=== PATIENT | male | born 1950 | race Caucasian/White ===

== ENCOUNTER 2016-11-09 14:34 | Inpatient (IN) ==
--- NOTE | 2016-11-09 18:25 | Emergency Department Note ---
START Narrative - START START: 66-year-old gentleman who comes in complaining of difficulty breathing. States that he had 5 stents placed several months ago and has had problems with fluid in his lung and fluid around his gallbladder. States he does have a history of gallbladder problems and is trying to get that removed. The patient comes in today with increasing shortness of breath. Physical examination his lungs are diminished in the bases. We will obtain lab work and the patient will be turned over to the structural test engineer Dr. Drummond for further evaluation.
--- NOTE | 2016-11-09 19:45 | Emergency Department Note ---
Disposition Clinical Impression: Pulmonary embolism Qualifiers: Pulmonary embolism type: other Chronicity: acute Acute cor pulmonale presence: with acute cor pulmonale Qualified Code(s): I26.09 - Other pulmonary embolism with acute cor pulmonale Disposition: Admitted As Inpatient Condition: Fair SOB HPI - General Chief Complaint: ED Shortness of Breath/Dyspnea Stated Complaint: ASUNCION/Edema sent per Dr. Phelan Time Seen by Provider: 11/09/16 19:11 Source: patient Limitations: no limitations Nursing Notes Reviewed: Yes Vital Signs Reviewed: Yes - History of Present Illness Patient here for evaluation of difficulty breathing. Past medical history of CHF diabetes, CAD, hypertension, reported PE and medical record however patient states this was a blood clot in his heart and he was placed on Coumadin for this. Medical records will be investigated. Patient states that he has had increasing symptoms over the last 2 months associated with 20 pound weight gain. Patient was seen by Dr. Phelan and was taken off Coumadin as well as Lasix. Patient had an NE requiring 5 stents approximately 3 years ago with resulting EF 10-15%. Concurrently patient has been having gallbladder symptoms and is seen Dr. Hewitt. Dr. Hewitt is requiring clearance before he will take the patient to surgery. Patient presents today due to increasing dyspnea is keeping him from lying down is becoming more constant limiting his activities of daily living. Patient sent here by Dr. Phelan. - Related Data Home Medications Medication Instructions Recorded Confirmed Ascorbic Acid [Vitamin C with Pat 1,000 mg PO DAILY 11/03/16 11/03/16 Hips] Aspirin 81 mg PO DAILY 11/03/16 11/03/16 Furosemide [Lasix] 40 mg PO DAILY 11/03/16 11/03/16 Glimepiride [Amaryl] 2 mg PO BID 11/03/16 11/03/16 [place]-3/Dha/Epa/Fish Oil [Fish Oil 1,000 mg PO DAILY 11/03/16 11/03/16 1,000 mg Softgel] Vitamin B Complex 1 each PO DAILY 11/03/16 11/03/16 Allergies Allergy/AdvReac Type Severity Reaction Status Date / Time No Known Allergies Allergy Verified 11/09/16 14:38 Constitutional: Reports: weakness, weight change. Denies: fever, chills Eyes: Denies: eye pain ENT ED: Denies: ear pain Cardiovascular: Reports: dyspnea on exertion, orthopnea Respiratory: Reports: cough, dyspnea. Denies: wheezes, sputum production Gastrointestinal: Reports: abdominal pain, nausea Genitourinary: Denies: urgency, dysuria Musculoskeletal: Denies: back pain Integumentary: Denies: rash, abrasion Neurological: Denies: headache, weakness Endocrine: Reports: fatigue Past Medical History - Past Medical History Medical history: Reports: CHF, coronary artery disease, diabetes, hyperlipidemia , hypertension, pulmonary embolus Psychiatric history: Reports: no psych history - Social History Smoking Status: Never smoker Alcohol use: Reports: none Drug use: Reports: none Physical Exam - General Limitations: no limitations General appearance: alert, in no apparent distress - ENT ENT exam: normal exam - Neck Neck exam: Present: normal inspection - Chest Chest inspection: Present: normal inspection - Respiratory Respiratory exam: Present: normal lung sounds bilaterally. Absent: respiratory distress - Cardiovascular Cardiovascular exam: Present: regular rate, normal rhythm - Abdominal Exam Abdominal exam: Present: soft, tenderness Abdominal tenderness: Present: RUQ, mild - Extremities Exam Extremities exam: Present: other (+2 pitting edema to the mid thigh.) - Neurological Exam Neurological exam: Present: alert, oriented X3 - Psychiatric Psychiatric exam: Present: normal affect, normal mood - Skin Skin exam: Present: warm, dry Course - Reevaluation(s) Reevaluation #1: Patient has elevated BNP as well as troponin and d-dimer. Patient's shortness of breath and elevated d-dimer will be evaluated with CTA. CTA was positive for bilateral pulmonary emboli. In light of recent discontinuation of Coumadin patient will be started on anticoagulation and admitted to the hospital service for further evaluation and management. - Consultations Consultation #1: Discussed with hospitalist. Hospitalist requests stopping heparin and starting Lovenox. Patient accepted for admission. Vital Signs Temperature 98.9 F 11/09/16 14:38 Pulse Rate 105 11/09/16 14:38 Respiratory Rate 18 11/09/16 14:38 Blood Pressure 113/83 11/09/16 14:38 O2 Sat by Pulse Oximetry 97 11/09/16 14:38 Temperature 98.9 F 11/09/16 14:38 Pulse Rate 94 11/09/16 21:41 Respiratory Rate 16 11/09/16 21:41 Blood Pressure 105/87 11/09/16 21:41 O2 Sat by Pulse Oximetry 98 11/09/16 21:41 Oxygen Delivery Oxygen Delivery Room Air Shortness of Breath/Dyspnea - Medical Records Medical records reviewed: Yes I reviewed the patient's medical records. - Lab Data Lab results reviewed: Yes I reviewed the patient's lab results. Result diagrams: 11/09/16 20:07 11/09/16 20:07 Lab Results 11/09/16 11/09/16 11/09/16 Range/Units 20:07 20:07 20:07 WBC 9.4 (4.3-11.1) K/mcL RBC 4.84 (4.19-5.50) M/mcL Hgb 12.5 L (12.9-16.9) g/dL Hct 39.5 (37.5-50.1) % MCV 81.6 L (83.0-100.0) fL MCH 25.8 L (28.0-33.3) pg MCHC 31.6 (31.6-35.5) g/dL RDW 16.8 H (11.5-14.5) % Plt Count 209 (140-400) K/mcL MPV 10.5 (9.4-12.4) fL Immature Gran % 0.4 (0-4) % Seg Neutrophils % 61.7 % Lymphocytes % 21.2 % Monocytes % 14.8 % Eosinophils % 1.6 % Basophils % 0.3 % Neutrophils # 5.8 (1.6-8.9) K/mcL Lymphocytes # 2.0 (0.6-4.6) K/mcL Monocytes # 1.4 H (0.0-1.3) K/mcL Eosinophils # 0.2 (0.0-0.6) K/mcL Basophils # 0.0 (0.0-0.2) K/mcL PT 16.4 H (9.4-12.1) Seconds INR 1.5 APTT 32.0 (26.0-36.0) Seconds D-Dimer (0-500) ng/mLFEU Sodium 136 (136-145) mEq/L Potassium 3.9 (3.5-4.5) mEq/L Chloride 98 (98-109) mEq/L Carbon Dioxide 26 (19-29) mEq/L BUN 28 H (8-26) mg/dL Creatinine 1.31 H (0.72-1.25) mg/dL Est GFR ( Amer) > 60 (> 60) Est GFR (Non-Af Amer) 55 L (> 60) BUN/Creatinine Ratio 21 (6-26) Glucose 138 H (70-99) mg/dL Calculated Osmolality 290 (280-300) Calcium 8.8 (8.6-10.8) mg/dL Total Bilirubin 2.1 H (0.2-1.2) mg/dL Direct Bilirubin 1.1 H (0.0-0.5) mg/dL Indirect Bilirubin 1.0 (0.0-1.2) mg/dL AST 46 H (5-34) Units/L ALT 52 (0-55) Units/L Alkaline Phosphatase 94 (38-126) Units/L Troponin I (0-0.03) ng/mL B-Natriuretic Peptide (0-100) pg/mL Serum Total Protein 6.6 (6.0-8.3) g/dL Albumin 3.2 L (3.5-5.0) g/dL Globulin 3.4 (2.4-3.5) g/dL Albumin/Globulin Ratio 0.9 L (1.1-2.2) 11/09/16 11/09/16 11/09/16 Range/Units 20:07 20:07 20:07 WBC (4.3-11.1) K/mcL RBC (4.19-5.50) M/mcL Hgb (12.9-16.9) g/dL Hct (37.5-50.1) % MCV (83.0-100.0) fL MCH (28.0-33.3) pg MCHC (31.6-35.5) g/dL RDW (11.5-14.5) % Plt Count (140-400) K/mcL MPV (9.4-12.4) fL Immature Gran % (0-4) % Seg Neutrophils % % Lymphocytes % % Monocytes % % Eosinophils % % Basophils % % Neutrophils # (1.6-8.9) K/mcL Lymphocytes # (0.6-4.6) K/mcL Monocytes # (0.0-1.3) K/mcL Eosinophils # (0.0-0.6) K/mcL Basophils # (0.0-0.2) K/mcL PT (9.4-12.1) Seconds INR APTT (26.0-36.0) Seconds D-Dimer 1895 H (0-500) ng/mLFEU Sodium (136-145) mEq/L Potassium (3.5-4.5) mEq/L Chloride (98-109) mEq/L Carbon Dioxide (19-29) mEq/L BUN (8-26) mg/dL Creatinine (0.72-1.25) mg/dL Est GFR ( Amer) (> 60) Est GFR (Non-Af Amer) (> 60) BUN/Creatinine Ratio (6-26) Glucose (70-99) mg/dL Calculated Osmolality (280-300) Calcium (8.6-10.8) mg/dL Total Bilirubin (0.2-1.2) mg/dL Direct Bilirubin (0.0-0.5) mg/dL Indirect Bilirubin (0.0-1.2) mg/dL AST (5-34) Units/L ALT (0-55) Units/L Alkaline Phosphatase (38-126) Units/L Troponin I 0.04 H* (0-0.03) ng/mL B-Natriuretic Peptide 4451 H (0-100) pg/mL Serum Total Protein (6.0-8.3) g/dL Albumin (3.5-5.0) g/dL Globulin (2.4-3.5) g/dL Albumin/Globulin Ratio (1.1-2.2) - Radiology Data Radiology results reviewed: Yes I reviewed the patient's radiology results. - EKG Data EKG attestation: Yes I reviewed and interpreted this EKG. EKG results narrative: pwitn with SR with occasional supraventricular premature complexes. Patient has ventricular rate of 98. MO 147. QRS 107. QTC 437. Patient has no ST elevations or depressions. Patient has significant Q waves in 23 and aVF which are similar to previous EKG of 11/03/16. Patient has nonspecific T-wave changes consistent with previous EKG. Poor R-wave progression consistent with previous EKG.
--- NOTE | 2016-11-09 19:56 | Emergency Department Note ---
START Narrative - START START: I examined this patient and my medical decision-making was reviewed with the CONFERENCE ORGANIZER/PA/Advanced Practice Nurse/Resident Physician. I agree with the documented findings, disposition and treatment plan as described except to the extent set forth below. ED attending note: Patient seen with emergency medicine resident Dr. Ramos. Please see a copy of her note for details of the H&P, evaluation, management and disposition of this patient. We independently had [id number] contact with the patient Briefly: A 66-year-old patient history of coronary artery disease stents CHF comes in with increasing difficulty in breathing and edema. Some mild chest discomfort. EKG shows no acute ischemic changes. Patient will be worked up. Disposition pending. Patient stable.
[2016-11-09 20:42] LABS: Basophils % 0.3 %; Eosinophils # 0.2 K/mcL (0.0-0.6); Eosinophils % 1.6 %; Hematocrit 39.5 % (37.5-50.1); Hemoglobin 12.5 g/dL (12.9-16.9); Immature Granulocytes % 0.4 % (0-4); Lymphocytes % 21.2 %; Mean Corpuscular HGB Conc 31.6 g/dL (31.6-35.5); Mean Corpuscular Hemoglobin 25.8 pg (28.0-33.3); Mean Corpuscular Volume 81.6 fL (83.0-100.0); Mean Platelet Volume 10.5 fL (9.4-12.4); Monocytes # 1.4 K/mcL (0.0-1.3); Monocytes % 14.8 %; Neutrophils # 5.8 K/mcL (1.6-8.9); Platelet Count 209 K/mcL (140-400); Red Blood Count 4.84 M/mcL (4.19-5.50); Red Cell Distribution Width 16.8 % (11.5-14.5); Segmented Neutrophils % 61.7 %
[2016-11-09 20:48] LABS: INR 1.5; Prothrombin Time 16.4 Seconds (9.4-12.1)
[2016-11-09 20:59] LABS: Alanine Aminotransferase 52 Units/L (0-55); Albumin 3.2 g/dL (3.5-5.0); Albumin/Globulin Ratio 0.9 (1.1-2.2); Alkaline Phosphatase 94 Units/L (38-126); Aspartate Amino Transferase 46 Units/L (5-34); BUN/Creatinine Ratio 21 (6-26); Bilirubin,Direct 1.1 mg/dL (0.0-0.5); Bilirubin,Total 2.1 mg/dL (0.2-1.2); Blood Urea Nitrogen 28 mg/dL (8-26); Calcium 8.8 mg/dL (8.6-10.8); Carbon Dioxide 26 mEq/L (19-29); Chloride 98 mEq/L (98-109); Globulin 3.4 g/dL (2.4-3.5); Glucose 138 mg/dL (70-99); Osmolality,Calculated 290 (280-300); Potassium 3.9 mEq/L (3.5-4.5); Sodium 136 mEq/L (136-145); Total Protein 6.6 g/dL (6.0-8.3); eGFR For African Americans > 60 (> 60); eGFR For Non-African Americans 55 (> 60)
[2016-11-09] MEDS ORDERED: *HR* Heparin 5,000 UNIT/ML VIAL IVP ONE (22:29)
[2016-11-09] MEDS ORDERED: *HR* Heparin 5,000 UNIT/ML VIAL IVP PRN ×2 (22:29)
[2016-11-09] MEDS ORDERED: Heparin 25,000 UNIT/500 ML D5W 25,000 UNIT/500 ML MLS IVC SCH (22:30)
[2016-11-09] MEDS ORDERED: *HR* Enoxaparin 80 MG/0.8 ML SYRINGE SQ STA (23:42)
--- NOTE | 2016-11-10 00:52 | Internal Med History&Physical ---
Date of Encounter: 11/10/16 Time of Encounter: 01:15 Assessment and Plan (1) Pulmonary embolism Current visit: Yes Status: Acute CT showed b/l PE Patient's coumadin was stopped when echo on february 2016 was completed showing resolution of LV thrombus. Patient started on lovenox, will continue BID. Patient is adamant on not restarting coumadin. Will leave decision to day team, consider Xarelto or other agents that patient may be compliant with. Will check echo with concern of right heart strain. [facility] for hypercoagulopathy workup. Qualifiers: Pulmonary embolism type: other Chronicity: acute Acute cor pulmonale presence: with acute cor pulmonale Qualified Code(s): I26.09 - Other pulmonary embolism with acute cor pulmonale (2) CAD S/P percutaneous coronary angioplasty Current visit: Yes Status: Chronic Continue home medications. Pending echo. Consider cardiology consult. (3) CHF (congestive heart failure) Current visit: Yes Status: Chronic Patient does have pitting edema. Consider increasing lasix. Qualifiers: Congestive heart failure type: unspecified congestive heart failure type Congestive heart failure chronicity: chronic Qualified Code(s): I50.9 - Heart failure, unspecified (4) Diabetes mellitus Current visit: Yes Status: Chronic Blood glucose 138 Continue patient's glimepiride. Qualifiers: Diabetes mellitus type: type 2 Diabetes mellitus complication status: without complication Qualified Code(s): E11.9 - Type 2 diabetes mellitus without complications (5) HTN (hypertension) Current visit: Yes Status: Chronic Current BP 105/87. Continue to medically manage. Qualifiers: Hypertension type: essential hypertension Qualified Code(s): I10 - Essential (primary) hypertension (6) Cholelithiasis Current visit: No Status: Acute Patient seen by Dr. Hawthorne, awaiting medical release from cardiology before proceeding with cholecystectomy. Qualifiers: Cholelithiasis location: gallbladder Cholecystitis acuity: unspecified acuity Biliary obstruction: without biliary obstruction Qualified Code(s): K80.00 - Calculus of gallbladder with acute cholecystitis without obstruction Internal Medicine - H&P: HPI Chief complaint: shortness of breath Admitted From: Emergency Dept Plans for Post Hospital Care: Home History of present illness: Mr. Saeed is a 66 year old male presented to the ED for dyspnea since end of Nov. Patient states it had been acutely worsen for the past week; on 11/03/16 patient was seen in the ED and discharged with biliary colic/cholecystitis. Patient returned to the ED tonight, states he still can not tolerate to lay flat and is still having shortness of breath. D dimer was 1895. CTA showed b/l PE with reflux of contrast in the vena cava to the hepatic veins , suggestive of right heart dysfunction. CT also suggestive of bronchitis. PMHx includes DM, HTN, CAD s/p PCI to LAD & RCA, stent x 5. CHF with EF at time of prior CT at 10%, that improved to 35%. Patient sees Dr. Phelan with Cardiology. Patient is adamant that he does not want to restart Coumadin. Patient had a repeat echo in February 2016 that noted previous LV thrombus had resolved. Patient states it was a few months after that when he actually stopped the coumadin. Past Med Surg Social Fam HX - Past Medical History Medical history: CHF, coronary artery disease, diabetes, hyperlipidemia, hypertension, pulmonary embolus Psychiatric history: no psych history - Past Surgical History Surgical History: angioplasty/stent, orthopedic, other - Social History Smoking Status: Never smoker Alcohol use: none Drug use: none - Family History Mother Living Status: Age at : 84 Cause of : CHF Hx Family Cardiac Disorders: Yes Hx Family Respiratory Disorders: Yes (COPD) Internal Medicine - H&P: Meds Ascorbic Acid [Vitamin C with Pat Hips] 1,000 mg PO DAILY 11/03/16 [History] Aspirin 81 mg PO DAILY 11/03/16 [History] Furosemide [Lasix] 40 mg PO DAILY 11/03/16 [History] Glimepiride [Amaryl] 2 mg PO BID 11/03/16 [History] [place]-3/Dha/Epa/Fish Oil [Fish Oil 1,000 mg Softgel] 1,000 mg PO DAILY 11/03/16 [History] Vitamin B Complex 1 each PO DAILY 11/03/16 [History] Allergies No Known Allergies Allergy (Verified 11/09/16 14:38) All Systems PM: A 10-system review of systems was performed and is negative for pertinent findings except as documented above in the HPI. - Constitutional Constitutional: no chills, no fatigue - EENT Nose, mouth and throat: no dysphagia - Cardiovascular Cardiovascular ROS IM: dyspnea, lightheadedness, no chest pain, no syncope - Respiratory Respiratory: cough, dyspnea - Gastrointestinal Gastrointestinal: constipation, nausea, no diarrhea, no hematemesis, no melena, no vomiting - Genitourinary Genitourinary ROS male: no dysuria, no hematuria - Musculoskeletal Musculoskeletal ROS IM: numbness, tingling - Integumentary Integumentary IM: no new lesions, no rash - Neurological Neurological ROS: dizziness, numbness, no focal weakness, no headache(s) - Constitutional Vitals: Temp Pulse Resp BP Pulse Ox 98.9 F 94 16 101/81 98 11/09/16 14:38 11/09/16 21:41 11/10/16 00:06 11/10/16 00:06 11/09/16 21:41 General appearance: Present: cooperative, A&O X 3, no acute distress, answers questions appropriately - Head Head exam: Present: atraumatic, normocephalic - Eye Eye exam: Present: EOMI, PERRL, conjuntiva pink, sclera anicteric Pupils: Present: PERRL - Neck Neck exam general surgery: Present: full ROM, supple, trachea midline - Respiratory Respiratory exam: Present: CTAB. Absent: accessory muscle use, rales, rhonchi, wheezes - Cardiovascular Cardiovascular exam: Present: RRR, +S1, +S2, systolic murmur (3+ holosystolic). Absent: diastolic murmur, gallop, rubs - GI/Abdominal GI/Abdominal exam: Present: normal bowel sounds, soft, no peritoneal signs. Absent: distended, tenderness - Extremities Exam Extremities exam: Present: pedal edema (1+ pitting edema b/l with chronic pigment changes), warm, radial pulses palpable and symetrical. Absent: calf tenderness, cyanotic - Neurological Exam Neurological exam: Present: alert, oriented X3, no focal deficits. Absent: facial droop, speech deficit - Skin Skin exam: Present: dry, intact. Absent: diaphoretic Internal Med - H&P Results - Labs CBC & Chem 7: 11/09/16 20:07 11/09/16 20:07
[2016-11-10] MEDS ORDERED: Albuterol 2.5 MG/3 ML NEBULIZER IH PRN (01:58)
[2016-11-10] MEDS ORDERED: Levofloxacin 500 MG/100 ML 500 MG/100 ML BAG IVPB SCH (02:00)
[2016-11-10] MEDS ORDERED: Ondansetron ODT 4 MG TAB.RAPDIS SL PRN (02:58)
[2016-11-10 06:07] LABS: Hematocrit 40.1 % (37.5-50.1); Hemoglobin 12.6 g/dL (12.9-16.9); Mean Corpuscular HGB Conc 31.4 g/dL (31.6-35.5); Mean Corpuscular Hemoglobin 25.6 pg (28.0-33.3); Mean Corpuscular Volume 81.3 fL (83.0-100.0); Mean Platelet Volume 9.9 fL (9.4-12.4); Platelet Count 192 K/mcL (140-400); Red Blood Count 4.93 M/mcL (4.19-5.50); Red Cell Distribution Width 16.9 % (11.5-14.5)
[2016-11-10 06:16] LABS: INR 1.6; Prothrombin Time 17.2 Seconds (9.4-12.1)
[2016-11-10 06:19] LABS: Activated Partial Thrombo Time 41.1 Seconds (26.0-36.0)
[2016-11-10 06:22] LABS: BUN/Creatinine Ratio 23 (6-26); Blood Urea Nitrogen 28 mg/dL (8-26); Calcium 8.5 mg/dL (8.6-10.8); Carbon Dioxide 26 mEq/L (19-29); Chloride 99 mEq/L (98-109); Glucose 108 mg/dL (70-99); Osmolality,Calculated 284 (280-300); Potassium 3.7 mEq/L (3.5-4.5); Sodium 134 mEq/L (136-145); eGFR For African Americans > 60 (> 60); eGFR For Non-African Americans > 60 (> 60)
[2016-11-10 07:03] LABS: Eosinophils # 0.7 K/mcL (0.0-0.6); Lymphocytes # 2.9 K/mcL (0.6-4.6); Monocytes # 0.9 K/mcL (0.0-1.3); Neutrophils # 4.6 K/mcL (1.6-8.9); Platelet Estimate Normal (Normal)
[2016-11-10 07:04] LABS: Hypochromasia Present (Not Present); Macrocytosis Present (Not Present); Ovalocytes 1+ (Not Present); Polychromasia 1+ (Not Present)
--- NOTE | 2016-11-10 10:21 | Electrocardiograph Report ---
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
[2016-11-10] MEDS: *HR* Enoxaparin 80 MG/0.8 ML SYRINGE SQ SCH ×2 (10:24→23:06)
--- NOTE | 2016-11-10 10:29 | Electrocardiograph Report ---
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
[2016-11-10] MEDS ORDERED: D5% in Water 1,000 ML IV PRN (10:46)
[2016-11-10] MEDS ORDERED: *HR* Dextrose 50 % in Water (Syg) 50 ML SYRINGE IVP PRN (10:46)
[2016-11-10] MEDS ORDERED: Dextrose Gel 15 GM PO PRN ×2 (10:46)
[2016-11-10] MEDS: Furosemide 40 MG/4 ML VIAL IVP SCH (11:26)
[2016-11-10] MEDS: Insulin LISPRO 300 UNITS/3 ML VIAL SQ SCH ×3 (11:36→21:17)
[2016-11-10] MEDS ORDERED: Perflutren Lipid Microsphere 1.3 ML in 0.9 % Sodium Chloride 8.7 ML IVP ONE (14:16)
--- NOTE | 2016-11-10 15:24 | Cardiology Consult Note ---
Date of Encounter: 11/10/16 Time of Encounter: 15:48 Assessment and Plan (1) Pulmonary embolism Current Visit: Yes Status: Acute History of left ventricular thrombus in the past. Coumadin recently discontinued. Echo: 03/05/16 LVEF 35%. Moderate global segmental wall motion abnormality. There is no evidence of left ventricular thrombus. Definity was given. Elevated d-dimer today with CTA report of bilateral acute pulmonary emboli. Also concern for right heart dysfunction due to reflux of contrast into the vena cava and hepatic veins. Troponin 0.04, 0.03, 0.02. Echo today with LV thrombus and decreased EF Recommend coumadin for anticoagulation for LV thrombus. Candidate for ICD placement in the future. Qualifiers: Pulmonary embolism type: other Chronicity: acute Acute cor pulmonale presence: with acute cor pulmonale Qualified Code(s): I26.09 - Other pulmonary embolism with acute cor pulmonale (2) LV (left ventricular) mural thrombus Current Visit: Yes Status: Acute Echo with recurrence of his left ventricular thrombus. Patient has been on Coumadin in the past but is adamant that he does not want to restart this. Patient is currently on Lovenox BID. Recommend anticoagulation with coumadin d/t LV thrombus. (3) CAD S/P percutaneous coronary angioplasty Current Visit: Yes Status: Chronic [facility]: 03/28/14 impressions: There is severe three-vessel coronary artery disease with a mid LAD chronic total occlusion. Patient had successful complex PTCA/ drug-eluting stents placement of the mid LAD chronic total occlusion. Patient had a successful PTCA/drug-eluting stents placement in the mid RCA. LMCA has mild luminal irregularities with mild to moderate calcification. There is a 75 mm long, 100% stenosis in the mid LAD. There is a 50% stenosis in the mid circumflex as well as an 80% stenosis in the first marginal. The right PDA has 40% diffuse disease. There is an 80% stenosis in the proximal RCA, 40 mm long 90% stenosis in the mid RCA Discussion w patient/family: The assessment and plan as outlined above was discussed with the patient and/or family members who expressed understanding and agreement. All questions were answered. Thank you for involving us in the care of your patient. Please call with any questions. History of Present Illness Consult date: 11/10/16 Requesting physician: Prativa Rajbhandari Consult reason: PE, LV thrombus Chief complaint: Dyspnea History of present illness: Mr. Saeed is a 66 year old male hx of CAD s/p PCI LAD and RCA, LV thrombus, DM , HTN who presented to the hospital due to shortness of breath. Patient reports that in early September his Coumadin was stopped. He reports a history of left ventricle thrombus. He states that he felt well at that time. He was also reduced from his Lasix 3 times a day to 1 time a day. He reports a few weeks after stopping the medications that he started developing shortness of breath again. He reports shortness of breath at rest and worse with exertion. His chest pain during the events. He denies fevers, dizziness, lightheadedness or syncopal episodes. Patient was evaluated in the emergency department where an elevated d-dimer prompted a CTA which showed acute pulmonary emboli. Cardiology consulted due to recurrence of left ventricular thrombus. Echo: 03/05/16 LVEF 35%. Moderate global segmental wall motion abnormality. There is no evidence of left ventricular thrombus. Definity was given. [facility]: 03/28/14 impressions: There is severe three-vessel coronary artery disease with a mid LAD chronic total occlusion. Patient had successful complex PTCA/ drug-eluting stents placement of the mid LAD chronic total occlusion. Patient had a successful PTCA/drug-eluting stents placement in the mid RCA. LMCA has mild luminal irregularities with mild to moderate calcification. There is a 75 mm long, 100% stenosis in the mid LAD. There is a 50% stenosis in the mid circumflex as well as an 80% stenosis in the first marginal. The right PDA has 40% diffuse disease. There is an 80% stenosis in the proximal RCA, 40 mm long 90% stenosis in the mid RCA Past Med Surg Social Fam HX - Past Medical History Attestation: Yes The following information was validated with the patient. Source: patient Medical history: CHF, coronary artery disease, diabetes, hyperlipidemia, hypertension, pulmonary embolus Psychiatric history: no psych history - Past Surgical History Surgical History: angioplasty/stent, orthopedic, other - Social History Smoking Status: Never smoker Alcohol use: none Drug use: none - Family History Mother Living Status: Age at : 84 Cause of : CHF Hx Family Cardiac Disorders: Yes Hx Family Respiratory Disorders: Yes (COPD) Medications and Allergies Ascorbic Acid [Vitamin C with Pat Hips] 1,000 mg PO DAILY 11/03/16 [History] Aspirin 81 mg PO DAILY 11/03/16 [History] Furosemide [Lasix] 40 mg PO DAILY 11/03/16 [History] Glimepiride [Amaryl] 2 mg PO BID 11/03/16 [History] [place]-3/Dha/Epa/Fish Oil [Fish Oil 1,000 mg Softgel] 1,000 mg PO DAILY 11/03/16 [History] Vitamin B Complex 1 tab PO DAILY 11/03/16 [History] Allergies No Known Allergies Allergy (Verified 11/09/16 14:38) All Systems Review: A 10-system review of systems was performed and is negative for pertinent findings except as documented above in the HPI. - Constitutional Constitutional: no fever(s), no weakness - Cardiovascular Cardiovascular: dyspnea at rest, dyspnea on exertion, no chest pain at rest, no chest pain with exertion, no palpitations, no syncope - Respiratory Respiratory: cough, dyspnea - Gastrointestinal Gastrointestinal: no abdominal pain Physical Examination General: Conversant, No Apparent Distress HEENT: Atraumatic, Normocephaly, Mucus Membranes Moist Neck: No JVD, Normal carotid pulses Cardiac: Reg Rate and Rhythm, Normal S1 and S2, No Murmur Lungs: Other (Diminished breath sounds bilaterally) Neuro: Alert and responsive, No focal deficits noted Abdomen: Soft, Non-Tender Skin: No rashes noted on visualized skin Musculoskeletal: No Chest Wall Tenderness Extremities: No Clubbing, No Cyanosis, Other (1+ BLE pitting edema) Results 11/10/16 05:56 11/10/16 05:56 Lab Results 11/10/16 11/10/16 11/10/16 05:56 05:56 05:56 WBC 9.2 Hgb 12.6 L Hct 40.1 Plt Count 192 INR 1.6 APTT 41.1 H Sodium Potassium Chloride Carbon Dioxide BUN Creatinine Glucose Calcium Troponin I 0.03 11/10/16 11/10/16 05:56 12:48 WBC Hgb Hct Plt Count INR APTT Sodium 134 L Potassium 3.7 Chloride 99 Carbon Dioxide 26 BUN 28 H Creatinine 1.20 Glucose 108 H Calcium 8.5 L Troponin I 0.02 - Imaging and Cardiology Chest Xray: report reviewed, image reviewed Echo: report reviewed Cardiac cath: report reviewed - EKG Interpretation EKG results cardiology: personally reviewed (EKG: Sinus rhythm with occasional PAC with a rate of [address]-T wave changes in Leads I, II, V4-V6. No ST elevations or depressions.) Consult Discharge Plan - Plan Referrals: Osiris Rome MD [Primary Care Provider] -
--- NOTE | 2016-11-10 16:10 | Event Note ---
Date of Encounter: 11/10/16 Time of Encounter: 16:06 Patient admitted for bilateral PE.Patient's coumadin was stopped when echo on february 2016 was completed showing resolution of LV thrombus. He was started on Lovenox twice a day. Patient was seen at the bedside this morning, denies any chest pain or shortness of breath. Complains of mild cough, vitals have been stable. Patient had an echo done, which shows LV thrombus and reduced EF. 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 he does not want to take coumadin for the need of frequent blood testing. will await cardio recommendations, continue lovenox at this time.
--- NOTE | 2016-11-10 19:38 | Oncology Inp Consult Note ---
Date of Encounter: 11/10/16 Time of Encounter: 19:36 - Data of Consult Patient: new to practice Consult date: 11/10/16 Requesting Physician: Otoniel Connell Primary Care Provider: Osiris Rome MD - Consult Narrative Reason for consult: Suspected hypercoagulable state History of present illness: Mr. Saeed is a 66 year old gentleman seen in consultation regarding suspected hypercoagulable state. He presented for eval of unexplained dyspnea with D dimer 1895. CTA showed b/l PE with reflux of contrast in the vena cava to the hepatic veins , suggestive of right heart dysfunction. He has been started on therapeutic Lovenox for anticoagulation with plan to transition to long-term oral anticoagulant. He has an underlying diagnosis of systolic CHF was managed by Dr. Phelan cardiology. LVEF was as low as 10% and subsequently improved to 35% with medical management. He was on anticoagulation for previously noted LV thrombus and anticoagulation was discontinued in September 2006 and following resolution of his LV thrombus. Due to the logistics of Coumadin management, he is less inclined to a resuming Coumadin for long-term anticoagulation although he is also concerned about the cost of NOACs.Hospital team is currently working with the patient regarding coverage for NOACs. Patient seen and examined at bedside. Chart review for details of ongoing care by hospital team. Cardiology is following due to history of LV thrombus. Input appreciated. Patient reports feeling considerably better. Dyspnea symptoms at initial presentation of improved significantly. No anticoagulation. No new physical complaints. He does not have any other personal history of clotting problems ascites of the thrombus. No family history of clotting disorder. He has 2 children and understands that they may need testing in the event that he is diagnosed with a thrombophilic disorder. Rest of past medical, surgical, family, social history detailed below and verified with patient today. Review of systems: 12 point review of systems performed with patient and positive findings noted in history of present illness. All other systems are negative: Physical exam: Vital Signs Temp 97.9 F 11/10/16 15:44 Pulse 82 11/10/16 15:44 Resp 16 11/10/16 15:44 BP 111/80 11/10/16 15:44 Pulse Ox 97 11/10/16 15:44 GENERAL: * Alert and oriented, comfortable appearing. * Mental Status: Affect appropriate for circumstances HEENT: * Sclerae anicteric. No mucositis or thrush. * No other oral or pharyngeal lesions or erythema. Skin: * No rashes or petechiae. * No evidence of skin malignancy Lymph nodes: * No cervical, supraclavicular, axillary, or inguinal adenopathy. Lungs: * Clear to auscultation bilaterally. * Clear to percussion bilaterally. Cardiovascular: * Regular rate and rhythm. * No gallops, murmurs, or rubs. Abdomen: * Soft, nontender; * No organomegaly or masses palpable. Extremities: * No edema. No calf swelling or tenderness. * No joint deformity. Neurologic: * Alert, * normal gait; * no focal weakness or sensory abnormalities. Results: Laboratory Last Values WBC 9.2 K/mcL (4.3-11.1) 11/10/16 05:56 RBC 4.93 M/mcL (4.19-5.50) 11/10/16 05:56 Hgb 12.6 g/dL (12.9-16.9) L 11/10/16 05:56 Hct 40.1 % (37.5-50.1) 11/10/16 05:56 MCV 81.3 fL (83.0-100.0) L 11/10/16 05:56 MCH 25.6 pg (28.0-33.3) L 11/10/16 05:56 MCHC 31.4 g/dL (31.6-35.5) L 11/10/16 05:56 RDW 16.9 % (11.5-14.5) H 11/10/16 05:56 Plt Count 192 K/mcL (140-400) 11/10/16 05:56 MPV 9.9 fL (9.4-12.4) 11/10/16 05:56 Immature Gran % 0.4 % (0-4) 11/09/16 20:07 Seg Neutrophils % 48.0 % 11/10/16 05:56 Band Neutrophils % 2.0 % (0-4) 11/10/16 05:56 Lymphocytes % 32.0 % 11/10/16 05:56 Monocytes % 10.0 % 11/10/16 05:56 Eosinophils % 8.0 % 11/10/16 05:56 Basophils % 0.3 % 11/09/16 20:07 Neutrophils # 4.6 K/mcL (1.6-8.9) 11/10/16 05:56 Lymphocytes # 2.9 K/mcL (0.6-4.6) 11/10/16 05:56 Monocytes # 0.9 K/mcL (0.0-1.3) 11/10/16 05:56 Eosinophils # 0.7 K/mcL (0.0-0.6) H 11/10/16 05:56 Basophils # 0.0 K/mcL (0.0-0.2) 11/09/16 20:07 Platelet Estimate Normal (Normal) 11/10/16 05:56 Polychromasia 1+ (Not Present) A 11/10/16 05:56 Hypochromasia Present (Not Present) A 11/10/16 05:56 Macrocytosis Present (Not Present) A 11/10/16 05:56 Ovalocytes 1+ (Not Present) A 11/10/16 05:56 PT 17.2 Seconds (9.4-12.1) H 11/10/16 05:56 INR 1.6 11/10/16 05:56 APTT 41.1 Seconds (26.0-36.0) H 11/10/16 05:56 D-Dimer 1895 ng/mLFEU (0-500) H 11/09/16 20:07 Sodium 134 mEq/L (136-145) L 11/10/16 05:56 Potassium 3.7 mEq/L (3.5-4.5) 11/10/16 05:56 Chloride 99 mEq/L (98-109) 11/10/16 05:56 Carbon Dioxide 26 mEq/L (19-29) 11/10/16 05:56 BUN 28 mg/dL (8-26) H 11/10/16 05:56 Creatinine 1.20 mg/dL (0.72-1.25) 11/10/16 05:56 Est GFR ( Amer) > 60 (> 60) 11/10/16 05:56 Est GFR (Non-Af Amer) > 60 (> 60) 11/10/16 05:56 BUN/Creatinine Ratio 23 (6-26) 11/10/16 05:56 Glucose 108 mg/dL (70-99) H 11/10/16 05:56 POC Glucose 88 (58-89) 11/10/16 15:49 Calculated Osmolality 284 (280-300) 11/10/16 05:56 Calcium 8.5 mg/dL (8.6-10.8) L 11/10/16 05:56 Total Bilirubin 2.1 mg/dL (0.2-1.2) H 11/09/16 20:07 Direct Bilirubin 1.1 mg/dL (0.0-0.5) H 11/09/16 20:07 Indirect Bilirubin 1.0 mg/dL (0.0-1.2) 11/09/16 20:07 AST 46 Units/L (5-34) H 11/09/16 20:07 ALT 52 Units/L (0-55) 11/09/16 20:07 Alkaline Phosphatase 94 Units/L (38-126) 11/09/16 20:07 Troponin I 0.02 ng/mL (0-0.03) 11/10/16 12:48 B-Natriuretic Peptide 4451 pg/mL (0-100) H 11/09/16 20:07 Serum Total Protein 6.6 g/dL (6.0-8.3) 11/09/16 20:07 Albumin 3.2 g/dL (3.5-5.0) L 11/09/16 20:07 Globulin 3.4 g/dL (2.4-3.5) 11/09/16 20:07 Albumin/Globulin Ratio 0.9 (1.1-2.2) L 11/09/16 20:07 Radiographic studies: I personally reviewed and interpreted patient's most recent imaging studies dated 11/09/16. I discussed the findings with the patient today. Chest X-Ray 11/09/16 18:23 IMPRESSION: Mild left basilar opacities, most likely atelectasis. D/ / Chalino Trejo MD / Chalino Trejo MD Interpreting Provider: Chalino Trejo MD Chest CTA 11/09/16 21:09 IMPRESSION: Acute pulmonary embolus identified bilaterally which is more pronounced on the right at the level of the right lower lobe pulmonary artery extending into the right lower lobe segmental branches. Cardiomegaly and severe coronary artery atherosclerosis similar to previous exam. Reflux of contrast down the vena cava and into the hepatic veins which can be associated with right heart dysfunction. Bibasilar bronchial wall thickening and scattered tree-in-bud nodular densities. Findings compatible with bronchitis and infectious/inflammatory changes of the lung bases bilaterally. Partially visualized ascites. Critical results were called by Dr. David Overton MD to Dr. Drummond on 11/09/2016 at 22:25. D/ / David Overton MD / David Overton MD Interpreting Provider: David Overton MD Impression/recommendations: Suspected hypercoagulable state: He is currently as well as what appears to be an unprovoked, acute bilateral pulmonary embolism. He also has a history of LV thrombus occurring in the setting of severe LV diastolic dysfunction d/t MD. I had a detailed discussion with the patient regarding his diagnostic considerations were's presentation and we reviewed the basis for consideration of hypercoagulable state as the basis for his current clotting behavior. And will recommend testing for hereditary hypercoagulable states including factor V Leiden and prothrombin gene mutation analysis. Will hold off on rest of thrombophilia workup at this time due to active clot, ongoing anticoagulation which can direct interfere with results of testing. If there is a consideration for discontinuing anticoagulation in the future, it will be reasonable to complete his thrombophilia evaluation after interrupting anticoagulation for 6-8 weeks. D-dimer is elevated and as we will set as a useful to further evaluating clotting recurrence risk in the future. We also discussed anticoagulation options including the superiority of NOACs over Coumadin. Lovenox is an option although he is less inclined to us twice to the injection for several months understandably. [facility] is currently working on comfort for Xarelto or similar agent for patient. I think this is reasonable. Ultimately, he is willing to return to Coumadin for long-term anticoagulation if he runs into coverage/financial issues with NOACs. For his unprovoked pulmonary embolism, he will need anticoagulation for 6 months at a minimum. Depending on the results of breast thrombophilia evaluation and residual clot burden, we may be able to discontinue anticoagulation after initial course. He informs that he had a lower extremity Doppler today which was reportedly negative. I do not have the results. He is a patient of Dr. Rome and will need to catch up on age-appropriate health maintenance including cancer screening upon discharge since occult malignancy can manifest with unusual clotting behavior. We'll follow the patient along side you during this hospitalization but please do not hesitate to call regarding interval hematologic questions as they arise. Thank you for your excellent ongoing care for allowing us to see him while in- house. This report was created using voice recognition software and may contain errors. It was signed but not edited to expedite communication. Past Med Surg Social Fam HX - Past Medical History Medical history: CHF, coronary artery disease, diabetes, hyperlipidemia, hypertension, pulmonary embolus Psychiatric history: no psych history - Past Surgical History Surgical History: angioplasty/stent, orthopedic, other - Social History Smoking Status: Never smoker Alcohol use: none Drug use: none - Family History Mother Living Status: Age at : 84 Cause of : CHF Hx Family Cardiac Disorders: Yes Hx Family Respiratory Disorders: Yes (COPD) Medications and Allergies Ascorbic Acid [Vitamin C with Pat Hips] 1,000 mg PO DAILY 11/03/16 [History] Aspirin 81 mg PO DAILY 11/03/16 [History] Furosemide [Lasix] 40 mg PO DAILY 11/03/16 [History] Glimepiride [Amaryl] 2 mg PO BID 11/03/16 [History] [place]-3/Dha/Epa/Fish Oil [Fish Oil 1,000 mg Softgel] 1,000 mg PO DAILY 11/03/16 [History] Vitamin B Complex 1 tab PO DAILY 11/03/16 [History] Allergies No Known Allergies Allergy (Verified 11/09/16 14:38) Oncology - Exam - Constitutional Vitals: Temp Pulse Resp BP Pulse Ox 97.9 F 82 16 111/80 97 11/10/16 15:44 11/10/16 15:44 11/10/16 15:44 11/10/16 15:44 11/10/16 15:44 Oncology - Results - Labs Labs: Short CBC 11/10/16 Range/Units 05:56 WBC 9.2 (4.3-11.1) K/mcL Hgb 12.6 L (12.9-16.9) g/dL Hct 40.1 (37.5-50.1) % Plt Count 192 (140-400) K/mcL Neutrophils # 4.6 (1.6-8.9) K/mcL BMP 11/10/16 05:56 Sodium 134 L Potassium 3.7 Chloride 99 Carbon Dioxide 26 BUN 28 H Creatinine 1.20 Glucose 108 H Calcium 8.5 L Cardiac Enzymes 11/10/16 11/10/16 Range/Units 05:56 12:48 Troponin I 0.03 0.02 (0-0.03) ng/mL Consult Discharge Plan - Plan Referrals: Osiris Rome MD [Primary Care Provider] -
--- NOTE | 2016-11-11 06:45 | Venous Imaging Report ---
LE Venous Duplex Patient Name:Barber Saeed Order Number:[id number] Procedure Date:11/10/2016 Date:1950Age:66 yrs Gender:Male Location:[facility] Room #: 2A38 Board Operator:Josefina Mcgrath Referring MD:Tia Connell MD auto brake technician:None Reading MD:Chris Perkins MD Primary Indications:Check for DVT Secondary Indications: Impressions: Normal bilateral lower extremity deep and superficial venous exam. Recommendations: After imaging the patient returned to their room. Preliminary noted in [employer]. Test completed on 11/10/2016 at 3:30:00 pm. Findings Venous Duplex Results: Right: Venous imaging of the lower extremity reveals full patency and normal vessel compressibility of the right distal iliac, right common femoral, right superficial femoral, right popliteal, right posterior tibial, right peroneal, right great saphenous and right lesser saphenous. Doppler signals in the evaluated veins were normal. Left: Venous imaging of the lower extremity reveals full patency and normal vessel compressibility of the left distal iliac, left common femoral, left superficial femoral, left popliteal, left posterior tibial, left peroneal, left great saphenous and left lesser saphenous. Doppler signals in the evaluated veins were normal. Prior Study: No prior study available for comparison. Lower Extremity Venous Duplex Side Vein Compress Spontaneous Flow Augment Diameter (cm) Depth (cm) Right Distal Iliac Normal Yes Phasic Yes Right Common Femoral Normal Yes Phasic Yes Right Superficial Femoral Normal Yes Phasic Yes Right Popliteal Normal Yes Phasic Yes Right Posterior Tibial Normal Yes Phasic Yes Right Peroneal Normal Yes Phasic Yes Right Great Saphenous Normal Yes Phasic Yes Right Lesser Saphenous Normal Yes Phasic Yes Left Distal Iliac Normal Yes Phasic Yes Left Common Femoral Normal Yes Phasic Yes Left Superficial Femoral Normal Yes Phasic Yes Left Popliteal Normal Yes Phasic Yes Left Posterior Tibial Normal Yes Phasic Yes Left Peroneal Normal Yes Phasic Yes Left Great Saphenous Normal Yes Phasic Yes Left Lesser Saphenous Normal Yes Phasic Yes Updated by Chris Perkins MD on 11/11/2016 6:41:17 AM electronically signed on 11/11/2016 6:41:30 AM with status of Final
--- NOTE | 2016-11-11 08:01 | Cardiology Progress Note ---
Date of Encounter: 11/11/16 Time of Encounter: 10:25 Assessment and Plan (1) Pulmonary embolism Current Visit: Yes Status: Acute Elevated d dimer with CTA -> Acute b/l PE Echo: LV thrombus with EF 10-15% (Preliminary Report) Patient will require coumadin for LV thrombus -> agreeable to restarting coumadin. Qualifiers: Pulmonary embolism type: other Chronicity: acute Acute cor pulmonale presence: with acute cor pulmonale Qualified Code(s): I26.09 - Other pulmonary embolism with acute cor pulmonale (2) LV (left ventricular) mural thrombus Current Visit: Yes Status: Acute Echo with recurrence of his left ventricular thrombus. Previously on coumadin, which he is agreeable to restarting. (3) CAD S/P percutaneous coronary angioplasty Current Visit: Yes Status: Chronic [facility]: 03/28/14 impressions: There is severe three-vessel coronary artery disease with a mid LAD chronic total occlusion. Patient had successful complex PTCA/ drug-eluting stents placement of the mid LAD chronic total occlusion. Patient had a successful PTCA/drug-eluting stents placement in the mid RCA. LMCA has mild luminal irregularities with mild to moderate calcification. There is a 75 mm long, 100% stenosis in the mid LAD. There is a 50% stenosis in the mid circumflex as well as an 80% stenosis in the first marginal. The right PDA has 40% diffuse disease. There is an 80% stenosis in the proximal RCA, 40 mm long 90% stenosis in the mid RCA Echo with reduced EF from previous. Recommend LHC on an outpatient basis. Discussion w patient/family: The assessment and plan as outlined above was discussed with the patient and/or family members who expressed understanding and agreement. All questions were answered. Thank you for involving us in the care of your patient. Please call with any questions. Subjective Principal diagnosis: LV thrombus, b/l PE Interval history: Patient reports no complaints overnight. States that he is agreeable to being back on coumadin. He denies chest pain. Does report a cough. No other complaints. Objective Vital Signs, Last 4 Hours Temp Pulse Resp BP Pulse Ox 11/11/16 05:00 97.9 F 82 18 107/86 99 General: Conversant, No Apparent Distress HEENT: Atraumatic, Normocephaly, Mucus Membranes Moist Neck: No JVD Cardiac: Reg Rate and Rhythm, Normal S1 and S2, Other (2/6 sys murmur) Lungs: Normal Breath Sounds Neuro: Alert and responsive, No focal deficits noted Abdomen: Soft, Non-Tender Skin: No rashes noted on visualized skin Musculoskeletal: No Chest Wall Tenderness Extremities: No Clubbing, No Cyanosis, Other (1+ BLE edema) Results 11/10/16 05:56 11/10/16 05:56 Lab Results 11/10/16 12:48 Troponin I 0.02 - Imaging and Cardiology Echo: pending Consult Discharge Plan - Plan Referrals: Osiris Rome MD [Primary Care Provider] - 11/19/16 10:30 am (please follow up as schedule...)
[2016-11-11] MEDS: Insulin LISPRO 300 UNITS/3 ML VIAL SQ SCH ×4 (08:24→20:49)
[2016-11-11] MEDS: Ascorbic Acid 500 MG TABLET PO SCH (08:39)
[2016-11-11] MEDS: Aspirin 81 MG TAB.CHEW PO SCH (08:39)
[2016-11-11] MEDS: Vitamin B Complex/Vit C/Vit E 1 EACH TABLET PO SCH (08:39)
[2016-11-11] MEDS: Furosemide 40 MG/4 ML VIAL IVP SCH (08:39)
[2016-11-11] MEDS: levoFLOXacin 500 MG TABLET PO SCH (08:39)
[2016-11-11] MEDS ORDERED: *HR* Warfarin 5 MG TABLET PO ONE (08:52)
[2016-11-11] MEDS ORDERED: MOM Conc 10 ML UD.LIQ PO ONE (11:04)
[2016-11-11] MEDS: *HR* Enoxaparin 80 MG/0.8 ML SYRINGE SQ SCH ×2 (11:55→22:49)
--- NOTE | 2016-11-11 16:29 | Internal Med Progress Note ---
Date of Encounter: 11/11/16 Time of Encounter: 16:26 - Assessment and plan (1) LV (left ventricular) mural thrombus Current Visit: Yes Status: Acute Assessment and plan: Echo with recurrence of his left ventricular thrombus. Previously on coumadin, which he is agreeable to restarting. (2) Pulmonary embolism Current Visit: Yes Status: Acute Assessment and plan: Elevated d dimer with CTA -> Acute b/l PE Echo: LV thrombus with EF 10-15% (Preliminary Report) Patient will require coumadin for LV thrombus -> agreeable to restarting coumadin. will bridge with lovenox. Pt/INR tomm, dc after the level is therapeutic. Qualifiers: Pulmonary embolism type: other Chronicity: acute Acute cor pulmonale presence: with acute cor pulmonale Qualified Code(s): I26.09 - Other pulmonary embolism with acute cor pulmonale (3) Diabetes mellitus Current Visit: Yes Status: Chronic Qualifiers: Diabetes mellitus type: type 2 Diabetes mellitus complication status: without complication Qualified Code(s): E11.9 - Type 2 diabetes mellitus without complications (4) HTN (hypertension) Current Visit: Yes Status: Chronic Qualifiers: Hypertension type: essential hypertension Qualified Code(s): I10 - Essential (primary) hypertension (5) CAD S/P percutaneous coronary angioplasty Current Visit: Yes Status: Chronic Assessment and plan: [facility]: 03/28/14 impressions: There is severe three-vessel coronary artery disease with a mid LAD chronic total occlusion. Patient had successful complex PTCA/ drug-eluting stents placement of the mid LAD chronic total occlusion. Patient had a successful PTCA/drug-eluting stents placement in the mid RCA. LMCA has mild luminal irregularities with mild to moderate calcification. There is a 75 mm long, 100% stenosis in the mid LAD. There is a 50% stenosis in the mid circumflex as well as an 80% stenosis in the first marginal. The right PDA has 40% diffuse disease. There is an 80% stenosis in the proximal RCA, 40 mm long 90% stenosis in the mid RCA Echo with reduced EF from previous. Recommend [facility] on an outpatient basis as per cardiology. - Subjective Interval history: seen at the bedside, denies any complains except some mild cough. he agreed on being restarted on coumadin, was noted to have LV thrombus with B/ L PE. - Constitutional Vitals: Temp Pulse Resp BP Pulse Ox 97.7 F 82 18 103/77 98 11/11/16 15:33 11/11/16 15:33 11/11/16 15:33 11/11/16 15:33 11/11/16 15:33 General appearance: Present: cooperative, A&O X 3, no acute distress, answers questions appropriately Exam: neck- supple chest- b/l clear, no added sounds CVS-s1 and s2, no m/r/g abd-soft, non tender, bs are present ext- no edema Internal Medicine: Result - Labs CBC & Chem 7: 11/10/16 05:56 11/10/16 05:56 - ABG Interpretation ABG results: PT/INR, D-dimer PT 17.2 Seconds (9.4-12.1) H 11/10/16 05:56 D-Dimer 1895 ng/mLFEU (0-500) H 11/09/16 20:07 Consult Discharge Plan - Plan Referrals: Osiris Rome MD [Primary Care Provider] - 11/19/16 10:30 am (please follow up as schedule...)
[2016-11-12 03:50] LABS: Basophils % 0.2 %; Eosinophils # 0.2 K/mcL (0.0-0.6); Hematocrit 38.7 % (37.5-50.1); Hemoglobin 12.1 g/dL (12.9-16.9); Immature Granulocytes % 0.5 % (0-4); Lymphocytes # 1.3 K/mcL (0.6-4.6); Lymphocytes % 21.4 %; Mean Corpuscular HGB Conc 31.3 g/dL (31.6-35.5); Mean Corpuscular Hemoglobin 25.6 pg (28.0-33.3); Monocytes # 0.5 K/mcL (0.0-1.3); Monocytes % 8.5 %; Platelet Count 197 K/mcL (140-400); Red Blood Count 4.72 M/mcL (4.19-5.50); Red Cell Distribution Width 16.5 % (11.5-14.5); Segmented Neutrophils % 66.4 %
[2016-11-12 03:55] LABS: INR 1.3; Prothrombin Time 14.6 Seconds (9.4-12.1)
[2016-11-12 07:53] LABS: Factor V Leiden Normal (Normal); Prothrombin G20210A Mutation Normal (Normal)
[2016-11-12] MEDS: Insulin LISPRO 300 UNITS/3 ML VIAL SQ SCH ×4 (07:53→22:53)
[2016-11-12] MEDS: Aspirin 81 MG TAB.CHEW PO SCH (09:08)
[2016-11-12] MEDS: Furosemide 40 MG/4 ML VIAL IVP SCH (09:08)
[2016-11-12] MEDS: Vitamin B Complex/Vit C/Vit E 1 EACH TABLET PO SCH (09:08)
[2016-11-12] MEDS: Ascorbic Acid 500 MG TABLET PO SCH (09:08)
[2016-11-12] MEDS: levoFLOXacin 500 MG TABLET PO SCH (09:09)
[2016-11-12] MEDS: *HR* Enoxaparin 80 MG/0.8 ML SYRINGE SQ SCH ×2 (11:21→22:53)
--- NOTE | 2016-11-12 17:36 | Internal Med Progress Note ---
Date of Encounter: 11/12/16 Time of Encounter: 17:34 - Assessment and plan (1) LV (left ventricular) mural thrombus Current Visit: Yes Status: Acute Assessment and plan: Echo with recurrence of his left ventricular thrombus. Previously on coumadin, which he is agreeable to restarting. started on coumadin yesterday, INR of 1.3, will consult pharmacy to dose coumadin for therapeutic INR. bridging with lovenox. (2) Pulmonary embolism Current Visit: Yes Status: Acute Assessment and plan: Elevated d dimer with CTA -> Acute b/l PE Echo: LV thrombus with EF 10-15% (Preliminary Report) Patient will require coumadin for LV thrombus -> agreeable to restarting coumadin. will bridge with lovenox. Pt/INR tomm, dc after the level is therapeutic. Qualifiers: Pulmonary embolism type: other Chronicity: acute Acute cor pulmonale presence: with acute cor pulmonale Qualified Code(s): I26.09 - Other pulmonary embolism with acute cor pulmonale (3) Diabetes mellitus Current Visit: Yes Status: Chronic Qualifiers: Diabetes mellitus type: type 2 Diabetes mellitus complication status: without complication Qualified Code(s): E11.9 - Type 2 diabetes mellitus without complications (4) HTN (hypertension) Current Visit: Yes Status: Chronic Qualifiers: Hypertension type: essential hypertension Qualified Code(s): I10 - Essential (primary) hypertension (5) CAD S/P percutaneous coronary angioplasty Current Visit: Yes Status: Chronic Assessment and plan: [facility]: 03/28/14 impressions: There is severe three-vessel coronary artery disease with a mid LAD chronic total occlusion. Patient had successful complex PTCA/ drug-eluting stents placement of the mid LAD chronic total occlusion. Patient had a successful PTCA/drug-eluting stents placement in the mid RCA. LMCA has mild luminal irregularities with mild to moderate calcification. There is a 75 mm long, 100% stenosis in the mid LAD. There is a 50% stenosis in the mid circumflex as well as an 80% stenosis in the first marginal. The right PDA has 40% diffuse disease. There is an 80% stenosis in the proximal RCA, 40 mm long 90% stenosis in the mid RCA Echo with reduced EF from previous. Recommend [facility] on an outpatient basis as per cardiology. - Subjective Interval history: seen at the bedside, denies any complains except some mild cough. he agreed on being restarted on coumadin, was noted to have LV thrombus with B/ L PE. - Constitutional Vitals: Temp Pulse Resp BP Pulse Ox 98.0 F 93 18 110/83 97 11/12/16 16:50 11/12/16 16:50 11/12/16 16:50 11/12/16 16:50 11/12/16 16:50 General appearance: Present: cooperative, A&O X 3, no acute distress, answers questions appropriately Exam: neck- supple chest- b/l clear, no added sounds CVS-s1 and s2, no m/r/g abd-soft, non tender, bs are present ext- no edema Internal Medicine: Result - Labs CBC & Chem 7: 11/12/16 03:40 11/10/16 05:56 Labs: Short CBC 11/12/16 Range/Units 03:40 WBC 6.0 (4.3-11.1) K/mcL Hgb 12.1 L (12.9-16.9) g/dL Hct 38.7 (37.5-50.1) % Plt Count 197 (140-400) K/mcL Neutrophils # 4.0 (1.6-8.9) K/mcL - ABG Interpretation ABG results: PT/INR, D-dimer PT 14.6 Seconds (9.4-12.1) H 11/12/16 03:40 D-Dimer 1895 ng/mLFEU (0-500) H 11/09/16 20:07 Consult Discharge Plan - Plan Referrals: Osiris Rome MD [Primary Care Provider] - 11/19/16 10:30 am (please follow up as schedule...) Masoud Ragland MD [Partnered Physician] - 12/07/16 10:10 am ([facility])
[2016-11-12] MEDS ORDERED: *HR* Warfarin 5 MG TABLET PO SCH (18:00)
[2016-11-12] MEDS ORDERED: Warfarin perPT PO PRN (18:00)
[2016-11-13] MEDS: Insulin LISPRO 300 UNITS/3 ML VIAL SQ SCH ×4 (08:10→22:58)
[2016-11-13] MEDS: Aspirin 81 MG TAB.CHEW PO SCH (08:13)
[2016-11-13] MEDS: Vitamin B Complex/Vit C/Vit E 1 EACH TABLET PO SCH (08:13)
[2016-11-13] MEDS: levoFLOXacin 500 MG TABLET PO SCH (08:13)
[2016-11-13] MEDS: Ascorbic Acid 500 MG TABLET PO SCH (08:13)
[2016-11-13] MEDS: Furosemide 40 MG TABLET PO SCH (08:14)
[2016-11-13 09:37] LABS: INR 1.2; Prothrombin Time 13.5 Seconds (9.4-12.1)
[2016-11-13] MEDS: *HR* Enoxaparin 80 MG/0.8 ML SYRINGE SQ SCH ×2 (12:11→23:01)
--- NOTE | 2016-11-13 15:38 | Internal Med Progress Note ---
Date of Encounter: 11/13/16 Time of Encounter: 15:36 - Assessment and plan (1) LV (left ventricular) mural thrombus Current Visit: Yes Status: Acute Assessment and plan: Echo with recurrence of his left ventricular thrombus. Previously on coumadin, which he is agreeable to restarting. started on coumadin INR today 1.2, pharmacy dosing Coumadin., We will discharge once therapeutic on Coumadin. bridging with lovenox. (2) Pulmonary embolism Current Visit: Yes Status: Acute Assessment and plan: Elevated d dimer with CTA -> Acute b/l PE Echo: LV thrombus with EF 10-15% (Preliminary Report) Patient will require coumadin for LV thrombus -> agreeable to restarting coumadin. will bridge with lovenox. Pt/INR daily, dc after the level is therapeutic. Qualifiers: Pulmonary embolism type: other Chronicity: acute Acute cor pulmonale presence: with acute cor pulmonale Qualified Code(s): I26.09 - Other pulmonary embolism with acute cor pulmonale (3) Diabetes mellitus Current Visit: Yes Status: Chronic Qualifiers: Diabetes mellitus type: type 2 Diabetes mellitus complication status: without complication Qualified Code(s): E11.9 - Type 2 diabetes mellitus without complications (4) HTN (hypertension) Current Visit: Yes Status: Chronic Qualifiers: Hypertension type: essential hypertension Qualified Code(s): I10 - Essential (primary) hypertension (5) CAD S/P percutaneous coronary angioplasty Current Visit: Yes Status: Chronic Assessment and plan: [facility]: 03/28/14 impressions: There is severe three-vessel coronary artery disease with a mid LAD chronic total occlusion. Patient had successful complex PTCA/ drug-eluting stents placement of the mid LAD chronic total occlusion. Patient had a successful PTCA/drug-eluting stents placement in the mid RCA. LMCA has mild luminal irregularities with mild to moderate calcification. There is a 75 mm long, 100% stenosis in the mid LAD. There is a 50% stenosis in the mid circumflex as well as an 80% stenosis in the first marginal. The right PDA has 40% diffuse disease. There is an 80% stenosis in the proximal RCA, 40 mm long 90% stenosis in the mid RCA Echo with reduced EF from previous. Recommend [facility] on an outpatient basis as per cardiology. - Time Spent With Patient 25 - 35 minutes - Subjective Interval history: seen at the bedside, denies any complains except some mild cough. he has been started on coumadin, bridged with heparin for LV thrombus with B/ L PE. - Constitutional Vitals: Temp Pulse Resp BP Pulse Ox 97.6 F 93 16 107/76 95 11/13/16 11:41 11/13/16 11:41 11/13/16 11:41 11/13/16 11:41 11/13/16 11:41 General appearance: Present: cooperative, A&O X 3, no acute distress, answers questions appropriately Exam: neck- supple chest - b/l clear, no added sounds CVS-s1 and s2, no mr'r'g abd-soft, non tender , bs are present ext- ariane lynnette Internal Medicine: Result - Labs CBC & Chem 7: 11/12/16 03:40 11/10/16 05:56 - ABG Interpretation ABG results: PT/INR, D-dimer PT 13.5 Seconds (9.4-12.1) H 11/13/16 08:58 D-Dimer 1895 ng/mLFEU (0-500) H 11/09/16 20:07 Consult Discharge Plan - Plan Referrals: Osiris Rome MD [Primary Care Provider] - 11/19/16 10:30 am (please follow up as schedule...) Masoud Ragland MD [Partnered Physician] - 12/07/16 10:10 am ([facility])
[2016-11-13] MEDS ORDERED: *HR* Warfarin 7.5 MG TABLET PO ONE (18:00)
[2016-11-14 05:33] LABS: INR 1.3; Prothrombin Time 13.9 Seconds (9.4-12.1)
[2016-11-14] MEDS: Aspirin 81 MG TAB.CHEW PO SCH (08:14)
[2016-11-14] MEDS: Vitamin B Complex/Vit C/Vit E 1 EACH TABLET PO SCH (08:14)
[2016-11-14] MEDS: levoFLOXacin 500 MG TABLET PO SCH (08:14)
[2016-11-14] MEDS: Ascorbic Acid 500 MG TABLET PO SCH (08:15)
[2016-11-14] MEDS: Furosemide 40 MG TABLET PO SCH (08:15)
[2016-11-14] MEDS: Insulin LISPRO 300 UNITS/3 ML VIAL SQ SCH ×4 (11:56→21:11)
[2016-11-14] MEDS: *HR* Enoxaparin 80 MG/0.8 ML SYRINGE SQ SCH ×2 (11:57→21:14)
[2016-11-14] MEDS ORDERED: *HR* Warfarin 7.5 MG TABLET PO ONE (18:00)
[2016-11-14] MEDS ORDERED: GuaiFENesin/Codeine Oral Soln 5 ML UDC PO ONE (20:43)
[2016-11-15 04:34] LABS: INR 1.4; Prothrombin Time 15.3 Seconds (9.4-12.1)
[2016-11-15] MEDS: Insulin LISPRO 300 UNITS/3 ML VIAL SQ SCH ×4 (07:43→22:01)
[2016-11-15] MEDS: Furosemide 40 MG TABLET PO SCH (09:24)
[2016-11-15] MEDS: Vitamin B Complex/Vit C/Vit E 1 EACH TABLET PO SCH (09:24)
[2016-11-15] MEDS: Ascorbic Acid 500 MG TABLET PO SCH (09:24)
[2016-11-15] MEDS: levoFLOXacin 500 MG TABLET PO SCH (09:24)
[2016-11-15] MEDS: Aspirin 81 MG TAB.CHEW PO SCH (09:24)
[2016-11-15] MEDS: *HR* Enoxaparin 80 MG/0.8 ML SYRINGE SQ SCH ×2 (12:36→22:01)
--- NOTE | 2016-11-15 17:19 | Internal Med Progress Note ---
Date of Encounter: 11/15/16 Time of Encounter: 17:13 - Assessment and plan (1) LV (left ventricular) mural thrombus Current Visit: Yes Status: Acute Assessment and plan: Echo with recurrence of his left ventricular thrombus. started on coumadin INR today 1.2, pharmacy dosing Coumadin. We will discharge once therapeutic on Coumadin. bridging with lovenox. if he is comfortable to give lovenox to himself, we can arrange him to be dc with lovenox ands follow up on on the [facility] clinic. (2) Pulmonary embolism Current Visit: Yes Status: Acute Assessment and plan: Elevated d dimer with CTA -> Acute b/l PE Echo: LV thrombus with EF 10-15% (Preliminary Report) Patient will require coumadin for LV thrombus -> agreeable to restarting coumadin. will bridge with lovenox. Pt/INR daily, today still subtherapeutic at 1.4. Qualifiers: Pulmonary embolism type: other Chronicity: acute Acute cor pulmonale presence: with acute cor pulmonale Qualified Code(s): I26.09 - Other pulmonary embolism with acute cor pulmonale (3) Diabetes mellitus Current Visit: Yes Status: Chronic Qualifiers: Diabetes mellitus type: type 2 Diabetes mellitus complication status: without complication Qualified Code(s): E11.9 - Type 2 diabetes mellitus without complications (4) HTN (hypertension) Current Visit: Yes Status: Chronic Qualifiers: Hypertension type: essential hypertension Qualified Code(s): I10 - Essential (primary) hypertension (5) CAD S/P percutaneous coronary angioplasty Current Visit: Yes Status: Chronic Assessment and plan: [facility]: 03/28/14 impressions: There is severe three-vessel coronary artery disease with a mid LAD chronic total occlusion. Patient had successful complex PTCA/ drug-eluting stents placement of the mid LAD chronic total occlusion. Patient had a successful PTCA/drug-eluting stents placement in the mid RCA. LMCA has mild luminal irregularities with mild to moderate calcification. There is a 75 mm long, 100% stenosis in the mid LAD. There is a 50% stenosis in the mid circumflex as well as an 80% stenosis in the first marginal. The right PDA has 40% diffuse disease. There is an 80% stenosis in the proximal RCA, 40 mm long 90% stenosis in the mid RCA Echo with reduced EF from previous. Recommend [facility] on an outpatient basis as per cardiology. - Time Spent With Patient 25 - 35 minutes - Subjective Interval history: seen at the bedside, denies any complains he has been started on coumadin, bridged with heparin for LV thrombus with B/ L PE. INR still subtherapeutic, pharmacy to dose coumadin - Constitutional Vitals: Temp Pulse Resp BP Pulse Ox 98.2 F 93 16 102/76 93 L 11/15/16 16:16 11/15/16 16:16 11/15/16 16:16 11/15/16 16:16 11/15/16 16:16 General appearance: Present: cooperative, A&O X 3, no acute distress, answers questions appropriately Exam: neck-supple chest- b/l clear, no added sounds CVs-s1 and s2, no mr/g/ abd-soft, non tender, bs are present. ext- no edema Internal Medicine: Result - Labs CBC & Chem 7: 11/12/16 03:40 11/10/16 05:56 - ABG Interpretation ABG results: PT/INR, D-dimer PT 15.3 Seconds (9.4-12.1) H 11/15/16 03:43 D-Dimer 1895 ng/mLFEU (0-500) H 11/09/16 20:07 Consult Discharge Plan - Plan Referrals: Osiris Rome MD [Primary Care Provider] - 11/19/16 10:30 am (please follow up as schedule...) Masoud Ragland MD [Partnered Physician] - 12/07/16 10:10 am ([facility])
[2016-11-15] MEDS ORDERED: *HR* Warfarin 7.5 MG TABLET PO SCH (18:00)
--- NOTE | 2016-11-15 18:28 | ECHO - Doppler Report ---
Echo with Imaging Enhancement Agent Name: Barber Saeed Date of Study: 11/10/2016 Date: 1950 Ht: 69.0 in Medical Record#: [id number] Age: 66 Wt: 156.0 lb Gender: Male BSA: 1.86 Order #: [id number] Location: [facility] Room #: [id number] Reading Physician: Anali Capone DO Product Merchandiser: Vandana Horton Ordering Physician: Aristides Clements DO Primary Physician: Osiris Rome MD Indications: R/O RIGHT HEART STRAIN W/ PE Impressions: LVEF 15-20%. Severely global LV diastolic dysfunction. There is an immobile layered thrombus occupying the apex which is seen with and without Definity. RV is normal in size with mild reduction in function. Mild mitral regurgitation. Mild tricuspid regurgitation. Mild pulmonic regurgitation. Estimated RVSP was 44 mmHg. Mild pulmonary hypertension. The IVC is dilated. Findings verbally communicated to Dr. Connell. Left Ventricular Wall Motion: Rest Echo Findings The apical inferior, mid inferior, basal inferior, mid anterior, basal anterior, mid inferior septal, basal inferior septal, apical lateral, mid anterior lateral, basal anterior lateral, mid anterior septal, mid inferior lateral, basal anterior septal and basal inferior lateral longo were hypokinetic. The apex, apical anterior and apical septal longo were not visualized. Findings: Study Quality * Technically adequate exam. ECG Findings * Normal sinus rhythm. Left Ventricle * Moderate left ventricular diastolic dysfunction. * There is a left ventricular thrombus. * Definity echo contrast was used. * LVEF 15-20%. * Normal LV size. Aortic Valve * No aortic regurgitation. * Aortic valve not well visualized. * No aortic stenosis. Mitral Valve * No mitral stenosis. * Mild mitral regurgitation. * Mildly calcified mitral valve leaflets. * Mildly thickened mitral valve leaflets. Tricuspid Valve * Normal tricuspid valve structure. * Mild-moderate tricuspid regurgitation. * Estimated RA pressure is 15 mmHg. * Estimated RVSP is 44 mmHg. * Mild pulmonary hypertension. Pulmonic Valve * Pulmonic valve is not well visualized. * No pulmonic stenosis. * Mild pulmonic regurgitation. Pulmonary Artery * Pulmonary artery not well visualized. Right Ventricle * Normal RV size with mild reduction in function. Interatrial Septum * No evidence of PFO by color Doppler. IVC * The IVC is dilated. * < 50% respiratory change. Right Atrium * Normal right atrial size. Left Atrium * Mildly dilated left atrium. Aorta * Not well visualized. Pericardium * There is no pericardial effusion present. History Hypertension Hypercholesteremia History of CAD/PTCA 03/05/16 a Previous Echo was performed. Contrast: Definity 1.3 ml in 8.7 ml of saline 3 ml. Measurements: BP: 108/ 77 2D Normal Values IVSd: 1.30 cm 0.6 - 1.0 cm LVIDd: 4.90 cm 3.7 - 5.6 cm LVPWd: 1.20 cm 0.6 - 1.1 cm LVIDs: 4.20 cm 1.5 - 3.6 cm AO: 3.60 cm < 4.0 cm LA: 3.50 cm 2.0 - 4.0cm %FS: 14.30 cm >25 % LVOT Diam: 2.00 cm LA volume: 60 Mitral Valve Peak E:.57 m/sec Peak A:.35 m/sec E/A Ratio:1.7 Peak E' Lat Jeovanny:9.36 cm/s Peak E' Med Jeovanny:3.51 cm/s E/E' Lat Ratio:6.1 E/E' Med Ratio:16.3 Tricuspid Valve TV Regurg Peak Grad: 29.00mmHg TV Regurg Peak Jeovanny: 2.67m/sec Updated by Anali Capone on 11/10/2016 3:00:52 PM electronically signed on 11/15/2016 6:22:26 PM with status of Final Wall Motion Reed: 1=Normal, 2=Hypokinesis, 3=Akinesis, 4=Dyskinesis, 5=Aneurysmal, 6=Hyperkinetic, X=Not Visualized (Blank)=Missing
[2016-11-15] MEDS: traMADol 50 MG TABLET PO PRN (22:02)
[2016-11-16] MEDS: traMADol 50 MG TABLET PO PRN (06:43)
[2016-11-16 06:49] VITALS: BP 117/92
[2016-11-16 07:36] LABS: INR 1.8; Prothrombin Time 19.7 Seconds (9.4-12.1)
[2016-11-16] MEDS: Insulin LISPRO 300 UNITS/3 ML VIAL SQ SCH (07:47)
--- NOTE | 2016-11-16 09:08 | Discharge Summary ---
Date of Encounter: 11/16/16 Time of Encounter: 09:05 - Discharge Diagnosis (1) LV (left ventricular) mural thrombus Priority: Primary Status: Acute (2) Pulmonary embolism Priority: Primary Status: Acute Qualifiers: Pulmonary embolism type: other Chronicity: acute Acute cor pulmonale presence: with acute cor pulmonale Qualified Code(s): I26.09 - Other pulmonary embolism with acute cor pulmonale (3) Diabetes mellitus Priority: Secondary Status: Chronic Qualifiers: Diabetes mellitus type: type 2 Diabetes mellitus complication status: without complication Qualified Code(s): E11.9 - Type 2 diabetes mellitus without complications (4) HTN (hypertension) Priority: Secondary Status: Chronic Qualifiers: Hypertension type: essential hypertension Qualified Code(s): I10 - Essential (primary) hypertension (5) CAD S/P percutaneous coronary angioplasty Priority: Secondary Status: Chronic - Discharge Medications Prescriptions: Enoxaparin [Lovenox] 70 mg SQ Q12H #10 syringe Warfarin [Coumadin] 7.5 mg PO DAILY@1800 #30 tablet Home Medications: Ascorbic Acid [Vitamin C with Pat Hips] 1,000 mg PO DAILY 11/03/16 [History] Aspirin 81 mg PO DAILY 11/03/16 [History] Furosemide [Lasix] 40 mg PO DAILY 11/03/16 [History] Glimepiride [Amaryl] 2 mg PO BID 11/03/16 [History] Doucette-3/Dha/Epa/Fish Oil [Fish Oil 1,000 mg Softgel] 1,000 mg PO DAILY 11/03/16 [History] Vitamin B Complex 1 tab PO DAILY 11/03/16 [History] Enoxaparin [Lovenox] 70 mg SQ Q12H #10 syringe 11/16/16 [Rx] Warfarin [Coumadin] 7.5 mg PO DAILY@1800 #30 tablet 11/16/16 [Rx] Allergies/Adverse Reactions: Allergies No Known Allergies Allergy (Verified 11/09/16 14:38) Date of admission: 11/09/16 23:35 Primary care physician: Osiris Rome MD Consults: 11/10/16 07:22 Consult to Oncology Hematology [CONS] Routine Consulting Provider: Glynn Steiner Reason for Consult: HYPERCOAGULABILTY EVALUATION Call Completed: No 11/10/16 15:11 Consult to Cardiology [CONS] Routine Comment: Consulting Provider: [facility] [place] Reason for Consult: please evaluate for reduced LVEF and LV thrombus in a patient admitted with acute PE. thank you Call Completed: Yes Discharging clinician: Otoniel Connell Anticipated date of discharge: 11/16/16 - Patient Status Disposition: Home, Self-Care Condition: Fair Functional capacity at discharge: independent ambulation Overall status at discharge: patient is back to baseline - Discharge Instructions Instructions: Enoxaparin (Injection), Pulmonary Embolism (DC) Follow Up With: Clinic, Anticoagulation [Other] - 11/18/16 9:15 am Osiris Rome MD [Primary Care Provider] - 11/19/16 10:30 am (please follow up as schedule...) Masoud Ragland MD [Partnered Physician] - 12/07/16 10:10 am ([facility]) - Diet and Activity Activity: resume usual activities as tolerated Diet: regular diet Interval History: Mr. Saeed is a 66 year old male presented to the ED for dyspnea since end of Sep. Patient states it had been acutely worsen for the past week; on 11/03/16 patient was seen in the ED and discharged with biliary colic/cholecystitis. Patient returned to the ED tonight, states he still can not tolerate to lay flat and is still having shortness of breath. D dimer was 1895. CTA showed b/l PE with reflux of contrast in the vena cava to the hepatic veins , suggestive of right heart dysfunction. CT also suggestive of bronchitis. PMHx includes DM, HTN, CAD s/p PCI to LAD & RCA, stent x 5. CHF with EF at time of prior [place] at 10%, that improved to 35%. Patient sees Dr. Phelan with Cardiology. Patient is adamant that he does not want to restart Coumadin. Patient had a repeat echo in February 2016 that noted previous LV thrombus had resolved. Patient states it was a few months after that when he actually stopped the coumadin. Hospital course: CTA was done that showed Acute b/l PE Elevated d dimer, was started on lovenox. Echo: LV thrombus with EF 15-20% with severe global dysfunction. Patient will require coumadin for LV thrombus as well as for his PE -> agreeable to restarting coumadin. he was started on coumadin with lovenox for bridging. after 4 days, he is still subtherapeutic. it was discussed and planned for him to get lovenox shots at home with the coumadin and f/u at clinic on . patient is being dc in stable condition today, Time spent discussing smoking cessation with patient: more than 10 minutes - Time Spent with Patient Total time spent providing and/or coordinating discharge services: Greater than 30 minutes - Constitutional Vitals: Temp Pulse Resp BP Pulse Ox 97.7 F 88 17 117/92 94 L 11/16/16 06:40 11/16/16 06:40 11/16/16 06:40 11/16/16 06:40 11/16/16 06:40 General appearance: Present: cooperative, A&O X 3, no acute distress, answers questions appropriately Exam: neck- supple chest- b/l clear, no added sounds CVS-s1 and s2, no m/r/g abd-soft, non tender, bs are present ext- no edema
[2016-11-16] MEDS: Ascorbic Acid 500 MG TABLET PO SCH (09:34)
[2016-11-16] MEDS: Furosemide 40 MG TABLET PO SCH (09:34)
[2016-11-16] MEDS: Vitamin B Complex/Vit C/Vit E 1 EACH TABLET PO SCH (09:34)
[2016-11-16] MEDS: levoFLOXacin 500 MG TABLET PO SCH (09:34)
[2016-11-16] MEDS: Aspirin 81 MG TAB.CHEW PO SCH (09:34)
[2016-11-16] MEDS: *HR* Enoxaparin 80 MG/0.8 ML SYRINGE SQ SCH (09:36)
== END 2016-11-16 12:38 | disposition home or self-care (01) | DRG 175 ==
LOC: EMEROO 14:34 → 2ANU 23:35
PROVIDERS: ADMIT Family Medicine; ATTEND Internal Medicine Endocrinology, Diabetes & Metabolism

== ENCOUNTER 2017-04-24 20:16 | Inpatient (IN) ==
--- NOTE | 2017-04-24 20:37 | Emergency Department Note ---
Disposition Clinical Impression: CHF exacerbation Qualifiers: Congestive heart failure type: systolic Qualified Code(s): I50.23 - Acute on chronic systolic (congestive) heart failure Disposition: Admitted As Inpatient Condition: Good SOB HPI - General Chief Complaint: ED Shortness of Breath/Dyspnea Stated Complaint: shelia Time Seen by Provider: 04/24/17 20:34 Source: patient Mode of arrival: private vehicle Limitations: no limitations Nursing Notes Reviewed: Yes Vital Signs Reviewed: Yes - History of Present Illness 66-year-old male history of CHF, "gallbladder issues", PE on Coumadin who presents to the ER with a chief complaint of shortness of breath. Patient reports that he was diagnosed with a PE and was taken off this Coumadin back in September. He states that he is now back on that. He states during this time that he has had issues with his gallbladder and has not with a surgeon for removal. He states they were in the process of surgical clearance. He also states that he has had a cough at home and does have a history of congestive heart failure. The patient requires frequent redirection during history taking. He denies a history of COPD her oxygen dependency. No abdominal pain, nausea, vomiting or diarrhea. No other complaints. Pt Subjective Complaint: shortness of breath Onset (ago): unknown Context: other ("Gallbladder issues") Severity: moderate Consistency/Duration: constant Improves with: nothing Worsens with: nothing Known history of: congestive heart failure Associated symptoms: Reports: cough. Denies: chest pain, fever, nausea/vomiting , abdominal pain Treatment prior to arrival: none Cough present: Yes Cough Description: Involuntary Cough Frequency: Intermittent Sputum production: No Sputum Amount: None - Related Data Home oxygen amount: none Home Medications Medication Instructions Recorded Confirmed Ascorbic Acid [Vitamin C with Pat 1,000 mg PO DAILY 11/03/16 12/16/16 Hips] Aspirin 81 mg PO DAILY 11/03/16 12/16/16 Furosemide [Lasix] 40 mg PO TID 11/03/16 12/16/16 Glimepiride [Amaryl] 2 mg PO BID 11/03/16 12/16/16 [place]-3/Dha/Epa/Fish Oil [Fish Oil 1,000 mg PO DAILY 11/03/16 12/16/16 1,000 mg Softgel] Vitamin B Complex 1 tab PO DAILY 11/03/16 12/16/16 Warfarin [Coumadin] 7.5 mg PO TU 11/29/16 12/16/16 Carvedilol 3.125 mg PO BID 12/16/16 12/16/16 Lisinopril 2.5 mg PO DAILY 12/16/16 12/16/16 Warfarin [Coumadin] 3.75 mg PO SUMOWETHFRSA 12/16/16 12/16/16 Allergies Allergy/AdvReac Type Severity Reaction Status Date / Time No Known Allergies Allergy Verified 12/16/16 08:09 All systems ED: reviewed and negative except as stated. Constitutional: Denies: fever Cardiovascular: Denies: chest pain Respiratory: Reports: cough, dyspnea Gastrointestinal: Denies: abdominal pain, nausea, vomiting, diarrhea Past Medical History - Past Medical History Attestation: Yes The following information was validated with the patient. Source: patient Medical history: Reports: CHF, coronary artery disease, diabetes, hyperlipidemia , hypertension, pulmonary embolus Surgical history: Reports: angioplasty/stent, orthopedic, other Psychiatric history: Reports: no psych history - Social History Smoking Status: Never smoker Smokeless Tobacco Status: No Alcohol use: Reports: none Drug use: Reports: none Physical Exam - General Limitations: no limitations General appearance: alert, cachectic - Head Head exam: atraumatic, normocephalic, normal inspection - Eye Eye exam: Present: normal appearance, EOMI - ENT ENT exam: normal exam - Neck Neck exam: Present: normal inspection - Chest Chest inspection: Present: normal inspection, symmetric chest wall rise - Respiratory Respiratory exam: Present: normal lung sounds bilaterally - Cardiovascular Cardiovascular exam: Present: regular rate, normal rhythm, normal heart sounds - Abdominal Exam Abdominal exam: Present: soft, Non-Tender. Absent: tenderness, distention, guarding, rigidity - Extremities Exam Extremities exam: Present: normal inspection, full ROM - Expanded Upper Extremity Exam Shoulder exam: Present: normal inspection, full ROM Arm exam: Present: normal inspection, full ROM Elbow exam: Present: normal inspection, full ROM Forearm/Wrist exam: Present: normal inspection, full ROM Hand exam: Present: normal inspection, full ROM - Expanded Lower Extremity Exam Hip/Pelvis exam: Present: normal inspection, full ROM Upper leg exam: Present: normal inspection, full ROM Knee exam: Present: normal inspection, full ROM Lower leg exam: Present: normal inspection, full ROM, swelling (2+ pitting edema lower extremities) Ankle exam: Present: normal inspection, full ROM Foot/toe exam: Present: normal inspection, full ROM - Neurological Exam Neurological exam: Present: alert - Psychiatric Psychiatric exam: Present: normal affect, normal mood - Skin Skin exam: Present: warm, dry, intact, normal color Course Course Narrative: Patient seen and examined. Vital signs reviewed. He is mildly hypotensive here. Mentating appropriately. EKG, chest x-ray as well as abdominal labs ordered. Disposition improved. - Reevaluation(s) Reevaluation #1: Discussed results of imaging and lab work with the patient. Vital Signs Temperature 97.5 F L 04/24/17 20:17 Pulse Rate 97 04/24/17 20:17 Respiratory Rate 20 04/24/17 20:17 Blood Pressure 91/67 04/24/17 20:17 O2 Sat by Pulse Oximetry 97 04/24/17 20:17 Temperature 97.9 F 04/24/17 22:22 Pulse Rate 99 04/24/17 22:22 Respiratory Rate 16 04/24/17 22:22 Blood Pressure 100/74 04/24/17 22:22 O2 Sat by Pulse Oximetry 93 04/24/17 22:39 Oxygen Delivery Oxygen Delivery Room Air Shortness of Breath/Dyspnea - [facility] Narrative Medical decision making narrative: 66-year-old male presents to the ER due to shortness of breath. He is a poor historian and unable to really determine when the shortness of breath started. He has no current oxygen requirement. His EKG is nonischemic. Chest x-ray is unchanged from prior. His BNP is elevated greater than 5000 here. Patient given 40 mg of Lasix IV and admitted to the hospitalist service for further management. - Lab Data Lab results reviewed: Yes I reviewed the patient's lab results. Result diagrams: 04/24/17 20:57 04/24/17 20:57 Lab Results 04/24/17 04/24/17 04/24/17 Range/Units 20:57 20:57 20:57 WBC 5.6 (4.3-11.1) K/mcL RBC 5.58 H (4.19-5.50) M/mcL Hgb 12.9 (12.9-16.9) g/dL Hct 42.5 (37.5-50.1) % MCV 76.2 L (83.0-100.0) fL MCH 23.1 L (28.0-33.3) pg MCHC 30.4 L (31.6-35.5) g/dL RDW 22.0 H (11.5-14.5) % Plt Count 180 (140-400) K/mcL MPV 10.4 (9.4-12.4) fL Immature Gran % 0.2 (0-4) % Seg Neutrophils % 49.1 % Lymphocytes % 38.5 % Monocytes % 10.2 % Eosinophils % 1.3 % Basophils % 0.7 % Neutrophils # 2.7 (1.6-8.9) K/mcL Lymphocytes # 2.2 (0.6-4.6) K/mcL Monocytes # 0.6 (0.0-1.3) K/mcL Eosinophils # 0.1 (0.0-0.6) K/mcL Basophils # 0.0 (0.0-0.2) K/mcL PT 27.4 H (9.4-12.1) Seconds INR 2.5 Sodium 135 L (136-145) mEq/L Potassium 3.8 (3.5-4.5) mEq/L Chloride 100 (98-109) mEq/L Carbon Dioxide 23 (19-29) mEq/L BUN 26 (8-26) mg/dL Creatinine 1.21 (0.72-1.25) mg/dL Est GFR ( Amer) > 60 (> 60) Est GFR (Non-Af Amer) 60 (> 60) BUN/Creatinine Ratio 21 (6-26) Glucose 62 L (70-99) mg/dL Calculated Osmolality 283 (280-300) Calcium 8.6 (8.6-10.8) mg/dL Total Bilirubin 4.2 H (0.2-1.2) mg/dL Direct Bilirubin 2.7 H (0.0-0.5) mg/dL Indirect Bilirubin 1.5 H (0.0-1.2) mg/dL AST 25 (5-34) Units/L ALT 10 (0-55) Units/L Alkaline Phosphatase 114 (38-126) Units/L Troponin I (0-0.03) ng/mL B-Natriuretic Peptide (0-100) pg/mL Serum Total Protein 6.9 (6.0-8.3) g/dL Albumin 2.6 L (3.5-5.0) g/dL Globulin 4.3 H (2.4-3.5) g/dL Albumin/Globulin Ratio 0.6 L (1.1-2.2) 04/24/17 04/24/17 Range/Units 20:57 20:57 WBC (4.3-11.1) K/mcL RBC (4.19-5.50) M/mcL Hgb (12.9-16.9) g/dL Hct (37.5-50.1) % MCV (83.0-100.0) fL MCH (28.0-33.3) pg MCHC (31.6-35.5) g/dL RDW (11.5-14.5) % Plt Count (140-400) K/mcL MPV (9.4-12.4) fL Immature Gran % (0-4) % Seg Neutrophils % % Lymphocytes % % Monocytes % % Eosinophils % % Basophils % % Neutrophils # (1.6-8.9) K/mcL Lymphocytes # (0.6-4.6) K/mcL Monocytes # (0.0-1.3) K/mcL Eosinophils # (0.0-0.6) K/mcL Basophils # (0.0-0.2) K/mcL PT (9.4-12.1) Seconds INR Sodium (136-145) mEq/L Potassium (3.5-4.5) mEq/L Chloride (98-109) mEq/L Carbon Dioxide (19-29) mEq/L BUN (8-26) mg/dL Creatinine (0.72-1.25) mg/dL Est GFR ( Amer) (> 60) Est GFR (Non-Af Amer) (> 60) BUN/Creatinine Ratio (6-26) Glucose (70-99) mg/dL Calculated Osmolality (280-300) Calcium (8.6-10.8) mg/dL Total Bilirubin (0.2-1.2) mg/dL Direct Bilirubin (0.0-0.5) mg/dL Indirect Bilirubin (0.0-1.2) mg/dL AST (5-34) Units/L ALT (0-55) Units/L Alkaline Phosphatase (38-126) Units/L Troponin I 0.02 (0-0.03) ng/mL B-Natriuretic Peptide > 5000 H (0-100) pg/mL Serum Total Protein (6.0-8.3) g/dL Albumin (3.5-5.0) g/dL Globulin (2.4-3.5) g/dL Albumin/Globulin Ratio (1.1-2.2) - Radiology Data Radiology results reviewed: Yes I reviewed the patient's radiology results. Chest X-Ray 04/24/17 20:34 IMPRESSION: 1. No acute cardiopulmonary process identified. D/ / David Overton MD / David Overton MD Interpreting Provider: David Overton MD - EKG Data EKG attestation: Yes I reviewed and interpreted this EKG. EKG results narrative: EKG demonstrates sinus rhythm with PACs with a rate of 97 bpm. Extremities evaluation. AL interval 173 QRS duration 100 QTC 415 there is diffuse T-wave flattening. No ST elevations or depressions. No acute ischemic findings. No significant changes from previous EKG dated 11/10/16. Critical Care Time Critical Care Time: Yes Total Critical Care Time: 40 Attestation: Critical care performed: Time is exclusive of separately billable procedures. Time includes: direct patient care, patient reassessment, coordination of patient care, interpretation of data (laboratory data, radiology data, and respiratory data), review of patient's medical records, medical consultation and documentation of patient care. Procedures included in critical care time: Procedures excluded from critical care time: S.B.AKim - S.B.A.RCecily Situation: Demographics, MOA Background: Presenting Complaint, Relevant PMH, Meds, & Allergies Assessment: Vital Signs, Course and respsone to treatment, Exam Concerns, Patient/Family Expectation, Pertinant Lab Results, Outstanding Labs Recommendation: Barrier(s) to disposition, Recommendation based on pending studies, treatments, or consults S.B.A.RCecily Report Given to: Dr. Mayank Boyd Repor Time: 21:54 Attestation Statement - Attestation Attestation: I, Jean Carlos Powers MD, personally evaluated this patient and discussed their management with the resident physician. I reviewed the resident's note and agree with the documented findings, medical decision making, and plan of care. 66-year-old male presents to the emergency department with a complaint of increased shortness of breath. This is been going on for sometime and getting progressively worse. Patient feels this is related to his gallbladder problem. He reports his shortness of breath is worse with eating or drinking. No chest pain. No cough or fever. On examination patient is a cachectic elderly male in no acute distress. He is alert and oriented 3. There is no cyanosis or diaphoresis. Chest is nontender to palpation. Rest sounds are decreased bilaterally with some bibasilar crackles. Heart regular rate and rhythm. Abdomen is soft and nontender with normal bowel sounds. 1+ pedal edema. Labs reviewed. BNP greater than 5000. No acute abnormality on chest x-ray. No acute changes on EKG compared to prior EKG. The hospitalist, Dr. Talley, was consulted and accepted admission of the patient.
[2017-04-24 21:03] LABS: Basophils % 0.7 %; Eosinophils # 0.1 K/mcL (0.0-0.6); Eosinophils % 1.3 %; Hematocrit 42.5 % (37.5-50.1); Hemoglobin 12.9 g/dL (12.9-16.9); Immature Granulocytes % 0.2 % (0-4); Lymphocytes # 2.2 K/mcL (0.6-4.6); Lymphocytes % 38.5 %; Mean Corpuscular HGB Conc 30.4 g/dL (31.6-35.5); Mean Corpuscular Hemoglobin 23.1 pg (28.0-33.3); Mean Corpuscular Volume 76.2 fL (83.0-100.0); Mean Platelet Volume 10.4 fL (9.4-12.4); Monocytes # 0.6 K/mcL (0.0-1.3); Monocytes % 10.2 %; Neutrophils # 2.7 K/mcL (1.6-8.9); Platelet Count 180 K/mcL (140-400); Red Blood Count 5.58 M/mcL (4.19-5.50); Segmented Neutrophils % 49.1 %
[2017-04-24 21:08] LABS: INR 2.5; Prothrombin Time 27.4 Seconds (9.4-12.1)
[2017-04-24 21:19] LABS: Alanine Aminotransferase 10 Units/L (0-55); Albumin 2.6 g/dL (3.5-5.0); Albumin/Globulin Ratio 0.6 (1.1-2.2); Alkaline Phosphatase 114 Units/L (38-126); Aspartate Amino Transferase 25 Units/L (5-34); BUN/Creatinine Ratio 21 (6-26); Bilirubin,Direct 2.7 mg/dL (0.0-0.5); Bilirubin,Indirect 1.5 mg/dL (0.0-1.2); Bilirubin,Total 4.2 mg/dL (0.2-1.2); Blood Urea Nitrogen 26 mg/dL (8-26); Calcium 8.6 mg/dL (8.6-10.8); Carbon Dioxide 23 mEq/L (19-29); Chloride 100 mEq/L (98-109); Globulin 4.3 g/dL (2.4-3.5); Glucose 62 mg/dL (70-99); Osmolality,Calculated 283 (280-300); Potassium 3.8 mEq/L (3.5-4.5); Sodium 135 mEq/L (136-145); Total Protein 6.9 g/dL (6.0-8.3); eGFR For African Americans > 60 (> 60); eGFR For Non-African Americans 60 (> 60)
[2017-04-24] MEDS ORDERED: Furosemide 40 MG/4 ML VIAL IVP ONE (21:31)
[2017-04-24] MEDS ORDERED: Nitroglycerin 0.4 MG TAB.SUBL SL PRN (22:17)
[2017-04-24] MEDS ORDERED: Acetaminophen 325 MG TABLET PO PRN (22:18)
[2017-04-24] MEDS ORDERED: Dextrose Gel 15 GM PO PRN ×2 (22:18)
[2017-04-24] MEDS ORDERED: Ondansetron 4 MG/2 ML VIAL IVP PRN (22:18)
[2017-04-24] MEDS ORDERED: *HR* Dextrose 50 % in Water (Syg) 50 ML SYRINGE IVP PRN (22:18)
[2017-04-24] MEDS ORDERED: *HR* Morphine 2 MG/ML SYRINGE IVP PRN (22:18)
[2017-04-24] MEDS ORDERED: *HR* OxyCODONE Immed Rel 5 MG TABLET PO PRN (22:18)
[2017-04-24] MEDS ORDERED: Naloxone 0.4 MG/ML INJ IVP PRN (22:18)
[2017-04-24] MEDS ORDERED: D5% in Water 1,000 ML IVC PRN (22:18)
--- NOTE | 2017-04-24 22:27 | Internal Med History&Physical ---
Date of Encounter: 04/24/17 Time of Encounter: 22:23 Assessment and Plan (1) CHF exacerbation Current visit: Yes Status: Acute Acute systolic CHF exacerbation with severe respiratory distress and a BNP of more than 5000 Continue Lasix IV twice a day, strict I's and O's, daily weight Consider repeating echocardiogram if worse Patient has refused an AICD in the past he has had a very low ejection fraction Omeprazole for GI prophylaxis and Coumadin for DVT prophylaxis. The patient will be admitted as inpatient, expected stay more than 2 midnights. Full code. Time spent on this admission 40 minutes. High risk for respiratory failure Qualifiers: Congestive heart failure type: systolic Qualified Code(s): I50.23 - Acute on chronic systolic (congestive) heart failure (2) LV (left ventricular) mural thrombus Current visit: No Status: Acute Continue Coumadin (3) Pulmonary embolism Current visit: No Status: Acute Diagnosed back in September 2016 Continue Coumadin Qualifiers: Pulmonary embolism type: other Chronicity: acute Acute cor pulmonale presence: with acute cor pulmonale Qualified Code(s): I26.09 - Other pulmonary embolism with acute cor pulmonale (4) CAD S/P percutaneous coronary angioplasty Current visit: No Status: Chronic Continue aspirin, may resume carvedilol in the morning if more stable (5) Diabetes mellitus Current visit: No Status: Chronic Continue insulin sliding scale only and hold hypoglycemic oral agents as the patient was hypoglycemic Qualifiers: Diabetes mellitus type: type 2 Diabetes mellitus complication status: without complication Diabetes mellitus 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 Saeed is a 66 year old male with a past medical history of systolic CHF, pulmonary emboli and left ventricular thrombus on Coumadin, COPD not oxygen dependent, diabetes type 2 not insulin-dependent came to the emergency room complaining of shortness of breath. Patient is a very poor historian and says that he has been having difficulty breathing for a few days. He has not been able to sleep well and mentions that he has been taking his Lasix regularly although he does not know the dose he has been taking it 3 times a day and is still his legs have become more swollen. His blood pressure is 91/67, his chest x-ray does not show any acute cardiopulmonary pathology but he sounds very congested, his BNP is more than 5000, his legs are extremely edematous. Glucose is 62 INR is 2.5. Feels slightly better after receiving 40 mg of Lasix in the ED. Denies any fevers, no sick contacts, has been having a dry cough. In prior records apparently the patient was oxygen dependent but he says he does not use any oxygen at home. Past Med Surg Social Fam HX - Past Medical History Medical history: CHF (Systolic CHF ejection fraction was 10% and improved to 30- 35%, unclear if he has been refusing an AICD), coronary artery disease (PCI of the LAD and RCA in the past), diabetes (Not insulin-dependent), hyperlipidemia, hypertension, pulmonary embolus (Also left ventricular thrombus on Coumadin), other (Cholelithiasis scheduled to have cholecystectomy with Dr. Hawthorne once he is more stable cardiac-sorenson) Psychiatric history: no psych history - Past Surgical History Surgical History: angioplasty/stent, orthopedic, other (Right elbow and right greater toe surgeries) - Social History Smoking Status: Never smoker Smokeless Tobacco Status: No Alcohol use: none Drug use: none - Family History Mother Living Status: Hx Family Cardiac Disorders: Yes Hx Family Respiratory Disorders: Yes (COPD) - Additional Family History Additional family history: Brother with diabetes and colon cancer, sister and father with diabetes. Mother with valve replacement, CHF and COPD Internal Medicine - H&P: Meds Ascorbic Acid [Vitamin C with Pat Hips] 1,000 mg PO DAILY 11/03/16 [History] Aspirin 81 mg PO DAILY 11/03/16 [History] Furosemide [Lasix] 40 mg PO TID 11/03/16 [History] Glimepiride [Amaryl] 2 mg PO BID 11/03/16 [History] [place]-3/Dha/Epa/Fish Oil [Fish Oil 1,000 mg Softgel] 1,000 mg PO DAILY 11/03/16 [History] Vitamin B Complex 1 tab PO DAILY 11/03/16 [History] Warfarin [Coumadin] 7.5 mg PO TU 11/29/16 [History] Carvedilol 3.125 mg PO BID 12/16/16 [History] Lisinopril 2.5 mg PO DAILY 12/16/16 [History] Warfarin [Coumadin] 3.75 mg PO SUMOWETHFRSA 12/16/16 [History] Allergies No Known Allergies Allergy (Verified 12/16/16 08:09) All Systems PM: A 10-system review of systems was performed and is negative for pertinent findings except as documented above in the HPI. Review of systems: Still short of breath, other systems out of the 10 reviewed were negative - Constitutional Vitals: Temp Pulse Resp BP Pulse Ox 97.5 F L 94 16 99/74 95 04/24/17 20:17 04/24/17 22:01 04/24/17 22:08 04/24/17 22:08 04/24/17 22:01 General appearance: Present: cachectic, A&O X 3 - Head Head exam: Present: atraumatic, normocephalic - Eye Eye exam: Present: PERRL, conjuntiva pink, sclera anicteric Pupils: Present: PERRL - Neck Neck exam general surgery: Present: supple, trachea midline. Absent: lymphadenopathy - Respiratory Respiratory exam: Present: CTAB, rales (Diffuse crackles, no wheezing). Absent : accessory muscle use, rhonchi, wheezes - Cardiovascular Cardiovascular exam: Present: RRR, +S1, +S2. Absent: diastolic murmur, gallop, rubs, systolic murmur - GI/Abdominal GI/Abdominal exam: Present: distended (Distended abdomen, Baum sign is negative but the patient mentioned that he was having tenderness in the past few days in the right upper quadrant), normal bowel sounds, soft, no peritoneal signs. Absent: tenderness - Extremities Exam Extremities exam: Present: pedal edema (+2 pitting edema in both lower extremities), warm, radial pulses palpable and symetrical. Absent: calf tenderness, cyanotic - Neurological Exam Neurological exam: Present: CN II-XII intact, oriented X3, no focal deficits. Absent: pronater drift, facial droop, speech deficit - Skin Skin exam: Present: dry, intact Internal Med - H&P Results - Labs CBC & Chem 7: 04/24/17 20:57 04/24/17 20:57
[2017-04-25 03:47] LABS: Hemoglobin 12.8 g/dL (12.9-16.9); Mean Corpuscular HGB Conc 30.5 g/dL (31.6-35.5); Mean Corpuscular Hemoglobin 23.1 pg (28.0-33.3); Mean Corpuscular Volume 75.8 fL (83.0-100.0); Mean Platelet Volume 10.1 fL (9.4-12.4); Platelet Count 155 K/mcL (140-400); Red Blood Count 5.54 M/mcL (4.19-5.50); Red Cell Distribution Width 22.2 % (11.5-14.5)
[2017-04-25 03:57] LABS: Alanine Aminotransferase 11 Units/L (0-55); Albumin 2.6 g/dL (3.5-5.0); Albumin/Globulin Ratio 0.6 (1.1-2.2); Alkaline Phosphatase 108 Units/L (38-126); Aspartate Amino Transferase 26 Units/L (5-34); BUN/Creatinine Ratio 20 (6-26); Bilirubin,Total 4.2 mg/dL (0.2-1.2); Blood Urea Nitrogen 26 mg/dL (8-26); Calcium 8.5 mg/dL (8.6-10.8); Carbon Dioxide 24 mEq/L (19-29); Chloride 99 mEq/L (98-109); Globulin 4.1 g/dL (2.4-3.5); Glucose 117 mg/dL (70-99); Osmolality,Calculated 284 (280-300); Potassium 3.7 mEq/L (3.5-4.5); Sodium 134 mEq/L (136-145); Total Protein 6.7 g/dL (6.0-8.3); eGFR For African Americans > 60 (> 60); eGFR For Non-African Americans 56 (> 60)
[2017-04-25] MEDS: Ipratropium/Albuterol Neb 3 ML IH SCH ×4 (04:34→22:12)
[2017-04-25] MEDS: Insulin LISPRO 300 UNITS/3 ML VIAL SQ SCH ×3 (07:44→16:07)
[2017-04-25] MEDS ORDERED: Furosemide 40 MG/4 ML VIAL IVP SCH (09:00)
[2017-04-25] MEDS: Aspirin 81 MG TAB.CHEW PO SCH (09:55)
--- NOTE | 2017-04-25 10:01 | Internal Med Progress Note ---
Date of Encounter: 04/25/17 Time of Encounter: 09:30 - Assessment and plan (1) Acute respiratory failure with hypoxia Current Visit: Yes Status: Acute Assessment and plan: Due to heart failure and prior PE. Continue O2 supplementation. We will FiO2 as tolerated. Evaluate for home oxygen prior to discharge. (2) CHF (congestive heart failure) Current Visit: Yes Status: Acute Assessment and plan: Patient with low EF of 10-15% per 2-D echocardiogram done within the past 6 months. Continue IV Lasix. Clinically feeling better. Monitor urine output. Daily weights. Fluid restriction. High-risk for complications due to use of IV diuretics with underlying chronic heart failure Qualifiers: Congestive heart failure type: combined Congestive heart failure chronicity : acute on chronic Qualified Code(s): I50.43 - Acute on chronic combined systolic (congestive) and diastolic (congestive) heart failure (3) CAD S/P percutaneous coronary angioplasty Current Visit: No Status: Chronic Assessment and plan: continue aspirin, beta amelia and lisinopril. (4) Diabetes mellitus Current Visit: Yes Status: Chronic Assessment and plan: Hypoglycemia is resolved. Patient started on low-dose corrective insulin sliding scale regimen. Monitor blood sugars closely. Qualifiers: Diabetes mellitus type: type 2 Diabetes mellitus complication status: with hypoglycemia Diabetes mellitus complication detail: without coma Diabetes mellitus senior living insulin use: without senior living use Qualified Code(s): E11.649 - Type 2 diabetes mellitus with hypoglycemia without coma (5) HTN (hypertension) Current Visit: Yes Status: Chronic Assessment and plan: Blood pressure is well controlled. Qualifiers: Hypertension type: essential hypertension Qualified Code(s): I10 - Essential (primary) hypertension (6) Hyperbilirubinemia Current Visit: Yes Status: Chronic Assessment and plan: Patient has chronic hyperbilirubinemia. Liver ultrasound shows chronic gallbladder wall thickening without any acute cholecystitis. Gallstones present. Recommend outpatient evaluation for cholecystectomy. (7) LV (left ventricular) mural thrombus Current Visit: Yes Status: Chronic Assessment and plan: Continue anticoagulation with Coumadin (8) Pulmonary embolism Current Visit: Yes Status: Chronic Assessment and plan: Continue anticoagulation with Coumadin. INR therapeutic Qualifiers: Pulmonary embolism type: other Chronicity: acute Acute cor pulmonale presence: with acute cor pulmonale Qualified Code(s): I26.09 - Other pulmonary embolism with acute cor pulmonale - Subjective Interval history: Patient is feeling better today. Breathing is improving. Responding well to Lasix. Blood sugars are much better. Denies any chest pain. No palpitations. Is concerned about his gallbladder disease. Requesting referral to surgery for cholecystectomy as outpatient. Denies any abdominal pain at this time. - Constitutional Vitals: Temp Pulse Resp BP Pulse Ox 97.4 F L 93 16 106/79 94 04/25/17 07:05 04/25/17 07:05 04/25/17 07:05 04/25/17 07:05 04/25/17 07:05 General appearance: Present: cachectic, cooperative, A&O X 3, answers questions appropriately - Eye Eye exam: Present: EOMI, PERRL, scleral icterus, conjuntiva pink, sclera anicteric - Neck Neck exam general surgery: Present: supple, trachea midline. Absent: lymphadenopathy - Respiratory Respiratory exam: Present: prolonged expiratory phase, wheezes. Absent: accessory muscle use, rales, rhonchi Additional comments: Basal crackles - Cardiovascular Cardiovascular exam: Present: RRR, +S1, +S2. Absent: diastolic murmur, gallop, rubs, systolic murmur - GI/Abdominal GI/Abdominal exam: Present: distended, normal bowel sounds, soft, no peritoneal signs. Absent: tenderness - Extremities Exam Extremities exam: Present: pedal edema (2+ pitting pedal edema), warm, radial pulses palpable and symetrical. Absent: calf tenderness, cyanotic - Neurological Exam Neurological exam: Present: alert, oriented X3, no focal deficits, strengths equal and symetr throughout. Absent: facial droop, speech deficit - Skin Skin exam: Present: dry, intact Additional comments: Jaundice Internal Medicine: Result - Labs CBC & Chem 7: 04/25/17 03:01 04/25/17 03:01 Labs: Short CBC 04/25/17 Range/Units 03:01 WBC 4.9 (4.3-11.1) K/mcL Hgb 12.8 L (12.9-16.9) g/dL Hct 42.0 (37.5-50.1) % Plt Count 155 (140-400) K/mcL BMP 04/25/17 03:01 Sodium 134 L Potassium 3.7 Chloride 99 Carbon Dioxide 24 BUN 26 Creatinine 1.28 H Glucose 117 H Calcium 8.5 L Liver Function 04/25/17 Range/Units 03:01 Total Bilirubin 4.2 H (0.2-1.2) mg/dL AST 26 (5-34) Units/L ALT 11 (0-55) Units/L Alkaline Phosphatase 108 (38-126) Units/L Albumin 2.6 L (3.5-5.0) g/dL - ABG Interpretation ABG results: PT/INR, D-dimer PT 27.4 Seconds (9.4-12.1) H 04/24/17 20:57 - Impressions Impressions Liver Ultrasound 04/25/17 08:00 IMPRESSION: Moderate amount of abdominal ascites significantly increased since prior examination. Stable cholelithiasis gallbladder wall thickening with negative sonographic Baum's sign. Gallbladder wall thickening may be related to the abdominal ascites. D/ / Ralf Morrell MD / Ralf Morrell MD Interpreting Provider: Ralf Morrell MD Consult Discharge Plan - Plan Additional Instructions: Referral to Dr. Hawthorne for Cholelithiasis Referrals: Osiris Rome MD [Primary Care Provider] - - Attending Attestation This document has been at least partially created by [employer] recognition technology by Dr. Tellez. Errors in grammar, wording or other phrases may exist. If errors are found after the documentation is signed, they will be addressed individually in the addendum section of this document when appropriate.
[2017-04-25 11:06] LABS: Prothrombin Time 32.9 Seconds (9.4-12.1)
[2017-04-25] MEDS ORDERED: *HR* OxyCODONE Immed Rel 5 MG TABLET PO PRN (11:37)
[2017-04-25] MEDS: Furosemide 40 MG/4 ML VIAL IVP SCH (15:58)
--- NOTE | 2017-04-25 16:34 | Electrocardiograph Report ---
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
[2017-04-25] MEDS ORDERED: Warfarin perPT PO PRN (18:00)
[2017-04-25] MEDS ORDERED: *HR* Warfarin 7.5 MG TABLET PO SCH ×2 (18:00)
[2017-04-26] MEDS: Ipratropium/Albuterol Neb 3 ML IH SCH ×2 (03:40→10:30)
[2017-04-26 07:53] LABS: INR 2.8; Prothrombin Time 31.7 Seconds (9.4-12.1)
[2017-04-26] MEDS: Insulin LISPRO 300 UNITS/3 ML VIAL SQ SCH (07:57)
[2017-04-26] MEDS: Aspirin 81 MG TAB.CHEW PO SCH (07:59)
[2017-04-26] MEDS: Furosemide 40 MG/4 ML VIAL IVP SCH (08:02)
[2017-04-26 11:36] VITALS: BP 91/74
[2017-04-26 11:40] LABS: BUN/Creatinine Ratio 24 (6-26); Blood Urea Nitrogen 29 mg/dL (8-26); Calcium 8.6 mg/dL (8.6-10.8); Carbon Dioxide 23 mEq/L (19-29); Chloride 100 mEq/L (98-109); Glucose 100 mg/dL (70-99); Osmolality,Calculated 284 (280-300); Potassium 3.9 mEq/L (3.5-4.5); Sodium 134 mEq/L (136-145); eGFR For African Americans > 60 (> 60); eGFR For Non-African Americans > 60 (> 60)
[2017-04-26] MEDS ORDERED: Aminoglycoside Consult 1 EACH MC ONE (12:12)
--- NOTE | 2017-04-26 13:44 | Discharge Summary ---
Date of Encounter: 04/26/17 Time of Encounter: 11:45 - Discharge Diagnosis (1) Acute respiratory failure with hypoxia Priority: Primary Status: Acute (2) CHF exacerbation Priority: Primary Status: Acute Qualifiers: Congestive heart failure type: systolic Qualified Code(s): I50.23 - Acute on chronic systolic (congestive) heart failure (3) Pulmonary embolism Priority: Secondary Status: Chronic Qualifiers: Pulmonary embolism type: other Chronicity: chronic Acute cor pulmonale presence: with acute cor pulmonale Qualified Code(s): I27.82 - Chronic pulmonary embolism; I26.09 - Other pulmonary embolism with acute cor pulmonale (4) CAD S/P percutaneous coronary angioplasty Priority: Secondary Status: Chronic (5) CHF (congestive heart failure) Priority: Secondary Status: Chronic Qualifiers: Congestive heart failure type: systolic Congestive heart failure chronicity : acute on chronic Qualified Code(s): I50.23 - Acute on chronic systolic ( congestive) heart failure (6) Diabetes mellitus Priority: Secondary Status: Chronic Qualifiers: Diabetes mellitus type: type 2 Diabetes mellitus complication status: with hypoglycemia Diabetes mellitus complication detail: without coma Diabetes mellitus correction insulin use: without insurance assistant use Qualified Code(s): E11.649 - Type 2 diabetes mellitus with hypoglycemia without coma (7) HTN (hypertension) Priority: Secondary Status: Chronic Qualifiers: Hypertension type: essential hypertension Qualified Code(s): I10 - Essential (primary) hypertension (8) LV (left ventricular) mural thrombus Priority: Secondary Status: Chronic - Discharge Medications Home Medications: Ascorbic Acid [Vitamin C with Pat Hips] 1,000 mg PO DAILY 11/03/16 [History] Aspirin 81 mg PO DAILY 11/03/16 [History] Furosemide [Lasix] 40 mg PO TID 11/03/16 [History] Glimepiride [Amaryl] 2 mg PO BID 11/03/16 [History] [place]-3/Dha/Epa/Fish Oil [Fish Oil 1,000 mg Softgel] 1,000 mg PO DAILY 11/03/16 [History] Vitamin B Complex 1 tab PO DAILY 11/03/16 [History] Warfarin [Coumadin] 3.75 mg PO WESA 12/16/16 [History] Gabapentin [Neurontin] 400 mg PO HS 04/26/17 [History] Metoprolol [Lopressor] 12.5 mg PO BID 04/26/17 [History] Allergies/Adverse Reactions: Allergies No Known Allergies Allergy (Verified 12/16/16 08:09) Date of admission: 04/25/17 02:35 Primary care physician: Osiris Rome MD Consults: 04/25/17 16:26 Consult to Wound Care [CONS] Routine Reason for Consult: Patient has wound on right foot and left great toe. Time Notified: 16:30 Call Completed: No Discharging clinician: Cris Flores Anticipated date of discharge: 04/26/17 - Patient Status Disposition: Left Against Medical Advice Condition: Fair Functional capacity at discharge: independent ambulation Overall status at discharge: patient is not back to baseline - Discharge Instructions Follow Up With: Osiris Rome MD [Primary Care Provider] - Additional Instructions: Referral to Dr. Hawthorne for Cholelithiasis Hospital course: Mr. Saeed is a 66 year old male with the above medical problems who was admitted with worsening shortness of breath, leg swelling and abdominal distention. He was noted to be in acute exacerbation of CHF and started on IV Lasix along with fluid restriction. He was noted to have ascites and gallstones , without cholecystitis on abdominal ultrasound for which he needs outpatient surgery follow-up. He also declined paracentesis. I have seen patient today. His urine output has not been documented accurately on [employer] as patient was noted to be discarding urine without informing his RN. Patient is also noted to be requiring supplemental oxygen even on minimal exertion. He would benefit from further stay in the hospital for IV diuresis, supplemental oxygen and medication management prior to discharge. He has been explained about this but he is adamant about leaving and is willing to sign out AGAINST MEDICAL ADVICE. He is being escorted by his family. - Time Spent with Patient Total time spent providing and/or coordinating discharge services: - Constitutional Vitals: Temp Pulse Resp BP Pulse Ox 97.6 F 71 18 91/74 97 04/26/17 11:00 04/26/17 11:00 04/26/17 11:00 04/26/17 11:00 04/26/17 11:00 General appearance: Present: A&O X 3, answers questions appropriately
[2017-04-26] MEDS ORDERED: *HR* Warfarin 2 MG TABLET PO ONE (18:00)
[2017-04-26] MEDS ORDERED: *HR* Warfarin 7.5 MG TABLET PO SCH (18:00)
[2017-04-26] MEDS ORDERED: Insulin LISPRO 300 UNITS/3 ML VIAL SQ SCH (21:00)
== END 2017-04-26 12:13 | disposition left against medical advice (07) | DRG 291 ==
LOC: EMEROO 20:16 → 2ANU 20:16 → SUATTDRO 04-25 02:35
PROVIDERS: ADMIT Internal Medicine; ATTEND Internal Medicine

== ENCOUNTER 2017-05-04 20:19 | Inpatient (IN) ==
[2017-05-04] MEDS ORDERED: Furosemide 40 MG/4 ML VIAL IVP ONE (20:34)
[2017-05-04 20:54] LABS: ABG Base Excess 1.6 mEq/L (-2.0 to 3.0); ABG HCO3 24.4 mEQ/L (21-27); ABG Oxygen Saturation 98 % (95-98); ABG PCO2 32 mmHg (35-45); ABG PH 7.49 pH Units (7.32-7.45); ABG PO2 90 mmHg (85-104); ABG TCO2 25.4 mEq/L (20-26)
[2017-05-04 20:55] LABS: Blood Gas FiO2 21 %
[2017-05-04 21:28] LABS: Basophils % 0.4 %; Eosinophils # 0.1 K/mcL (0.0-0.6); Eosinophils % 1.1 %; Hemoglobin 12.1 g/dL (12.9-16.9); Immature Granulocytes % 0.4 % (0-4); Immature Platelets 6.2 % (1.1-6.1); Lymphocytes % 34.9 %; Mean Corpuscular Hemoglobin 23.4 pg (28.0-33.3); Mean Corpuscular Volume 75.6 fL (83.0-100.0); Mean Platelet Volume 9.8 fL (9.4-12.4); Monocytes # 0.7 K/mcL (0.0-1.3); Monocytes % 11.4 %; Platelet Count 152 K/mcL (140-400); Red Blood Count 5.16 M/mcL (4.19-5.50); Red Cell Distribution Width 22.4 % (11.5-14.5); Segmented Neutrophils % 51.8 %
[2017-05-04 21:41] LABS: BUN/Creatinine Ratio 24 (6-26); Blood Urea Nitrogen 25 mg/dL (8-26); Calcium 8.4 mg/dL (8.6-10.8); Carbon Dioxide 22 mEq/L (19-29); Chloride 101 mEq/L (98-109); Glucose 48 mg/dL (70-99); Osmolality,Calculated 280 (280-300); Potassium 3.8 mEq/L (3.5-4.5); Sodium 134 mEq/L (136-145); eGFR For African Americans > 60 (> 60); eGFR For Non-African Americans > 60 (> 60)
--- NOTE | 2017-05-04 21:50 | Emergency Department Note ---
Disposition Clinical Impression: Hypoglycemia CHF (congestive heart failure) Qualifiers: Congestive heart failure type: systolic Congestive heart failure chronicity: acute on chronic Qualified Code(s): I50.23 - Acute on chronic systolic ( congestive) heart failure Acute exacerbation of CHF (congestive heart failure) Qualifiers: Congestive heart failure type: combined Qualified Code(s): I50.43 - Acute on chronic combined systolic (congestive) and diastolic (congestive) heart failure Disposition: Admitted As Inpatient Condition: Fair SOB HPI - General Chief Complaint: ED Shortness of Breath/Dyspnea Stated Complaint: ASUNCION Time Seen by Provider: 05/04/17 20:25 Source: patient, EMS Limitations: no limitations Nursing Notes Reviewed: Yes Vital Signs Reviewed: Yes - History of Present Illness 66-year-old male with shortness of breath for the last several days. Patient was discharged on the for CHF exacerbation. Previous EF showed 10-15% ejection fraction. Patient is living at home, he declined transfer to a long term facility at the time of discharge from the hospital. He states that despite diuretic therapy he has been getting progressively short of breath. he reports generalized weakness. Denies chest pain, fever or chills or nausea vomiting diarrhea constipation. Pt Subjective Complaint: shortness of breath Onset (ago): day(s) Severity: none Improves with: oxygen Worsens with: nothing Associated symptoms: Reports: denies other symptoms. Denies: chest pain, pain with inspiration, fever - Related Data Home Medications Medication Instructions Recorded Confirmed Ascorbic Acid [Vitamin C with Pat 1,000 mg PO DAILY 11/03/16 04/26/17 Hips] Aspirin 81 mg PO DAILY 11/03/16 04/26/17 Furosemide [Lasix] 40 mg PO TID 11/03/16 04/26/17 Glimepiride [Amaryl] 2 mg PO BID 11/03/16 04/26/17 [place]-3/Dha/Epa/Fish Oil [Fish Oil 1,000 mg PO DAILY 11/03/16 04/26/17 1,000 mg Softgel] Vitamin B Complex 1 tab PO DAILY 11/03/16 04/26/17 Warfarin [Coumadin] 3.75 mg PO WESA 12/16/16 04/26/17 Gabapentin [Neurontin] 400 mg PO HS 04/26/17 04/26/17 Metoprolol [Lopressor] 12.5 mg PO BID 04/26/17 04/26/17 Allergies Allergy/AdvReac Type Severity Reaction Status Date / Time No Known Allergies Allergy Verified 12/16/16 08:09 All systems ED: reviewed and negative except as stated. Constitutional: Reports: as per HPI. Denies: fever, chills Eyes: Denies: eye pain, eye discharge Cardiovascular: Reports: as per HPI, dyspnea on exertion. Denies: chest pain Respiratory: Reports: as per HPI, cough, dyspnea Gastrointestinal: Reports: as per HPI, nausea. Denies: abdominal pain Genitourinary: Denies: urgency, dysuria Musculoskeletal: Denies: back pain, neck pain Integumentary: Denies: rash, nipple discharge Neurological: Denies: headache, weakness Past Medical History - Past Medical History Medical history: Reports: CHF, coronary artery disease, diabetes, hyperlipidemia , hypertension, pulmonary embolus Surgical history: Reports: angioplasty/stent, orthopedic, other Psychiatric history: Reports: no psych history - Social History Smoking Status: Never smoker Smokeless Tobacco Status: No Alcohol use: Reports: none Drug use: Reports: none Physical Exam Constitutional: very fagan, has distended neck veins, mildly hypoxic, short of breath, Neck: normal inspection, neck is supple, trachea midline Resp: bilateral rales appreciated at the bases CV: RRR, no m/g/r distended neck veins bilaterally GI: normal inspection, Soft, NTND, BS present Back: normal inspection, no tenderness to palpation Neuro: A&O3, no gross motor or sensory deficits bilaterally MSK: normal inspection, bilateral UE and LE with normal ROM Skin: No rashes, skin warm, dry, intact - General Limitations: no limitations General appearance: alert, in no apparent distress Course Course Narrative: 66-year-old male with history of CHF exacerbation, last week, negative for the same thing, presents with similar symptoms short of breath, we have chest x-ray basic lab work, he did have an EF of 15-10%. Suspect CHF exacerbation we will diuresis with 40 IV Lasix - Reevaluation(s) Reevaluation #1: To medicine service Dr. Restrepo in stable condition, satting 98% on 2 L nasal cannula. BNP greater than 5000, chest x-ray shows effusions. Vital Signs Temperature 98.1 F 05/04/17 20:24 Pulse Rate 98 05/04/17 20:24 Respiratory Rate 16 05/04/17 20:24 Blood Pressure 108/75 05/04/17 20:24 O2 Sat by Pulse Oximetry 100 05/04/17 20:24 Temperature 98.1 F 05/04/17 20:24 Pulse Rate 90 05/04/17 22:57 Respiratory Rate 16 05/05/17 00:07 Blood Pressure 98/85 05/05/17 00:07 O2 Sat by Pulse Oximetry 100 05/04/17 22:57 Oxygen Delivery Oxygen Delivery Room Air Shortness of Breath/Dyspnea - Differential Diagnosis Likely: acute exacerbation of chronic obstructive airways disease, congestive heart failure, pulmonary embolism - Medical Records Medical records reviewed: Yes I reviewed the patient's medical records. - Lab Data Lab results reviewed: Yes I reviewed the patient's lab results. Result diagrams: 05/04/17 21:16 05/04/17 21:16 Lab Results 05/04/17 05/04/17 05/04/17 Range/Units 20:44 21:16 21:16 WBC 5.7 (4.3-11.1) K/mcL RBC 5.16 (4.19-5.50) M/mcL Hgb 12.1 L (12.9-16.9) g/dL Hct 39.0 (37.5-50.1) % MCV 75.6 L (83.0-100.0) fL MCH 23.4 L (28.0-33.3) pg MCHC 31.0 L (31.6-35.5) g/dL RDW 22.4 H (11.5-14.5) % Plt Count 152 (140-400) K/mcL MPV 9.8 (9.4-12.4) fL Immature Gran % 0.4 (0-4) % Seg Neutrophils % 51.8 % Lymphocytes % 34.9 % Monocytes % 11.4 % Eosinophils % 1.1 % Basophils % 0.4 % Neutrophils # 3.0 (1.6-8.9) K/mcL Lymphocytes # 2.0 (0.6-4.6) K/mcL Monocytes # 0.7 (0.0-1.3) K/mcL Eosinophils # 0.1 (0.0-0.6) K/mcL Basophils # 0.0 (0.0-0.2) K/mcL Immature Plt Fraction 6.2 H (1.1-6.1) % ABG pH 7.49 H (7.32-7.45) pH Units ABG pCO2 32 L (35-45) mmHg ABG pO2 90 (85-104) mmHg ABG HCO3 24.4 (21-27) mEQ/L ABG Total CO2 25.4 (20-26) mEq/L ABG O2 Saturation 98 (95-98) % ABG Base Excess 1.6 (-2.0 to 3.0) mEq/L Blood Gas Modality RA Inspired O2 21 % Sodium 134 L (136-145) mEq/L Potassium 3.8 (3.5-4.5) mEq/L Chloride 101 (98-109) mEq/L Carbon Dioxide 22 (19-29) mEq/L BUN 25 (8-26) mg/dL Creatinine 1.04 (0.72-1.25) mg/dL Est GFR ( Amer) > 60 (> 60) Est GFR (Non-Af Amer) > 60 (> 60) BUN/Creatinine Ratio 24 (6-26) Glucose 48 L (70-99) mg/dL Calculated Osmolality 280 (280-300) Lactic Acid (0.5-2.2) mmol/L Calcium 8.4 L (8.6-10.8) mg/dL Troponin I (0-0.03) ng/mL B-Natriuretic Peptide (0-100) pg/mL 05/04/17 05/04/17 05/04/17 Range/Units 21:16 21:16 21:16 WBC (4.3-11.1) K/mcL RBC (4.19-5.50) M/mcL Hgb (12.9-16.9) g/dL Hct (37.5-50.1) % MCV (83.0-100.0) fL MCH (28.0-33.3) pg MCHC (31.6-35.5) g/dL RDW (11.5-14.5) % Plt Count (140-400) K/mcL MPV (9.4-12.4) fL Immature Gran % (0-4) % Seg Neutrophils % % Lymphocytes % % Monocytes % % Eosinophils % % Basophils % % Neutrophils # (1.6-8.9) K/mcL Lymphocytes # (0.6-4.6) K/mcL Monocytes # (0.0-1.3) K/mcL Eosinophils # (0.0-0.6) K/mcL Basophils # (0.0-0.2) K/mcL Immature Plt Fraction (1.1-6.1) % ABG pH (7.32-7.45) pH Units ABG pCO2 (35-45) mmHg ABG pO2 (85-104) mmHg ABG HCO3 (21-27) mEQ/L ABG Total CO2 (20-26) mEq/L ABG O2 Saturation (95-98) % ABG Base Excess (-2.0 to 3.0) mEq/L Blood Gas Modality Inspired O2 % Sodium (136-145) mEq/L Potassium (3.5-4.5) mEq/L Chloride (98-109) mEq/L Carbon Dioxide (19-29) mEq/L BUN (8-26) mg/dL Creatinine (0.72-1.25) mg/dL Est GFR ( Amer) (> 60) Est GFR (Non-Af Amer) (> 60) BUN/Creatinine Ratio (6-26) Glucose (70-99) mg/dL Calculated Osmolality (280-300) Lactic Acid 2.3 H (0.5-2.2) mmol/L Calcium (8.6-10.8) mg/dL Troponin I 0.01 (0-0.03) ng/mL B-Natriuretic Peptide > 5000 H (0-100) pg/mL 05/04/17 Range/Units 22:51 WBC (4.3-11.1) K/mcL RBC (4.19-5.50) M/mcL Hgb (12.9-16.9) g/dL Hct (37.5-50.1) % MCV (83.0-100.0) fL MCH (28.0-33.3) pg MCHC (31.6-35.5) g/dL RDW (11.5-14.5) % Plt Count (140-400) K/mcL MPV (9.4-12.4) fL Immature Gran % (0-4) % Seg Neutrophils % % Lymphocytes % % Monocytes % % Eosinophils % % Basophils % % Neutrophils # (1.6-8.9) K/mcL Lymphocytes # (0.6-4.6) K/mcL Monocytes # (0.0-1.3) K/mcL Eosinophils # (0.0-0.6) K/mcL Basophils # (0.0-0.2) K/mcL Immature Plt Fraction (1.1-6.1) % ABG pH (7.32-7.45) pH Units ABG pCO2 (35-45) mmHg ABG pO2 (85-104) mmHg ABG HCO3 (21-27) mEQ/L ABG Total CO2 (20-26) mEq/L ABG O2 Saturation (95-98) % ABG Base Excess (-2.0 to 3.0) mEq/L Blood Gas Modality Inspired O2 % Sodium (136-145) mEq/L Potassium (3.5-4.5) mEq/L Chloride (98-109) mEq/L Carbon Dioxide (19-29) mEq/L BUN (8-26) mg/dL Creatinine (0.72-1.25) mg/dL Est GFR ( Amer) (> 60) Est GFR (Non-Af Amer) (> 60) BUN/Creatinine Ratio (6-26) Glucose (70-99) mg/dL Calculated Osmolality (280-300) Lactic Acid 2.3 H (0.5-2.2) mmol/L Calcium (8.6-10.8) mg/dL Troponin I (0-0.03) ng/mL B-Natriuretic Peptide (0-100) pg/mL - Radiology Data Radiology results reviewed: Yes I reviewed the patient's radiology results. Chest X-Ray 05/04/17 20:34 IMPRESSION: Left retrocardiac basilar increased density which may represent sequela of low volumes and the heart size, however focal consolidation in the left retrocardiac region would be difficult to exclude. Scattered prominent markings bilaterally is likely due to atelectasis. D/ / Chris Galeas / Chris Galeas Interpreting Provider: Chris Galeas - EKG Data EKG attestation: Yes I reviewed and interpreted this EKG. EKG shows normal: Reports: sinus rhythm (95 bpm [place] 166 QRS 109 QTC 423 low voltage, no ST segment elevations or depressions unchanged from previous EKG in April) Attestation Statement - Attestation Attestation: I, Jean Carlos Powers MD, personally evaluated this patient and discussed their management with the resident physician. I reviewed the resident's note and agree with the documented findings, medical decision making, and plan of care. 66-year-old male presents to the emergency department with a complaint of increased shortness of breath. He can has history of CHF and was just discharged from the hospital 8 days ago for exacerbation of CHF. He states this is the same as his usual flareups. He lives at home with his brother and states he would like to go to a care home for rehabilitation. He denies any chest pain. On examination patient is a well-developed thin elderly male in no acute distress. He is alert and oriented 3. There is no cyanosis or diaphoresis. Marked JVD. Chest nontender to palpation. Breath sounds decreased bilaterally with a few dependent rales. No wheezes noted. Heart regular rate and rhythm. Abdomen soft and nontender with normal bowel sounds. 2+ pedal edema. Chest x-ray shows cardiomegaly, cannot rule out retrocardiac consolidation. No acute changes on EKG. Labs reviewed. BNP greater than 5000. The hospitalist, Dr. Caba, was consulted and accepted admission of the patient.
--- NOTE | 2017-05-04 23:47 | Internal Med History&Physical ---
Date of Encounter: 05/05/17 Time of Encounter: 23:40 Assessment and Plan (1) Acute exacerbation of CHF (congestive heart failure) Current visit: Yes Status: Acute Multiple admissions for exacerbation Acute on chronic CHF exacerbation systolic dysfunction with LVEF of 10-15%, history of LV mural thrombus Continue IV Lasix, metoprolol and aspirin Strict I's and O's and daily weight Cardiac laboratory monitor O2 via nasal cannula, BiPAP if needed, EKG in a.m. 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 Qualified Code(s): E11.649 - Type 2 diabetes mellitus with hypoglycemia without coma (4) HTN (hypertension) Current visit: No Status: Chronic Essential hypertension - controlled, continue home medications, monitor Qualifiers: Hypertension type: essential hypertension Qualified Code(s): I10 - Essential (primary) hypertension (5) Pulmonary embolism Current visit: No Status: Chronic Chronic, on anticoagulation with Coumadin Monitor INR and PT Qualifiers: Pulmonary embolism type: other Chronicity: chronic Acute cor pulmonale presence: with acute cor pulmonale Qualified Code(s): I27.82 - Chronic pulmonary embolism; I26.09 - Other pulmonary embolism with acute cor pulmonale (6) Hyperbilirubinemia Current visit: No Status: Chronic Chronic hyperbilirubinemia, recent ultrasound revealed gallbladder wall thickening and ascites. Internal Medicine - H&P: HPI Admitted From: Emergency Dept Plans for Post Hospital Care: Transfer Senior Living Facility History of present illness: Mr. Saeed is a 66 year old male with past medical history of hypertension, diabetes, elevated thrombus, PE on Coumadin, CHF systolic dysfunction and cardiomyopathy. He presents to the ED with complaints of shortness of breath. Patient states symptoms started about 1-2 days ago and symptoms are gradually worsening. He states he usually has flareups. Worse with exertion. No alleviating factors. No other associated symptoms. Patient was recently discharged from the hospital after being treated for CHF exacerbation. On examination patient is awake and alert. Not in any acute distress. Patient denies chest pain. No palpitations no headaches or dizziness. No nausea or vomiting. Initially the workup revealed BNP peptide greater than 5000 and a negative troponin. EKG shows sinus rhythm. Patient is able to provide all history. No family members at bedside. Patient will need to be continued on IV Lasix and he will need to be on strict I's and O's and daily weights. We will continue all his home medications including aspirin and beta amelia. He will be on O2 via nasal cannula. Continue home dose of Coumadin. He does have chronic hyperbilirubinemia and a recent liver ultrasound shows chronic gallbladder wall thickening without any acute cholecystitis. Patient on previous admission left AGAINST MEDICAL ADVICE. Patient has been explained that his condition and plan of care. He understood and agreed. No unanswered questions. Past Med Surg Social Fam HX - Past Medical History Medical history: CHF, coronary artery disease, diabetes, hyperlipidemia, hypertension, pulmonary embolus Psychiatric history: no psych history - Past Surgical History Surgical History: angioplasty/stent, orthopedic, other - Social History Smoking Status: Never smoker Smokeless Tobacco Status: No Alcohol use: none Drug use: none - Family History Mother Adopted: No Family Member Ethnicity: Non- Living Status: Hx Family Cardiac Disorders: Yes Hx Family Respiratory Disorders: Yes Hx Family Cancer: No Hx Family GI Disorders: No Hx Family Endocrine Disorder: No Hx Family Neuromuscular Disorders: No Hx Family Neurologic Disorders: No Internal Medicine - H&P: Meds Ascorbic Acid [Vitamin C with Pat Hips] 1,000 mg PO DAILY 11/03/16 [History] Aspirin 81 mg PO DAILY 11/03/16 [History] Furosemide [Lasix] 40 mg PO TID 11/03/16 [History] Glimepiride [Amaryl] 2 mg PO BID 11/03/16 [History] [place]-3/Dha/Epa/Fish Oil [Fish Oil 1,000 mg Softgel] 1,000 mg PO DAILY 11/03/16 [History] Vitamin B Complex 1 tab PO DAILY 11/03/16 [History] Warfarin [Coumadin] 3.75 mg PO WESA 12/16/16 [History] Gabapentin [Neurontin] 400 mg PO HS 04/26/17 [History] Metoprolol [Lopressor] 12.5 mg PO BID 04/26/17 [History] Allergies No Known Allergies Allergy (Verified 12/16/16 08:09) All Systems PM: A 10-system review of systems was performed and is negative for pertinent findings except as documented above in the HPI. - Constitutional Constitutional: as per HPI, fatigue, weakness - EENT Eyes: no loss of vision - Cardiovascular Cardiovascular ROS IM: dyspnea, dyspnea on exertion, orthopnea, no chest pain, no lightheadedness - Respiratory Respiratory: cough, dyspnea, dyspnea on exertion, no chest congestion - Gastrointestinal Gastrointestinal: no abdominal pain, no bloating, no diarrhea, no nausea - Neurological Neurological ROS: no abnormal gait, no abnormal speech, no dizziness, no focal weakness, no loss of vision - Constitutional Vitals: Temp Pulse Resp BP Pulse Ox 98.1 F 90 14 97/77 100 05/04/17 20:24 05/04/17 22:57 05/04/17 22:57 05/04/17 22:57 05/04/17 22:57 General appearance: Present: A&O X 3, no acute distress, underweight, answers questions appropriately Exam: Generalized weakness, chronically ill appearing - Head Head exam: Present: atraumatic - Neck Neck exam general surgery: Present: supple - Respiratory Respiratory exam: Present: decreased breath sounds (Bilaterally with mild rales in bases), rales. Absent: wheezes - Cardiovascular Cardiovascular exam: Present: +S1, +S2, systolic murmur, tachycardia - GI/Abdominal GI/Abdominal exam: Present: distended (Mild), soft. Absent: guarding, tenderness - Extremities Exam Extremities exam: Present: pedal edema (Bilateral lower leg edema pitting 4+), radial pulses palpable and symetrical. Absent: cyanotic - Neurological Exam Neurological exam: Present: alert, oriented X3, no focal deficits Internal Med - H&P Results - Labs CBC & Chem 7: 05/04/17 21:16 05/04/17 21:16
[2017-05-04] MEDS ORDERED: *HR* Dextrose 50 % in Water (Syg) 50 ML SYRINGE IVP ONE (23:58)
[2017-05-05] MEDS ORDERED: *HR* Dextrose 50 % in Water (Syg) 50 ML SYRINGE ONE (00:02)
[2017-05-05] MEDS ORDERED: Naloxone 0.4 MG/ML INJ IVP PRN (01:27)
[2017-05-05] MEDS ORDERED: Ondansetron 4 MG/2 ML VIAL IVP PRN (01:27)
[2017-05-05] MEDS ORDERED: Acetaminophen 325 MG TABLET PO PRN (01:27)
[2017-05-05 06:15] LABS: INR 3.3; Prothrombin Time 36.5 Seconds (9.4-12.1)
[2017-05-05 06:16] LABS: Hemoglobin 12.6 g/dL (12.9-16.9)
[2017-05-05 06:18] LABS: Hematocrit 41.5 % (37.5-50.1); Immature Platelets 8.2 % (1.1-6.1); Mean Corpuscular HGB Conc 30.4 g/dL (31.6-35.5); Mean Corpuscular Hemoglobin 23.2 pg (28.0-33.3); Mean Corpuscular Volume 76.6 fL (83.0-100.0); Platelet Count 109 K/mcL (140-400); Red Blood Count 5.42 M/mcL (4.19-5.50); Red Cell Distribution Width 23.1 % (11.5-14.5)
[2017-05-05 06:34] LABS: BUN/Creatinine Ratio 26 (6-26); Blood Urea Nitrogen 25 mg/dL (8-26); Calcium 7.8 mg/dL (8.6-10.8); Carbon Dioxide 22 mEq/L (19-29); Chloride 100 mEq/L (98-109); Glucose 49 mg/dL (70-99); Magnesium 1.6 mg/dL (1.6-2.6); Osmolality,Calculated 280 (280-300); Potassium 3.8 mEq/L (3.5-4.5); Sodium 134 mEq/L (136-145); eGFR For African Americans > 60 (> 60); eGFR For Non-African Americans > 60 (> 60)
[2017-05-05] MEDS ORDERED: Furosemide 40 MG/4 ML VIAL IVP SCH (09:00)
[2017-05-05] MEDS ORDERED: (Omega-3/Dha/Epa/Fish Oil [Fish Oil 1,000 Mg Softgel) PO SCH (09:00)
[2017-05-05] MEDS ORDERED: Famotidine 20 MG TABLET PO SCH (09:00)
[2017-05-05] MEDS: Ascorbic Acid 500 MG TABLET PO SCH (09:41)
[2017-05-05] MEDS: Aspirin 81 MG TAB.CHEW PO SCH (09:41)
[2017-05-05] MEDS: Vitamin B Complex/Vit C/Vit E 1 EACH TABLET PO SCH (09:41)
[2017-05-05] MEDS: Furosemide 40 MG/4 ML VIAL IVP SCH ×2 (09:42→16:06)
--- NOTE | 2017-05-05 12:02 | Electrocardiograph Report ---
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
[2017-05-05] MEDS: Famotidine 20 MG TABLET PO SCH (16:07)
--- NOTE | 2017-05-05 17:23 | Internal Med Progress Note ---
Date of Encounter: 05/05/17 Time of Encounter: 09:00 - Assessment and plan (1) CHF exacerbation Current Visit: No Status: Acute Assessment and plan: Patient has documented systolic CHF with LVEF 10-15%. On this admission, BNP over 5000, consider CHF exacerbation. - Continue supportive treatment. - Continue Lasix IV 40 mg twice a day, Closely monitor BP - Patient is on metoprolol, no NICOLE inhibitor because of BP intolerance. - May consult cardiology to optimize treatment. Patient is at high risk because of extremely severe dystonic CHF Qualifiers: Congestive heart failure type: systolic Qualified Code(s): I50.23 - Acute on chronic systolic (congestive) heart failure (2) Pulmonary embolism Current Visit: No Status: Chronic Assessment and plan: Patient is on Coumadin. INR 3.3 today Qualifiers: Pulmonary embolism type: other Chronicity: chronic Acute cor pulmonale presence: with acute cor pulmonale Qualified Code(s): I27.82 - Chronic pulmonary embolism; I26.09 - Other pulmonary embolism with acute cor pulmonale (3) CAD S/P percutaneous coronary angioplasty Current Visit: No Status: Chronic Assessment and plan: Denies chest pain. Most recent LHC on 12/16/16 shows patent stents. Continue home medications. (4) Diabetes mellitus Current Visit: No Status: Chronic Assessment and plan: Patient has a low glucose level. Hold all the diabetes medication (Pt is on Glimepiride 2mg bid at home), closely monitor glucose level. Qualifiers: Diabetes mellitus type: type 2 Diabetes mellitus complication status: with hypoglycemia Diabetes mellitus complication detail: without coma Diabetes mellitus long term care administrator insulin use: without long term care administrator use Qualified Code(s): E11.649 - Type 2 diabetes mellitus with hypoglycemia without coma (5) HTN (hypertension) Current Visit: No Status: Chronic Assessment and plan: BP at the lower side. Closer monitor blood pressure. Qualifiers: Hypertension type: essential hypertension Qualified Code(s): I10 - Essential (primary) hypertension (6) LV (left ventricular) mural thrombus Current Visit: No Status: Chronic Assessment and plan: Continue Coumadin. Follow up INR - Time Spent With Patient 25 - 35 minutes - Subjective Interval history: Patient is a 66-year-old male admitted for CHF exacerbation. His past medical history significant for systolic CHF with LVEF 10-15%, history of LV mural thrombosis on Coumadin, CAD, diabetes, hypertension, PE. I saw and examined the patient today. Symptoms of shortness of breath has improved after IV Lasix use. Still very weak. Vital signs stable. We will continue closely monitoring patient. Consult cardiology tomorrow a.m. to optimize treatment. Patient is not compliant with medication and has a history of leaving hospital with AMA on last admission. When asking him regarding AICD placement to prevent a sudden , he said "if it stops, let it go". - Constitutional Vitals: Temp Pulse Resp BP Pulse Ox 97.6 F 74 16 96/64 92 05/05/17 15:54 05/05/17 15:54 05/05/17 15:54 05/05/17 15:54 05/05/17 15:54 General appearance: Present: A&O X 3, no acute distress, underweight, answers questions appropriately - Head Head exam: Present: atraumatic, normocephalic - Eye Eye exam: Present: PERRL, conjuntiva pink, sclera anicteric Pupils: Present: PERRL - Neck Neck exam general surgery: Present: supple, trachea midline. Absent: lymphadenopathy - Respiratory Respiratory exam: Present: CTAB. Absent: accessory muscle use, rales, rhonchi, wheezes - Cardiovascular Cardiovascular exam: Present: JVD, RRR, +S1, +S2. Absent: diastolic murmur, gallop, rubs, systolic murmur - GI/Abdominal GI/Abdominal exam: Present: normal bowel sounds, soft, no peritoneal signs. Absent: distended, tenderness - Extremities Exam Extremities exam: Present: pedal edema, warm, radial pulses palpable and symetrical. Absent: calf tenderness, cyanotic - Neurological Exam Neurological exam: Present: CN II-XII intact, oriented X3, no focal deficits. Absent: pronater drift, facial droop, speech deficit - Skin Skin exam: Present: dry, intact Internal Medicine: Result - Labs CBC & Chem 7: 05/05/17 04:58 05/05/17 04:58 Labs: Short CBC 05/05/17 Range/Units 04:58 WBC 4.7 (4.3-11.1) K/mcL Hgb 12.6 L (12.9-16.9) g/dL Hct 41.5 (37.5-50.1) % Plt Count 109 L (140-400) K/mcL BMP 05/05/17 04:58 Sodium 134 L Potassium 3.8 Chloride 100 Carbon Dioxide 22 BUN 25 Creatinine 0.96 Glucose 49 L Calcium 7.8 L - ABG Interpretation ABG results: ABG ABG pH 7.49 pH Units (7.32-7.45) H 05/04/17 20:44 ABG pCO2 32 mmHg (35-45) L 05/04/17 20:44 ABG pO2 90 mmHg (85-104) 05/04/17 20:44 ABG O2 Saturation 98 % (95-98) 05/04/17 20:44 PT/INR, D-dimer PT 36.5 Seconds (9.4-12.1) H 05/05/17 04:58 Consult Discharge Plan - Plan Referrals: Osiris Rome MD [Primary Care Provider] - 05/10/17 11:30 am ()
--- NOTE | 2017-05-05 17:48 | Electrocardiograph Report ---
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
[2017-05-05] MEDS ORDERED: Warfarin perPT PO PRN (18:00)
[2017-05-06 08:01] LABS: Basophils # 0.1 K/mcL (0.0-0.2); Basophils % 1.1 %; Eosinophils # 0.1 K/mcL (0.0-0.6); Hematocrit 42.5 % (37.5-50.1); Immature Granulocytes % 0.4 % (0-4); Lymphocytes % 42.4 %; Mean Corpuscular HGB Conc 30.6 g/dL (31.6-35.5); Mean Corpuscular Hemoglobin 23.8 pg (28.0-33.3); Mean Corpuscular Volume 77.8 fL (83.0-100.0); Mean Platelet Volume 10.2 fL (9.4-12.4); Monocytes # 0.6 K/mcL (0.0-1.3); Monocytes % 13.7 %; Neutrophils # 1.9 K/mcL (1.6-8.9); Nucleated Red Blood Cells 0.7 /100 WBC (0); Platelet Count 133 K/mcL (140-400); Red Blood Count 5.46 M/mcL (4.19-5.50); Red Cell Distribution Width 23.5 % (11.5-14.5); Segmented Neutrophils % 40.4 %
[2017-05-06 08:16] LABS: BUN/Creatinine Ratio 26 (6-26); Blood Urea Nitrogen 30 mg/dL (8-26); Carbon Dioxide 22 mEq/L (19-29); Chloride 101 mEq/L (98-109); Glucose 59 mg/dL (70-99); Potassium 4.4 mEq/L (3.5-4.5); Sodium 133 mEq/L (136-145); eGFR For African Americans > 60 (> 60); eGFR For Non-African Americans > 60 (> 60)
[2017-05-06 08:17] LABS: Calcium 8.5 mg/dL (8.6-10.8); Osmolality,Calculated 280 (280-300)
[2017-05-06] MEDS: Vitamin B Complex/Vit C/Vit E 1 EACH TABLET PO SCH (09:14)
[2017-05-06] MEDS: Ascorbic Acid 500 MG TABLET PO SCH (09:14)
[2017-05-06] MEDS: Aspirin 81 MG TAB.CHEW PO SCH (09:14)
[2017-05-06] MEDS: Famotidine 20 MG TABLET PO SCH ×2 (09:14→17:52)
[2017-05-06] MEDS: Furosemide 40 MG/4 ML VIAL IVP SCH ×2 (09:15→17:52)
[2017-05-06 09:39] LABS: INR 3.3; Prothrombin Time 37.3 Seconds (9.4-12.1)
--- NOTE | 2017-05-06 10:23 | Cardiology Consult Note ---
<Rao Mike R - Last Filed: 05/06/17 10:20> Date of Encounter: 05/06/17 Time of Encounter: 10:20 Assessment and Plan (1) Acute on chronic systolic CHF (congestive heart failure) Current Visit: Yes Status: Acute Echo 11/2016 EF 10-15%. Pt presents with worsening dyspnea, abdominal distention after meals. Repeat echo to evaluate EF and aortic valve. [facility] 12/2016 without intervention. BNP >5000. Agree with IV diuresis 40mg BID. Recommend strict I/Os, daily weights, Na and fluid restriction. (2) CAD (coronary artery disease) Current Visit: Yes Status: Chronic Hx of PCI to LAD and RCA. [facility] 12/16/16 without intervention. Continue ASA, Statin, BB. Switch BB to Toprol XL given CMP. Qualifiers: Coronary Disease-Associated Artery/Lesion type: [place] artery [place] vs. transplanted heart: [place] heart Associated angina: without angina Qualified Code(s): I25.10 - Atherosclerotic heart disease of [place] coronary artery without angina pectoris (3) Cardiomyopathy Current Visit: Yes Status: Acute EF 10-15%. Hx PCI. [facility] 12/16/16 patent LAD stent, small vessel disease but otherwise moderate disease. 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 Switch BB to Toprol XL. Would recommend adding NICOLE-I prior to discharge as long as BP and renal function tolerate after IV diuresis. Repeat echo. Recommend BB and NICOLE-I (if able to tolerate) for 3 months, then repeating echo and if EF remains <35%, ICD would be warranted as outpt. Qualifiers: Cardiomyopathy type: unspecified Qualified Code(s): I42.9 - Cardiomyopathy , unspecified (4) Anticoagulated on Coumadin Current Visit: Yes Status: Acute INR 3.3. Hx of LV thrombus as recent as 10/2016. Repeat echo 11/2016 no evidence of thrombus. Also on Coumadin for hx of PE. (5) Aortic stenosis Current Visit: Yes Status: Acute Echo 12/13/16 visual low gradient , MG 8mmHg, moderately calcified with moderate reduction in leaflet excursion. Repeat echo. Qualifiers: Cardiac valve disease etiology: etiology unspecified Qualified Code(s): I35.0 - Nonrheumatic aortic (valve) stenosis Discussion w patient/family: The assessment and plan as outlined above was discussed with the patient and/or family members who expressed understanding and agreement. All questions were answered. Thank you for involving us in the care of your patient. Please call with any questions. I will discuss all the above with Dr. Capone and make changes as necessary. History of Present Illness Consult date: 05/06/17 Requesting physician: Dinorah Sands Consult reason: CHF exacerbation Chief complaint: dyspnea, abdominal distention History of present illness: Mr. Saeed is a 66 year old male with hx of CAD s/p PCI LAD and RCA, PE and LV thrombus on Coumadin, DM, HTN, systolic CHF, CMP that presented to ED with complaints of worsening dyspnea and abdominal bloating/fluid. He states over recent days every time he eats or drinks his abdomen swells and makes it difficult for him to breath. He denies missing any Lasix doses. He reports restricting fluids at home and that he does not use additional salt on foods. He denies any chest pain. BNP found to be >5000. Troponin negative x 1. Cardiology consulted for further recommendations. Prior CV testing: LHC 12/16/16: Patent LAD stent, small vessel disease, moderate CAD otherwise. Echo 12/13/16: EF 10-15%, no LV thrombus, RV dilated with moderate reduction in function. Mild-moderate MR, mild-moderate TR, mild-moderate FL, mild AR, low flow MG 8mmHg, moderate calcification with moderate reduction in leaflet excursion, mild-mod phtn. Past Med Surg Social Fam HX - Past Medical History Medical history: cardiomyopathy, CHF, coronary artery disease, diabetes, hyperlipidemia, hypertension, pulmonary embolus Psychiatric history: no psych history - Past Surgical History Surgical History: angioplasty/stent, orthopedic, other - Social History Smoking Status: Never smoker Smokeless Tobacco Status: No Alcohol use: none Drug use: none - Family History Mother Adopted: No Family Member Ethnicity: Non- Living Status: Age at : 84 Hx Family Cardiac Disorders: Yes Hx Family Respiratory Disorders: Yes Hx Family Cancer: No Hx Family GI Disorders: No Hx Family Endocrine Disorder: No Hx Family Neuromuscular Disorders: No Hx Family Neurologic Disorders: No Medications and Allergies Ascorbic Acid [Vitamin C with Pat Hips] 1,000 mg PO DAILY 11/03/16 [History] Aspirin 81 mg PO DAILY 11/03/16 [History] Furosemide [Lasix] 40 mg PO TID 11/03/16 [History] Glimepiride [Amaryl] 2 mg PO BID 11/03/16 [History] [place]-3/Dha/Epa/Fish Oil [Fish Oil 1,000 mg Softgel] 1,000 mg PO DAILY 11/03/16 [History] Vitamin B Complex 1 tab PO DAILY 11/03/16 [History] Warfarin [Coumadin] 3.75 mg PO TUTHSA 12/16/16 [History] Gabapentin [Neurontin] 400 mg PO HS 04/26/17 [History] Metoprolol [Lopressor] 12.5 mg PO BID 04/26/17 [History] Allergies No Known Allergies Allergy (Verified 12/16/16 08:09) All Systems Review: A 10-system review of systems was performed and is negative for pertinent findings except as documented above in the HPI. - Cardiovascular Cardiovascular: as per HPI, dyspnea at rest, dyspnea on exertion - Respiratory Respiratory: cough, dyspnea Physical Examination Vital Signs, Last 4 Hours Temp Pulse Resp BP Pulse Ox 05/06/17 07:50 97.7 F 82 14 106/82 96 Vital Signs Temp Pulse Resp BP Pulse Ox 05/06/17 07:50 97.7 F 82 14 106/82 96 05/06/17 04:48 97.7 F 70 17 95/50 93 05/06/17 01:45 97.7 F 79 16 92/55 92 05/05/17 19:55 97.6 F 76 16 88/54 94 05/05/17 15:54 97.6 F 74 16 96/64 92 05/05/17 10:56 97.5 F L 60 16 81/66 98 Intake and Output 05/05/17 05/06/17 05/06/17 23:59 07:59 15:59 Intake Total 0 / 0 Output Total 75 / 75 Balance -75 / -75 Intake: Oral 0 / 0 Output: Urine 75 / 75 Other: Meal Dinner Percent of Meal Consumed 30% Weight 72.11 kg Blood Glucose* 74 78 Patient Weight 05/06/17 23:59 Weight 72.11 kg General: Conversant, No Apparent Distress HEENT: Atraumatic, Normocephaly, Mucus Membranes Moist Neck: Normal carotid pulses Cardiac: Reg Rate and Rhythm, Normal S1 and S2, Other (2/6 TODD) Lungs: Other (coarse) Neuro: Alert and responsive, No focal deficits noted Abdomen: Soft, Other (abdominal distention) Skin: No rashes noted on visualized skin Musculoskeletal: No Chest Wall Tenderness Extremities: No Clubbing, No Edema Results 05/06/17 07:27 05/06/17 07:27 Lab Results 05/06/17 05/06/17 05/06/17 07:27 07:27 07:27 WBC 4.6 Hgb 13.0 Hct 42.5 Plt Count 133 L INR 3.3 Sodium 133 L Potassium 4.4 Chloride 101 Carbon Dioxide 22 BUN 30 H Creatinine 1.14 Glucose 59 L Calcium 8.5 L Short CBC 05/06/17 Range/Units 07:27 WBC 4.6 (4.3-11.1) K/mcL Hgb 13.0 (12.9-16.9) g/dL Hct 42.5 (37.5-50.1) % Plt Count 133 L (140-400) K/mcL Neutrophils # 1.9 (1.6-8.9) K/mcL BMP 05/06/17 Range/Units 07:27 Sodium 133 L (136-145) mEq/L Potassium 4.4 (3.5-4.5) mEq/L Chloride 101 (98-109) mEq/L Carbon Dioxide 22 (19-29) mEq/L BUN 30 H (8-26) mg/dL Creatinine 1.14 (0.72-1.25) mg/dL Glucose 59 L (70-99) mg/dL Calcium 8.5 L (8.6-10.8) mg/dL Active Medications Acetaminophen (Tylenol) 650 mg PO Q6HR PRN PRN Reason: Mild Pain (1-3) Stop: 11/04/17 01:28 Ascorbic Acid (Vitamin C) 1,000 mg PO DAILY [facility] Stop: 11/04/17 09:01 Last Admin: 05/06/17 09:14 Dose: 1,000 mg Aspirin (Aspirin) 81 mg PO DAILY [facility] Stop: 11/04/17 09:01 Last Admin: 05/06/17 09:14 Dose: 81 mg Famotidine (Pepcid) 20 mg PO 0730,1630 [facility] Stop: 11/04/17 16:31 Last Admin: 05/06/17 09:14 Dose: 20 mg Furosemide (Lasix) 40 mg IVP BIDDIURETIC [facility] Stop: 11/04/17 08:36 Last Admin: 05/06/17 09:15 Dose: 40 mg Metoprolol Tartrate (Lopressor) 12.5 mg PO BID JONATHAN Stop: 11/04/17 09:01 Last Admin: 05/06/17 09:14 Dose: 12.5 mg Naloxone HCl (Narcan) 0.4 mg IVP Q2MIN PRN PRN Reason: Opioid Reversal Stop: 11/04/17 01:28 Ondansetron HCl (Zofran) 4 mg IVP Q8HR PRN PRN Reason: Nausea And Vomiting Stop: 11/04/17 01:28 Vitamin B Complex/Vit C/Vit E (Stresstab) 1 each PO DAILY JONATHAN Stop: 11/04/17 09:01 Last Admin: 05/06/17 09:14 Dose: 1 each Warfarin Sodium (Coumadin Perpt) 1 each PO DAILY@1800 PRN PRN Reason: SEE COMMENTS Stop: 11/04/17 18:01 - Imaging and Cardiology Chest Xray: report reviewed Echo: report reviewed Cardiac cath: report reviewed - EKG Interpretation EKG results cardiology: personally reviewed (SR, no significant changes), other (24 hour tele AVG HR 73, SR.) Consult Discharge Plan - Plan Referrals: Osiris Rome MD [Primary Care Provider] - 05/10/17 11:30 am () <Anali Capone - Last Filed: 05/06/17 13:12> Date of Encounter: 05/06/17 Assessment and Plan Discussion w patient/family: The assessment and plan as outlined above was discussed with the patient and/or family members who expressed understanding and agreement. All questions were answered. Thank you for involving us in the care of your patient. Please call with any questions. History of Present Illness History of present illness: Mr. Saeed is a 66 year old male All Systems Review: A 10-system review of systems was performed and is negative for pertinent findings except as documented above in the HPI. Physical Examination Vital Signs, Last 4 Hours Temp Resp BP Pulse Ox 05/06/17 12:08 97.6 F 16 94/64 96 Results 05/06/17 07:27 05/06/17 07:27 Lab Results 05/06/17 05/06/17 05/06/17 07:27 07:27 07:27 WBC 4.6 Hgb 13.0 Hct 42.5 Plt Count 133 L INR 3.3 Sodium 133 L Potassium 4.4 Chloride 101 Carbon Dioxide 22 BUN 30 H Creatinine 1.14 Glucose 59 L Calcium 8.5 L - Attending Attestation I examined this patient and my medical decision-making was reviewed with the PROVISIONING ANALYST/PA/Advanced Practice Nurse/Resident Physician. I agree with the documented findings, disposition and treatment plan. Mr. Saeed presents with acute on chronic systolic heart failure with worsening dyspnea and abdominal fullness. Agree with IV diuresis, strict I/O's, daily weights, NA and fluid restriction. Last underwent cath recently in December 2016 demonstrating patent stent and small vessel CAD with otherwise moderate disease. Echo will be repeated. Also has history of low flow . IF EF remains <35% after maximal medical therapy, will recommend AICD.
--- NOTE | 2017-05-06 17:19 | Internal Med Progress Note ---
Date of Encounter: 05/06/17 Time of Encounter: 10:00 - Assessment and plan (1) CHF exacerbation Current Visit: No Status: Acute Assessment and plan: Patient has documented systolic CHF with LVEF 10-15%. On this admission, BNP over 5000, consider CHF exacerbation. - Continue supportive treatment. - Continue Lasix IV 40 mg twice a day, Closely monitor BP - Patient is on metoprolol, change to XL toprolol per cardio. May add low dose NICOLE inhibitor if BP tolerant. - Cardiology consult appreciated - We will repeat echo. Patient is at high risk because of extremely severe systolic CHF Qualifiers: Congestive heart failure type: systolic Qualified Code(s): I50.23 - Acute on chronic systolic (congestive) heart failure (2) Pulmonary embolism Current Visit: No Status: Chronic Assessment and plan: Patient is on Coumadin. INR 3.3 today Qualifiers: Pulmonary embolism type: other Chronicity: chronic Acute cor pulmonale presence: with acute cor pulmonale Qualified Code(s): I27.82 - Chronic pulmonary embolism; I26.09 - Other pulmonary embolism with acute cor pulmonale (3) CAD S/P percutaneous coronary angioplasty Current Visit: No Status: Chronic Assessment and plan: Denies chest pain. Most recent LHC on 12/16/16 shows patent stents. Continue home medications. (4) Diabetes mellitus Current Visit: No Status: Chronic Assessment and plan: Patient has a low glucose level. Hold all the diabetes medication (Pt is on Glimepiride 2mg bid at home), closely monitor glucose level. - Glu still low, will start low rate D5 infusion. Qualifiers: Diabetes mellitus type: type 2 Diabetes mellitus complication status: with hypoglycemia Diabetes mellitus complication detail: without coma Diabetes mellitus fci insulin use: without terminal supervisor use Qualified Code(s): E11.649 - Type 2 diabetes mellitus with hypoglycemia without coma (5) HTN (hypertension) Current Visit: No Status: Chronic Assessment and plan: BP at the lower side. Closer monitor blood pressure. Qualifiers: Hypertension type: essential hypertension Qualified Code(s): I10 - Essential (primary) hypertension (6) LV (left ventricular) mural thrombus Current Visit: No Status: Chronic Assessment and plan: Continue Coumadin. Follow up INR (7) DVT prophylaxis Current Visit: Yes Status: Acute Assessment and plan: Patient is on Coumadin - Time Spent With Patient Greater than 35 minutes - Subjective Interval history: Patient is a 66-year-old male admitted for CHF exacerbation. His past medical history significant for systolic CHF with LVEF 10-15%, history of LV mural thrombosis on Coumadin, CAD, diabetes, hypertension, PE. I saw and examined the patient today. Symptoms of shortness of breath has improved after IV Lasix use. Still very weak. Vital signs stable. We will continue closely monitoring patient. Cardiology consult appreciated, change beta amelia to Toprol-XL. - Constitutional Vitals: Temp Pulse Resp BP Pulse Ox 97.4 F L 70 16 89/56 93 05/06/17 16:01 05/06/17 16:01 05/06/17 16:01 05/06/17 16:01 05/06/17 16:01 General appearance: Present: A&O X 3, no acute distress, underweight, answers questions appropriately - Head Head exam: Present: atraumatic, normocephalic - Eye Eye exam: Present: PERRL, conjuntiva pink, sclera anicteric Pupils: Present: PERRL - Neck Neck exam general surgery: Present: supple, trachea midline. Absent: lymphadenopathy - Respiratory Respiratory exam: Present: CTAB. Absent: accessory muscle use, rales, rhonchi, wheezes - Cardiovascular Cardiovascular exam: Present: JVD, RRR, +S1, +S2. Absent: diastolic murmur, gallop, rubs, systolic murmur - GI/Abdominal GI/Abdominal exam: Present: normal bowel sounds, soft, no peritoneal signs. Absent: distended, tenderness - Extremities Exam Extremities exam: Present: pedal edema (B/L), warm, radial pulses palpable and symetrical. Absent: calf tenderness, cyanotic - Neurological Exam Neurological exam: Present: CN II-XII intact, oriented X3, no focal deficits. Absent: pronater drift, facial droop, speech deficit - Skin Skin exam: Present: dry, intact Internal Medicine: Result - Labs CBC & Chem 7: 05/06/17 07:27 05/06/17 07:27 Labs: Short CBC 05/06/17 Range/Units 07:27 WBC 4.6 (4.3-11.1) K/mcL Hgb 13.0 (12.9-16.9) g/dL Hct 42.5 (37.5-50.1) % Plt Count 133 L (140-400) K/mcL Neutrophils # 1.9 (1.6-8.9) K/mcL BMP 05/06/17 07:27 Sodium 133 L Potassium 4.4 Chloride 101 Carbon Dioxide 22 BUN 30 H Creatinine 1.14 Glucose 59 L Calcium 8.5 L - ABG Interpretation ABG results: ABG ABG pH 7.49 pH Units (7.32-7.45) H 05/04/17 20:44 ABG pCO2 32 mmHg (35-45) L 05/04/17 20:44 ABG pO2 90 mmHg (85-104) 05/04/17 20:44 ABG O2 Saturation 98 % (95-98) 05/04/17 20:44 PT/INR, D-dimer PT 37.3 Seconds (9.4-12.1) H 05/06/17 07:27 Consult Discharge Plan - Plan Referrals: Osiris Rome MD [Primary Care Provider] - 05/10/17 11:30 am ()
[2017-05-06] MEDS ORDERED: D5% in Water 1,000 ML IVC SCH (17:30)
--- NOTE | 2017-05-06 17:36 | Electrocardiograph Report ---
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
[2017-05-06] MEDS: Silvasorb 44.4 ML TUBE TP SCH (17:52)
[2017-05-07] MEDS ORDERED: *HR* Warfarin 7.5 MG TABLET PO SCH (01:30)
[2017-05-07 02:37] LABS: Basophils # 0.1 K/mcL (0.0-0.2); Basophils % 1.3 %; Eosinophils # 0.1 K/mcL (0.0-0.6); Eosinophils % 1.8 %; Hematocrit 42.4 % (37.5-50.1); Hemoglobin 13.1 g/dL (12.9-16.9); Immature Granulocytes % 0.2 % (0-4); Lymphocytes # 2.4 K/mcL (0.6-4.6); Mean Corpuscular HGB Conc 30.9 g/dL (31.6-35.5); Mean Corpuscular Hemoglobin 23.4 pg (28.0-33.3); Mean Corpuscular Volume 75.6 fL (83.0-100.0); Monocytes # 0.9 K/mcL (0.0-1.3); Monocytes % 15.7 %; Neutrophils # 2.1 K/mcL (1.6-8.9); Nucleated Red Blood Cells 0.5 /100 WBC (0); Platelet Count 156 K/mcL (140-400); Red Blood Count 5.61 M/mcL (4.19-5.50); Red Cell Distribution Width 22.5 % (11.5-14.5)
[2017-05-07 02:38] LABS: INR 3.7; Prothrombin Time 41.5 Seconds (9.4-12.1)
[2017-05-07 02:48] LABS: BUN/Creatinine Ratio 25 (6-26); Blood Urea Nitrogen 35 mg/dL (8-26); Calcium 8.4 mg/dL (8.6-10.8); Carbon Dioxide 22 mEq/L (19-29); Chloride 98 mEq/L (98-109); Glucose 134 mg/dL (70-99); Osmolality,Calculated 284 (280-300); Potassium 4.1 mEq/L (3.5-4.5); Sodium 132 mEq/L (136-145); eGFR For African Americans > 60 (> 60); eGFR For Non-African Americans 51 (> 60)
--- NOTE | 2017-05-07 08:11 | Cardiology Progress Note ---
Date of Encounter: 05/07/17 Time of Encounter: 08:10 Assessment and Plan (1) Acute on chronic systolic CHF (congestive heart failure) Current Visit: Yes Status: Acute Per Cardiology: Echo 11/2016 EF 10-15%. Pt presents with worsening dyspnea, abdominal distention after meals. [facility] 12/2016 without intervention. BNP >5000. Current echo shows EF 10-15%, severe LV diastolic dysfunction, mild RV dilation with moderate to severe reduction in function, severe biatrial enlargement, findings suggestive of low-flow aortic stenosis with severe decreased function with recommendations to consider ASHLEY (discussion with Dr. Capone, patient poor candidate for ASHLEY at this juncture), moderate MR, severe TR, mild pulmonary hypertension, trivial pericardial effusion, moderate pleural effusion. Will repeat chest x-ray to reevaluate effusions to see if thoracentesis is warranted. On IV Lasix 40mg BID , kidney function slightly worsened. Continue to monitor closely. According to records, +675ml during stay. Upon evaluation today, patient had on bedside table a coffee, 2 cans of soda, a carton of milk, a cup of juice, and 2 large glasses of ice water. Additionally, had IV fluids running at [address] on 1L fluid restriction. DC IVF. If has recurrent low glucose, recommend D50-- limit fluid as much as possible. Strict I/Os, daily weights, Na and fluid restriction. Will apply bilateral SHASHANK hose or Rafa wraps and elevate feet while sitting. Palliative care consult for evaluation of CODE STATUS and discharge planning. Recommend consideration of hospice. Patient appears acutely ill. Patient reports has advanced directives. Uncertain if desires to proceed with DNR/DNI status. (2) Anticoagulated on Coumadin Current Visit: Yes Status: Chronic Per Cardiology: INR 3.7. Hx of LV thrombus as recent as 10/2016. Repeat echo 11/2016 no evidence of thrombus. Also, on Coumadin for hx of PE. Target INR 2.0-3.0. (3) Aortic stenosis Current Visit: Yes Status: Chronic Per Cardiology: See above. Qualifiers: Cardiac valve disease etiology: etiology unspecified Qualified Code(s): I35.0 - Nonrheumatic aortic (valve) stenosis (4) CAD (coronary artery disease) Current Visit: Yes Status: Chronic Per Cardiology: Hx of PCI to LAD and RCA. [facility] 12/16/16 without intervention-- left main 30%, distal LAD 80% (small in size), OM1 60%, and proximal RCA 50%. On ASA, Statin, BB. Qualifiers: Coronary Disease-Associated Artery/Lesion type: [place] artery [place] vs. transplanted heart: [place] heart Associated angina: without angina Qualified Code(s): I25.10 - Atherosclerotic heart disease of [place] coronary artery without angina pectoris Discussion w patient/family: The assessment and plan as outlined above was discussed with the patient who expressed understanding and agreement. All questions were answered. Thank you for involving us in the care of your patient. Please call with any questions. Subjective Principal diagnosis: CHF Interval history: Patient denies CP or palps. Reports mild SOB. Reports + nausea this am. Objective Vital Signs, Last 4 Hours Temp Pulse BP Pulse Ox 05/07/17 04:23 97.5 F L 74 105/81 96 General: Conversant, Other (appears acutely ill) HEENT: Atraumatic, Normocephaly Neck: Other (+JVD) Cardiac: Reg Rate and Rhythm, Normal S1 and S2 Lungs: Other (mild conversational dyspnea noted, diminished throughout) Neuro: Alert and responsive, No focal deficits noted Abdomen: Other (abdominal distension, ascites) Skin: Other Musculoskeletal: No Chest Wall Tenderness Extremities: Other (+1-2 pitting edema bilateral LE) Results 05/07/17 02:12 05/07/17 02:12 Lab Results Laboratory Tests 04/25/17 05/04/17 05/05/17 03:01 21:16 04:58 INR Creatinine 1.04 0.96 Est GFR (Non-Af Amer) > 60 > 60 AST 26 ALT 11 05/06/17 05/07/17 05/07/17 07:27 02:12 02:12 INR 3.7 Creatinine 1.14 1.39 H Est GFR (Non-Af Amer) > 60 51 L AST ALT ITS Impressions Chest X-Ray 05/04/17 20:34 IMPRESSION: Left retrocardiac basilar increased density which may represent sequela of low volumes and the heart size, however focal consolidation in the left retrocardiac region would be difficult to exclude. Scattered prominent markings bilaterally is likely due to atelectasis. D/ / Chris Galeas / Chris Galeas Interpreting Provider: Chris Galeas Intake & Output 05/04/17 05/05/17 05/06/17 05/07/17 23:59 23:59 23:59 23:59 Intake Total 860 / 860 240 / 240 Output Total 150 / 150 275 / 275 Balance 710 / 710 -35 / -35 Weight 72.575 kg 72.1 kg 72.11 kg 73.4 kg Active Medications Acetaminophen (Tylenol) 650 mg PO Q6HR PRN PRN Reason: Mild Pain (1-3) Stop: 11/04/17 01:28 Ascorbic Acid (Vitamin C) 1,000 mg PO DAILY JONATHAN Stop: 11/04/17 09:01 Last Admin: 05/06/17 09:14 Dose: 1,000 mg Aspirin (Aspirin) 81 mg PO DAILY JONATHAN Stop: 11/04/17 09:01 Last Admin: 05/06/17 09:14 Dose: 81 mg Famotidine (Pepcid) 20 mg PO 0730,1630 JONATHAN Stop: 11/04/17 16:31 Last Admin: 05/06/17 17:52 Dose: 20 mg Furosemide (Lasix) 40 mg IVP BIDDIURETIC JONATHAN Stop: 11/04/17 08:36 Last Admin: 05/06/17 17:52 Dose: 40 mg Dextrose (Dextrose 5%) 1,000 mls @ 50 mls/hr IVC .Q20H JONATHAN Stop: 11/05/17 17:31 Last Admin: 05/06/17 17:53 Dose: 50 mls/hr Metoprolol Succinate (Toprol Xl) 12.5 mg PO DAILY JONATHAN Stop: 11/06/17 09:01 Naloxone HCl (Narcan) 0.4 mg IVP Q2MIN PRN PRN Reason: Opioid Reversal Stop: 11/04/17 01:28 Ondansetron HCl (Zofran) 4 mg IVP Q8HR PRN PRN Reason: Nausea And Vomiting Stop: 11/04/17 01:28 Silver Nitrate (Silvasorb) 1 appl TP DAILY JONATHAN Stop: 11/05/17 15:01 Last Admin: 05/06/17 17:52 Dose: 1 appl Vitamin B Complex/Vit C/Vit E (Stresstab) 1 each PO DAILY JONATHAN Stop: 11/04/17 09:01 Last Admin: 05/06/17 09:14 Dose: 1 each Warfarin Sodium (Coumadin Perpt) 1 each PO DAILY@1800 PRN PRN Reason: SEE COMMENTS Stop: 11/04/17 18:01 - Imaging and Cardiology Chest Xray: report reviewed Echo: pending Consult Discharge Plan - Plan Referrals: Osiris Rome MD [Primary Care Provider] - 05/10/17 11:30 am ()
[2017-05-07] MEDS: Famotidine 20 MG TABLET PO SCH ×2 (08:51→18:46)
[2017-05-07] MEDS: Vitamin B Complex/Vit C/Vit E 1 EACH TABLET PO SCH (08:51)
[2017-05-07] MEDS: Furosemide 40 MG/4 ML VIAL IVP SCH ×2 (08:51→18:46)
[2017-05-07] MEDS: Aspirin 81 MG TAB.CHEW PO SCH (08:52)
[2017-05-07] MEDS: Silvasorb 44.4 ML TUBE TP SCH (08:52)
[2017-05-07] MEDS: Ascorbic Acid 500 MG TABLET PO SCH (08:52)
[2017-05-07] MEDS ORDERED: Metoprolol XL (24 HR) Succ 25 MG TAB.ER.24H PO SCH (09:00)
[2017-05-07] MEDS ORDERED: Acetaminophen 325 MG TABLET PO PRN (13:30)
[2017-05-07] MEDS ORDERED: Warfarin perPT PO PRN (13:30)
[2017-05-07] MEDS ORDERED: Naloxone 0.4 MG/ML INJ IVP PRN (13:30)
[2017-05-07] MEDS ORDERED: Ondansetron 4 MG/2 ML VIAL IVP PRN (13:30)
--- NOTE | 2017-05-07 15:30 | Internal Med Progress Note ---
Date of Encounter: 05/07/17 Time of Encounter: 09:00 - Assessment and plan (1) CHF exacerbation Current Visit: No Status: Acute Assessment and plan: Patient has documented systolic CHF with LVEF 10-15%. On this admission, BNP over 5000, consider CHF exacerbation. - Continue supportive treatment. - Continue Lasix IV 40 mg twice a day, Closely monitor BP - Cont beta amelia, dose adjust per cardio - Start temoperary inotropic treatment with Dopamine drip - Repeat echo shows EF 10-15%, dystolic dysfunction. Patient is at high risk because of extremely severe systolic CHF Qualifiers: Congestive heart failure type: systolic Qualified Code(s): I50.23 - Acute on chronic systolic (congestive) heart failure (2) Pulmonary embolism Current Visit: No Status: Chronic Assessment and plan: Patient is on Coumadin. INR 3.7 today. Coumadin dose per pharmacy. Qualifiers: Pulmonary embolism type: other Chronicity: chronic Acute cor pulmonale presence: with acute cor pulmonale Qualified Code(s): I27.82 - Chronic pulmonary embolism; I26.09 - Other pulmonary embolism with acute cor pulmonale (3) CAD S/P percutaneous coronary angioplasty Current Visit: No Status: Chronic Assessment and plan: Denies chest pain. Most recent LHC on 12/16/16 shows patent stents. Continue home medications. (4) Diabetes mellitus Current Visit: No Status: Chronic Assessment and plan: Patient has a low glucose level. Hold all the diabetes medication (Pt is on Glimepiride 2mg bid at home), closely monitor glucose level. Qualifiers: Diabetes mellitus type: type 2 Diabetes mellitus complication status: with hypoglycemia Diabetes mellitus complication detail: without coma Diabetes mellitus halfway insulin use: without halfway use Qualified Code(s): E11.649 - Type 2 diabetes mellitus with hypoglycemia without coma (5) HTN (hypertension) Current Visit: No Status: Chronic Assessment and plan: BP at the lower side. Closer monitor blood pressure. Qualifiers: Hypertension type: essential hypertension Qualified Code(s): I10 - Essential (primary) hypertension (6) LV (left ventricular) mural thrombus Current Visit: No Status: Chronic Assessment and plan: Continue Coumadin. Follow up INR (7) DVT prophylaxis Current Visit: Yes Status: Acute Assessment and plan: Patient is on Coumadin - Time Spent With Patient Greater than 35 minutes - Subjective Interval history: Patient is a 66-year-old male admitted for CHF exacerbation. His past medical history significant for systolic CHF with LVEF 10-15%, history of LV mural thrombosis on Coumadin, CAD, diabetes, hypertension, PE. I saw and examined the patient today. Symptoms of shortness of breath about the same with yesterday. Still very weak. Vital signs stable except BP at lower side. Cardio consult appreciated, pt was transferred to ICU (2N overflow ) to receive dopamine infusion per Cardio. Continue close monitoring. Strict I/ O. - Constitutional Vitals: Temp Pulse Resp BP Pulse Ox 98.1 F 70 22 96/80 99 05/07/17 13:00 05/07/17 14:00 05/07/17 14:00 05/07/17 14:00 05/07/17 14:00 General appearance: Present: A&O X 3, no acute distress, underweight, answers questions appropriately - Head Head exam: Present: atraumatic, normocephalic - Eye Eye exam: Present: PERRL, conjuntiva pink, sclera anicteric Pupils: Present: PERRL - Neck Neck exam general surgery: Present: supple, trachea midline. Absent: lymphadenopathy - Respiratory Respiratory exam: Present: CTAB. Absent: accessory muscle use, rales, rhonchi, wheezes - Cardiovascular Cardiovascular exam: Present: JVD, RRR, +S1, +S2. Absent: diastolic murmur, gallop, rubs, systolic murmur - GI/Abdominal GI/Abdominal exam: Present: normal bowel sounds, soft, no peritoneal signs. Absent: distended, tenderness - Extremities Exam Extremities exam: Present: pedal edema (B/L), warm, radial pulses palpable and symetrical. Absent: calf tenderness, cyanotic - Neurological Exam Neurological exam: Present: CN II-XII intact, oriented X3, no focal deficits. Absent: pronater drift, facial droop, speech deficit - Skin Skin exam: Present: dry, intact Internal Medicine: Result - Labs CBC & Chem 7: 05/07/17 02:12 05/07/17 02:12 Labs: Short CBC 05/07/17 Range/Units 02:12 WBC 5.5 (4.3-11.1) K/mcL Hgb 13.1 (12.9-16.9) g/dL Hct 42.4 (37.5-50.1) % Plt Count 156 (140-400) K/mcL Neutrophils # 2.1 (1.6-8.9) K/mcL BMP 05/07/17 02:12 Sodium 132 L Potassium 4.1 Chloride 98 Carbon Dioxide 22 BUN 35 H Creatinine 1.39 H Glucose 134 H Calcium 8.4 L - ABG Interpretation ABG results: ABG ABG pH 7.49 pH Units (7.32-7.45) H 05/04/17 20:44 ABG pCO2 32 mmHg (35-45) L 05/04/17 20:44 ABG pO2 90 mmHg (85-104) 05/04/17 20:44 ABG O2 Saturation 98 % (95-98) 05/04/17 20:44 PT/INR, D-dimer PT 41.5 Seconds (9.4-12.1) H 05/07/17 02:12 - Impressions Impressions Chest X-Ray 05/07/17 10:16 IMPRESSION: Low lung volumes. No acute cardiopulmonary process. Mild cardiomegaly, stable. D/ / 05/07/2017 14:37:01 Giuseppe Banks MD / thais Interpreting Provider: Giuseppe Banks MD Consult Discharge Plan - Plan Referrals: Osiris Rome MD [Primary Care Provider] - 05/10/17 11:30 am ()
[2017-05-08 06:49] LABS: Basophils % 0.4 %; Nucleated Red Blood Cells 0.3 /100 WBC (0); Red Blood Count 6.34 M/mcL (4.19-5.50)
[2017-05-08 06:51] LABS: Eosinophils # 0.1 K/mcL (0.0-0.6); Eosinophils % 0.8 %; Hematocrit 47.3 % (37.5-50.1); Hemoglobin 14.8 g/dL (12.9-16.9); Immature Granulocytes % 0.3 % (0-4); Immature Platelets 7.1 % (1.1-6.1); Mean Corpuscular HGB Conc 31.3 g/dL (31.6-35.5); Mean Corpuscular Hemoglobin 23.3 pg (28.0-33.3); Mean Corpuscular Volume 74.6 fL (83.0-100.0); Mean Platelet Volume 10.4 fL (9.4-12.4); Monocytes # 0.6 K/mcL (0.0-1.3); Monocytes % 8.1 %; Platelet Count 177 K/mcL (140-400); Red Cell Distribution Width 22.7 % (11.5-14.5); Segmented Neutrophils % 71.4 %
[2017-05-08 06:57] LABS: INR 2.8; Lymphocytes # 1.4 K/mcL (0.6-4.6); Neutrophils # 5.1 K/mcL (1.6-8.9); Prothrombin Time 31.1 Seconds (9.4-12.1)
[2017-05-08 07:01] LABS: BUN/Creatinine Ratio 27 (6-26); Blood Urea Nitrogen 33 mg/dL (8-26); Calcium 8.7 mg/dL (8.6-10.8); Carbon Dioxide 23 mEq/L (19-29); Chloride 96 mEq/L (98-109); Glucose 71 mg/dL (70-99); Osmolality,Calculated 280 (280-300); Potassium 3.7 mEq/L (3.5-4.5); eGFR For African Americans > 60 (> 60); eGFR For Non-African Americans 60 (> 60)
[2017-05-08 07:08] LABS: Sodium 132 mEq/L (136-145)
[2017-05-08 07:41] LABS: Platelet Estimate Normal (Normal)
[2017-05-08] MEDS: Furosemide 40 MG/4 ML VIAL IVP SCH (08:59)
[2017-05-08] MEDS: Famotidine 20 MG TABLET PO SCH (08:59)
[2017-05-08] MEDS ORDERED: Silvasorb 44.4 ML TUBE TP SCH (09:00)
[2017-05-08] MEDS ORDERED: Vitamin B Complex/Vit C/Vit E 1 EACH TABLET PO SCH (09:00)
[2017-05-08] MEDS ORDERED: Ascorbic Acid 500 MG TABLET PO SCH (09:00)
[2017-05-08] MEDS ORDERED: Metoprolol XL (24 HR) Succ 25 MG TAB.ER.24H PO SCH (09:00)
[2017-05-08] MEDS ORDERED: Aspirin 81 MG TAB.CHEW PO SCH (09:00)
--- NOTE | 2017-05-08 09:07 | Transfer Summary ---
Date of Encounter: 05/08/17 Time of Encounter: 09:01 Transfer Discharge Sum: Diag - Discharge Diagnosis (1) Pulmonary embolism Status: Chronic (2) CAD S/P percutaneous coronary angioplasty Status: Chronic (3) CHF (congestive heart failure) Status: Chronic (4) Diabetes mellitus Status: Chronic (5) HTN (hypertension) Status: Chronic (6) CHF exacerbation Status: Acute (7) Acute exacerbation of CHF (congestive heart failure) Status: Acute (8) DVT prophylaxis Status: Acute Transfer Discharge Sum: Med - Medications Active and Home Medications: Home Medications Ascorbic Acid [Vitamin C with Pat Hips] 1,000 mg PO DAILY 11/03/16 [History Confirmed 05/05/17] Aspirin 81 mg PO DAILY 11/03/16 [History Confirmed 05/05/17] Furosemide [Lasix] 40 mg PO TID 11/03/16 [History Confirmed 05/05/17] Glimepiride [Amaryl] 2 mg PO BID 11/03/16 [History Confirmed 05/05/17] [place]-3/Dha/Epa/Fish Oil [Fish Oil 1,000 mg Softgel] 1,000 mg PO DAILY 11/03/16 [History Confirmed 05/05/17] Vitamin B Complex 1 tab PO DAILY 11/03/16 [History Confirmed 05/05/17] Warfarin [Coumadin] 3.75 mg PO TUTHSA 12/16/16 [History Confirmed 05/05/17] Gabapentin [Neurontin] 400 mg PO HS 04/26/17 [History Confirmed 05/05/17] Metoprolol [Lopressor] 12.5 mg PO BID 04/26/17 [History Confirmed 05/05/17] Active Medications Acetaminophen (Tylenol) 650 mg PO Q6HR PRN PRN Reason: Mild Pain (1-3) Stop: 11/04/17 01:28 Ascorbic Acid (Vitamin C) 1,000 mg PO DAILY [facility] Stop: 11/04/17 09:01 Aspirin (Aspirin) 81 mg PO DAILY [facility] Stop: 11/04/17 09:01 Famotidine (Pepcid) 20 mg PO 0730,1630 [facility] Stop: 11/04/17 16:31 Last Admin: 05/07/17 18:46 Dose: Not Given Furosemide (Lasix) 40 mg IVP BIDDIURETIC [facility] Stop: 11/04/17 08:36 Last Admin: 05/07/17 18:46 Dose: Not Given Dopamine HCl/Dextrose (Dopamine Premix 400mg/250ml) 400 mg in 250 mls @ 13.763 mls/hr IVC .[id number] JONATHAN PRN Reason: 5 MCG/KG/MIN Stop: 11/06/17 11:01 Last Admin: 05/07/17 14:16 Dose: 5 mcg/kg/min, 13.763 mls/hr Metoprolol Succinate (Toprol Xl) 12.5 mg PO DAILY JONATHAN Stop: 11/06/17 09:01 Naloxone HCl (Narcan) 0.4 mg IVP Q2MIN PRN PRN Reason: Opioid Reversal Stop: 11/04/17 01:28 Ondansetron HCl (Zofran) 4 mg IVP Q8HR PRN PRN Reason: Nausea And Vomiting Stop: 11/04/17 01:28 Silver Nitrate (Silvasorb) 1 appl TP DAILY [facility] Stop: 11/05/17 15:01 Vitamin B Complex/Vit C/Vit E (Stresstab) 1 each PO DAILY JONATHAN Stop: 11/04/17 09:01 Warfarin Sodium (Coumadin Perpt) 1 each PO DAILY@1800 PRN PRN Reason: SEE COMMENTS Stop: 11/04/17 18:01 Transfer Discharge Sum: Data Procedures and tests throughout hospitalization: Pending Orders 05/05/17 01:31 BIPAP [RC] .PRN CHF discharge checklist [RC] .atdischarge Head of bed elevation [RC] .ONCE Consult to Nurse Navigator [CONS] Routine 05/05/17 01:35 Consult to Physical Therapy [CONS] Routine 05/05/17 07:34 Consult to Axle Inspector [CONS] Routine 05/05/17 08:54 Consult to Occupational Therapy [CONS] Routine 05/05/17 14:14 Consult to Wound Care [CONS] Routine 05/05/17 19:45 Consult to Cardiology [CONS] Routine 05/06/17 07:55 Intake and Output, Strict [RC] DAILY 05/07/17 09:37 Consult to Palliative Care [CONS] Routine 05/07/17 09:41 Misc. Orders Routine 05/07/17 10:16 Apply anti-embolic stockings [RC] .ONCE 05/07/17 13:30 Acetaminophen [Tylenol] 650 mg PO Q6HR PRN DOPamine Premix [DOPamine Premix 400mg/250mL] 400 mg in 250 ml IVC 5 mcg/kg/min Naloxone [Narcan] 0.4 mg IVP Q2MIN PRN Ondansetron [Zofran] 4 mg IVP Q8HR PRN Warfarin perPT [Coumadin perPT] 1 each PO DAILY@1800 PRN 05/07/17 16:30 Famotidine [Pepcid] 20 mg PO 0730,1630 05/07/17 17:00 Furosemide [Lasix] 40 mg IVP BIDDIURETIC 05/07/17 Lunch Fluid Restriction Diet 05/08/17 09:00 Ascorbic Acid [Vitamin C] 1,000 mg PO DAILY Aspirin 81 mg PO DAILY Metoprolol XL (24 HR) Succ [Toprol XL] 12.5 mg PO DAILY Silvasorb 1 appl TP DAILY Vitamin B Complex/Vit C/Vit E [Stresstab] 1 each PO DAILY 05/09/17 04:00 PT/INR [Prothrombin Time INR] [COAG] AM 0400 - Impressions ITS Impressions Chest X-Ray 05/07/17 10:16 IMPRESSION: Low lung volumes. No acute cardiopulmonary process. Mild cardiomegaly, stable. D/ / 05/07/2017 14:37:01 Giuseppe Banks MD / thais Interpreting Provider: Giuseppe Banks MD Transfer Discharge Sum: Prov Date of admission: 05/05/17 01:27 Primary care physician: Osiris Rome MD Consults: 05/05/17 01:31 Consult to Nurse Navigator [CONS] Routine Comment: 05/05/17 01:35 Consult to Physical Therapy [CONS] Routine Comment: Evaluate, develop and implement POC Reason for Consult: pt eval 05/05/17 07:34 Consult to Axle Inspector [CONS] Routine Reason for SW Consult: Possible ECF/ Skilled placement Patient was recently discharged and had refused services before, this time is requesting to go somewhere for rehab. 05/05/17 08:54 Consult to Occupational Therapy [CONS] Routine Comment: Evaluate, develop and implement POC Reason for Consult: eval for ecf 05/05/17 14:14 Consult to Wound Care [CONS] Routine Reason for Consult: multiple feet wounds Call Completed: No 05/05/17 19:45 Consult to Cardiology [CONS] Routine Comment: Consulting Provider: Catalino Simms Reason for Consult: Severe CHF (LVEF 10-15%) with exacerbation, help to optimize treatment. 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 Call Completed: Yes Discharging clinician: Yaneth Vargas Anticipated date of transfer: 05/08/17 Receiving physician/facility: [facility] Transfer Discharge Sum: A/P - Plan Disposition: Transfer Other Transfer Discharge Sum: Hosp Hospital course: Mr. Saeed is a 66 year old male with PMH of HTN, DM, PE on anticoagulation, CHF with combined systolic and dystolic dysfunction, cardiomyopathy who was admitted for CHF decompensation. Patient was started on IV diuretics and followed by cardiology. He was found to have severe systolic dysfunction on the repeat 2D echo with a LVEF of 10-15%. He was started on Dopamine drip given his clinical status. He has severe HF and requires higher level of care for which [facility] failure center was contacted. Patient's case was discussed with Dr. Maddy Santiago who is accepting the patient for transfer to the [facility] HF unit. He will be transferred to [facility] once a bed is available today. Patient demonstrates understanding of his diagnosis and agrees with the transfer. - Time Spent with Patient Total time spent providing and/or coordinating transfer services: Greater than 30 minutes Transfer Discharge Sum: Exam - Constitutional Vitals: Vital Signs Temp Pulse Resp BP Pulse Ox 05/08/17 07:48 98.3 F 05/08/17 07:29 89 19 99/83 96 05/08/17 06:00 102 14 91/79 92 05/08/17 05:00 98 14 98/83 96 05/08/17 04:00 101 14 91/71 95 05/08/17 03:46 106 05/08/17 03:00 98.9 F 106 16 99/86 98 05/08/17 02:00 92 15 100/82 97 05/08/17 01:00 93 15 101/79 98 05/08/17 00:35 97.7 F 87 14 115/81 92 05/07/17 23:00 104 15 115/81 96 05/07/17 22:00 87 14 109/91 93 05/07/17 21:00 96.4 F L 79 14 101/88 97 05/07/17 20:00 80 14 105/87 96 05/07/17 19:00 79 14 104/88 99 05/07/17 18:00 77 21 102/84 94 05/07/17 17:05 78 05/07/17 17:00 78 20 87/76 94 05/07/17 16:00 75 20 87/75 93 05/07/17 15:00 69 22 96/83 93 05/07/17 14:00 70 22 96/80 94 05/07/17 13:00 98.1 F 68 21 94/77 94 05/07/17 11:57 97.6 F 71 18 99/68 94 Intake and Output 05/07/17 05/08/17 05/08/17 23:59 07:59 15:59 Intake Total 240 / 240 Output Total 200 / 200 625 / 625 Balance -200 / -200 -385 / -385 Intake: Oral 240 / 240 Output: Urine 200 / 200 625 / 625 General appearance: no acute distress - Head Head exam: Present: atraumatic, normocephalic - Eye Eye exam: Present: conjuntiva pink, sclera anicteric - Respiratory Respiratory exam: Absent: wheezes (bibasilar crackles) - Cardiovascular Cardiovascular exam: Present: RRR, +S1, +S2 - GI/Abdominal GI/Abdominal exam: Present: normal bowel sounds, soft. Absent: tenderness - Extremities Exam Extremities exam: Present: normal inspection (bilateral pitting edema in lower extremities). Absent: tenderness - Neurological Exam Neurological exam: Present: oriented X3
--- NOTE | 2017-05-08 10:01 | Cardiology Progress Note ---
Date of Encounter: 05/08/17 Time of Encounter: 08:30 Assessment and Plan (1) Acute on chronic systolic CHF (congestive heart failure) Current Visit: Yes Status: Acute Per Cardiology: Echo 11/2016 EF 10-15%. Pt presents with worsening dyspnea, abdominal distention after meals. [facility] 12/2016 without intervention. BNP >5000. Current echo shows EF 10-15%, severe LV diastolic dysfunction, mild RV dilation with moderate to severe reduction in function, severe biatrial enlargement, findings suggestive of low-flow aortic stenosis with severe decreased function with recommendations to consider ASHLEY (discussion with Dr. Capone, patient poor candidate for ASHLEY at this juncture), moderate MR, severe TR, mild pulmonary hypertension, trivial pericardial effusion, moderate pleural effusion. CXR stable. On IV Lasix 40mg BID. Started on dopamine gtt 5mcg/kg/min per verbal order by Dr. Capone yesterday -- IV infiltrated this am, infiltration protocol initiated. According to records, +1090ml during stay. On 1L fluid restriction, Strict I/Os , daily weights, Na and fluid restriction. Apply bilateral SHASHANK hose or Rafa wraps and elevate feet while sitting. Per discussion with Dr. Capone, recs to transfer for advanced heart failure management and evaluation. Discussed with primary service and transfer pending. . (2) Anticoagulated on Coumadin Current Visit: Yes Status: Chronic Per Cardiology: Hx of LV thrombus as recent as 10/2016. Repeat echo 11/2016 no evidence of thrombus. Also, on Coumadin for hx of PE. Target INR 2.0-3.0. (3) Aortic stenosis Current Visit: Yes Status: Chronic Per Cardiology: See above. Qualifiers: Cardiac valve disease etiology: etiology unspecified Qualified Code(s): I35.0 - Nonrheumatic aortic (valve) stenosis (4) CAD (coronary artery disease) Current Visit: Yes Status: Chronic Per Cardiology: Hx of PCI to LAD and RCA. [facility] 12/16/16 without intervention-- left main 30%, distal LAD 80% (small in size), OM1 60%, and proximal RCA 50%. On ASA, Statin, BB. Qualifiers: Coronary Disease-Associated Artery/Lesion type: [place] artery [place] vs. transplanted heart: [place] heart Associated angina: without angina Qualified Code(s): I25.10 - Atherosclerotic heart disease of [place] coronary artery without angina pectoris Discussion w patient/family: The assessment and plan as outlined above was discussed with the patient who expressed understanding and agreement. All questions were answered. Thank you for involving us in the care of your patient. Please call with any questions. Subjective Principal diagnosis: CHF Interval history: Patient denies CP or palps. Reports mild SOB. Reports interest in exploring transfer to evaluate advanced heart failure treatment options. Objective Vital Signs, Last 4 Hours Temp Pulse Resp BP Pulse Ox 05/08/17 07:48 98.3 F 05/08/17 07:29 89 19 99/83 96 05/08/17 06:00 102 14 91/79 92 General: Conversant Neck: Other (+JVD) Cardiac: Reg Rate and Rhythm, Normal S1 and S2, No Murmur Lungs: Other (diminished breath sounds) Neuro: Alert and responsive, No focal deficits noted Abdomen: Other (distended, ascites) Skin: Other (cyanotic appearance) Extremities: Other (+1-2 pitting edema) Results 05/08/17 05:20 05/08/17 05:20 Lab Results Impressions Chest X-Ray 05/07/17 10:16 IMPRESSION: Low lung volumes. No acute cardiopulmonary process. Mild cardiomegaly, stable. D/ / 05/07/2017 14:37:01 Giuseppe Banks MD / carrie Interpreting Provider: Giuseppe Bansk MD Intake & Output 05/05/17 05/06/17 05/07/17 05/08/17 23:59 23:59 23:59 23:59 Intake Total 860 / 860 240 / 240 860 / 860 480 / 480 Output Total 150 / 150 275 / 275 300 / 300 625 / 625 Balance 710 / 710 -35 / -35 560 / 560 -145 / -145 Weight 72.1 kg 72.11 kg 73.4 kg Active Medications Acetaminophen (Tylenol) 650 mg PO Q6HR PRN PRN Reason: Mild Pain (1-3) Stop: 11/04/17 01:28 Ascorbic Acid (Vitamin C) 1,000 mg PO DAILY JONATHAN Stop: 11/04/17 09:01 Last Admin: 05/08/17 09:04 Dose: 1,000 mg Aspirin (Aspirin) 81 mg PO DAILY JONATHAN Stop: 11/04/17 09:01 Last Admin: 05/08/17 08:59 Dose: 81 mg Famotidine (Pepcid) 20 mg PO 0730,1630 JONATHAN Stop: 11/04/17 16:31 Last Admin: 05/08/17 08:59 Dose: 20 mg Furosemide (Lasix) 40 mg IVP BIDDIURETIC JONATHAN Stop: 11/04/17 08:36 Last Admin: 05/08/17 08:59 Dose: 40 mg Dopamine HCl/Dextrose (Dopamine Premix 400mg/250ml) 400 mg in 250 mls @ 13.763 mls/hr IVC .[id number] JONATHAN PRN Reason: 5 MCG/KG/MIN Stop: 11/06/17 11:01 Last Admin: 05/08/17 08:57 Dose: 5 mcg/kg/min, 13.763 mls/hr Metoprolol Succinate (Toprol Xl) 12.5 mg PO DAILY [facility] Stop: 11/06/17 09:01 Last Admin: 05/08/17 09:04 Dose: 12.5 mg Naloxone HCl (Narcan) 0.4 mg IVP Q2MIN PRN PRN Reason: Opioid Reversal Stop: 11/04/17 01:28 Ondansetron HCl (Zofran) 4 mg IVP Q8HR PRN PRN Reason: Nausea And Vomiting Stop: 11/04/17 01:28 Silver Nitrate (Silvasorb) 1 appl TP DAILY [facility] Stop: 11/05/17 15:01 Last Admin: 05/08/17 09:04 Dose: 1 appl Vitamin B Complex/Vit C/Vit E (Stresstab) 1 each PO DAILY JONATHAN Stop: 11/04/17 09:01 Last Admin: 05/08/17 08:59 Dose: 1 each Warfarin Sodium (Coumadin Perpt) 1 each PO DAILY@1800 PRN PRN Reason: SEE COMMENTS Stop: 11/04/17 18:01 - Imaging and Cardiology Chest Xray: report reviewed - EKG Interpretation EKG results cardiology: other Consult Discharge Plan - Plan Referrals: Osiris Rome MD [Primary Care Provider] - 05/10/17 11:30 am ()
--- NOTE | 2017-05-08 10:04 | Event Note ---
Date of Encounter: 05/08/17 Time of Encounter: 10:00 Patient to be transferred to [facility] for evaluation. Conducted conversation with patient regarding Code Status desires. Patient desires to be intubated and mechanically ventilated and have CPR is needed. Patient states that he desires to draft Advanced Directives and list brother Volodymyr (he lives in [place]). He plans to touch base with Volodymyr when he arrives at [facility]. Called other brother Tye Saeed - #[phone] and left message and informed him of patient transfer. Patient is Full Code for transfer.
[2017-05-08 12:17] VITALS: BP 110/92
== END 2017-05-08 12:00 | disposition other institution (70) | DRG 292 ==
LOC: EMEROO 20:19 → 2ANU 20:19 → ICNU 05-07 13:20
PROVIDERS: ADMIT Family Medicine; ATTEND Internal Medicine

== ENCOUNTER 2017-07-01 14:00 | Inpatient (IN) ==
[2017-07-01] MEDS ORDERED: 0.9 % Sodium Chloride 1,000 ML IVC ONE (16:09)
[2017-07-01] MEDS ORDERED: Vancomycin 750 MG in D5% in Water 250 ML IVPB ONE (16:10)
[2017-07-01 16:20] LABS: ABG Base Excess -9.5 mEq/L (-2.0 to 3.0); ABG HCO3 13.6 mEQ/L (21-27); ABG Oxygen Saturation 100 % (95-98); ABG PCO2 23 mmHg (35-45); ABG PH 7.38 pH Units (7.32-7.45); ABG PO2 288 mmHg (85-104); ABG TCO2 14.3 mEq/L (20-26)
[2017-07-01 16:21] LABS: Blood Gas FiO2 100 %
[2017-07-01] MEDS ORDERED: Naloxone 0.4 MG/ML INJ IVP PRN (16:32)
--- NOTE | 2017-07-01 16:42 | Pulmonology History & Physical ---
<Hardeep Jones - Last Filed: 07/01/17 17:12> Date of Encounter: 07/01/17 Time of Encounter: 16:35 Assessment and Plan (1) Cardiogenic shock Current visit: Yes Status: Acute Patient appears to be in cardiogenic shock. Has a history of low ejection fraction of 10%. After Dr Law spoke with the patient's brother and power of director of laboratory operations Volodymyr Saeed is been determined that the patient will be made comfort care. This is a reflection of the patient's wishes. No further interventions will be done and the patient will be made comfortable. The patient will be transferred out of the ICU to a palliative care bed. (2) Sepsis Current visit: Yes Status: Acute Patient was hypothermic, tachycardic and leukopenic. There is concern for sepsis. After Dr Law speaking with the patient's brother Volodymyr Saeed the patient's power of director of laboratory operations it has been decided to make the patient comfort care. This is a reflection of the patient's wishes. Qualifiers: Sepsis type: sepsis due to unspecified organism Qualified Code(s): A41.9 - Sepsis, unspecified organism (3) Hypothermia Current visit: Yes Status: Acute Patient presented to the emergency department in [place] with a temperature of 89.3. They put bear huggers on him there. Most recent temperature here is 96.7. Patient has been made DNR comfort care by the patient's brother and power of director of laboratory operations Volodymyr Saeed. Qualifiers: Encounter type: initial encounter Qualified Code(s): T68.XXXA - Hypothermia , initial encounter (4) Altered mental status Current visit: Yes Status: Acute Patient is minimally responsive. This could be due to cardiogenic shock and/or sepsis. After Dr. Law speaking with the patient's brother and power of director of laboratory operations Volodymyr Saeed the patient has been made DNR comfort care this is a reflection of the patient's wishes. Qualifiers: Altered mental status type: unspecified Qualified Code(s): R41.82 - Altered mental status, unspecified (5) Cardiomyopathy Current visit: No Status: Acute Patient has a history of cardiomyopathy with ejection fraction of 10%. Due to the patient being made comfort care no further interventions will be done and the patient will be made comfortable. Qualifiers: Cardiomyopathy type: unspecified Qualified Code(s): I42.9 - Cardiomyopathy , unspecified History of Present Illness Chief complaint: Hypothermia/Altered mental Status HPI: Mr. Saeed is a 67 year old male was transferred here from [facility]. Patient was brought to [facility] because he was found unresponsive by family. Patient was found to be very cold with an initial temperature of 89.3 degrees. According to medical records the patient had been very ill recently and was in a [facility] on hospice for having a bad heart. He then signed himself of the local prison because he felt that he did not want to there and preferred to at home. The patient is minimally responsive. We have spoken with the patient's power of director of laboratory operations Volodymyr Christophe and he stated that the patient has expressed that he wanted to be comfort care. The brother Volodymyr Saeed spoke with Dr. Law and was in agreement with this. The patient is being made DNR comfort care based on the patient's wishes per the power of director of laboratory operations Volodymyr Saeed. Past Med Surg Social Fam HX - Past Medical History Medical history: cardiomyopathy, CHF, coronary artery disease, diabetes, hyperlipidemia, hypertension, pulmonary embolus Psychiatric history: no psych history - Past Surgical History Surgical History: angioplasty/stent, orthopedic, other - Social History Smoking Status: Never smoker Smokeless Tobacco Status: No Alcohol use: none Drug use: none - Family History Mother Adopted: No Family Member Ethnicity: Non- Living Status: Hx Family Cardiac Disorders: Yes Hx Family Respiratory Disorders: Yes Hx Family Cancer: No Hx Family GI Disorders: No Hx Family Endocrine Disorder: No Hx Family Neuromuscular Disorders: No Hx Family Neurologic Disorders: No Medications and Allergies Ascorbic Acid [Vitamin C with Pat Hips] 1,000 mg PO DAILY 11/03/16 [History] Aspirin 81 mg PO DAILY 11/03/16 [History] Furosemide [Lasix] 40 mg PO TID 11/03/16 [History] Glimepiride [Amaryl] 2 mg PO BID 11/03/16 [History] Forsan-3/Dha/Epa/Fish Oil [Fish Oil 1,000 mg Softgel] 1,000 mg PO DAILY 11/03/16 [History] Vitamin B Complex 1 tab PO DAILY 11/03/16 [History] Warfarin [Coumadin] 3.75 mg PO TUTHSA 12/16/16 [History] Gabapentin [Neurontin] 400 mg PO HS 04/26/17 [History] Metoprolol [Lopressor] 12.5 mg PO BID 04/26/17 [History] metOLazone [Zaroxolyn] 2.5 mg PO 2XW 07/01/17 [History] 3 Allergy/AdvReac Type Severity Reaction Status Date / Time No Known Allergies Allergy Verified 12/16/16 08:09 ROS unobtainable: due to mental status All Systems: A 10-system review of systems was performed and is negative for pertinent findings except as documented above in the HPI. Physical Examination General appearance: lethargic Eyes: nonicteric ENT: oropharynx dry Neck: supple, JVD Effort: normal Auscultation: left: clear, right: rales Cardiovascular: other (Regular but tachycardic) Gastrointestinal: hypoactive bowel sounds Integumentary: other (Patient has cyanotic feet scaling of the lower legs. Patient also had some skin tears on the upper extremities.) Extremities: no edema, cool, cyanosis Musculoskeletal: other (Patient is very malnourished ) unable to assess due to mental status other (Unable to assess due to the patient's mental status) Results - Laboratory Findings ABG ABG pH 7.38 pH Units (7.32-7.45) 07/01/17 16:10 ABG pCO2 23 mmHg (35-45) L 07/01/17 16:10 ABG pO2 288 mmHg (85-104) H 07/01/17 16:10 ABG O2 Saturation 100 % (95-98) H 07/01/17 16:10 Abnormal lab findings: Abnormal lab results ABG pCO2 23 mmHg (35-45) L 07/01/17 16:10 ABG pO2 288 mmHg (85-104) H 07/01/17 16:10 ABG HCO3 13.6 mEQ/L (21-27) L 07/01/17 16:10 ABG Total CO2 14.3 mEq/L (20-26) L 07/01/17 16:10 ABG O2 Saturation 100 % (95-98) H 07/01/17 16:10 ABG Base Excess -9.5 mEq/L (-2.0 to 3.0) L 07/01/17 16:10 POC Glucose 97 (58-89) H 07/01/17 15:32 <Iris Don - Last Filed: 07/01/17 22:22> Date of Encounter: 07/01/17 History of Present Illness HPI: Mr. Saeed is a 67 year old male All Systems: A 10-system review of systems was performed and is negative for pertinent findings except as documented above in the HPI. Physical Examination Vital Signs: Vital Signs, Last 4 Hours Temp Pulse Resp BP Pulse Ox 07/01/17 20:20 97.7 F 72 19 75/65 90 Results - Laboratory Findings ABG ABG pH 7.38 pH Units (7.32-7.45) 07/01/17 16:10 ABG pCO2 23 mmHg (35-45) L 07/01/17 16:10 ABG pO2 288 mmHg (85-104) H 07/01/17 16:10 ABG O2 Saturation 100 % (95-98) H 07/01/17 16:10 Abnormal lab findings: Abnormal lab results ABG pCO2 23 mmHg (35-45) L 07/01/17 16:10 ABG pO2 288 mmHg (85-104) H 07/01/17 16:10 ABG HCO3 13.6 mEQ/L (21-27) L 07/01/17 16:10 ABG Total CO2 14.3 mEq/L (20-26) L 07/01/17 16:10 ABG O2 Saturation 100 % (95-98) H 07/01/17 16:10 ABG Base Excess -9.5 mEq/L (-2.0 to 3.0) L 07/01/17 16:10 POC Glucose 97 (58-89) H 07/01/17 15:32 - Attending Attestation I examined this patient and my medical decision-making was reviewed with the Resident Physician. I agree with the documented findings, disposition and treatment plan as described except to the extent set forth below. I was called by ER physician from the [facility] and was told this patient in shock and he was in hospice, however I was told he wants to be full code. Patient was found to be hypothermic and was receiving Levophed through peripheral lines. Patient arrived to [place] ICU and he was cold, lethargic and not oriented. He is cachetic and skin breakdown in his lower extremities and confused. Patient clinically not doing good and he is hypotensive and distended abdomen with hypoventilation. Our team tried to communicate with patient regarding his code status and in my opinion he is not candidate for CPR due to his generalized poor condition and called his family and they stated he should be only comfort care and that is very reasonable. Called hospitalist and palliative care consulted and patient was transferred to palliative care consult. Patient should be a hospice case.
[2017-07-01] MEDS ORDERED: *HR* LORazepam 2 MG/ML VIAL IVP PRN (17:20)
[2017-07-01] MEDS: *HR* LORazepam 2 MG/ML VIAL IVP PRN (21:51)
[2017-07-02] MEDS ORDERED: Piperacillin/Tazobactam 2.25 GM in D5% in Water (Mini-Bag+) 100 ML IVPB SCH
[2017-07-02 04:56] VITALS: BP 94/63
--- NOTE | 2017-07-02 08:03 | Internal Med Progress Note ---
<Rosa ElenajoseBaljit sahni - Last Filed: 07/02/17 07:59> Date of Encounter: 07/02/17 Time of Encounter: 07:59 (9) - Assessment and plan (1) Cardiogenic shock Current Visit: Yes Status: Acute Assessment and plan: Patient has been made DNR CC No further interventions planned. Palliative consult ordered. Follow Recs. (2) Sepsis Current Visit: Yes Status: Acute Assessment and plan: Pt was hypothermic, tachycardic and leukopenic at [place]. Patient has been made DNR CC No further interventions planned. abx d/c'd Palliative consult ordered. Follow Recs. Qualifiers: Sepsis type: sepsis due to unspecified organism Qualified Code(s): A41.9 - Sepsis, unspecified organism (3) Hypothermia Current Visit: Yes Status: Acute Assessment and plan: Likely secondary to cardiogenic shock Temperature 89.3 at [place]. Bear hugger placed and transferred to ICU at [facility]. Temp 97.7 at last check Patient has been made DNR CC Pt transferred to Palliative bed No further interventions planned. Palliative consult ordered. Follow Recs. Qualifiers: Encounter type: initial encounter Qualified Code(s): T68.XXXA - Hypothermia , initial encounter (4) Altered mental status Current Visit: Yes Status: Acute Assessment and plan: Patient is minimally responsive likely 2/2 to shock + sepsis Patient has been made DNR CC No further interventions planned. Palliative consult ordered. Follow Recs. consider starting pain medications prior to palliative consult as patient has been moaning and apneic. continue PRN ativan Qualifiers: Altered mental status type: unspecified Qualified Code(s): R41.82 - Altered mental status, unspecified (5) Cardiomyopathy Current Visit: No Status: Acute Assessment and plan: Chronic. EF 10%. Patient has been made DNR CC No further interventions planned. Palliative consult ordered. Follow Recs. Qualifiers: Cardiomyopathy type: unspecified Qualified Code(s): I42.9 - Cardiomyopathy , unspecified - Subjective Interval history: Patient was transferred from ICU to palliative care bed. Patient was made DNR- CC and no interventions are being performed for patient. Patient moaning occassionally and per nursing has had some episodes of apnea. He has also had very little urine output per nursing. Currently only active order is ativan PRN and a consult to paliative care. - Constitutional Vitals: Temp Pulse Resp BP Pulse Ox 97.7 F 76 21 94/63 98 07/01/17 20:20 07/02/17 04:52 07/02/17 04:52 07/02/17 04:52 07/02/17 04:52 General appearance: Present: cachectic, A&O X 0 - Eye Eye exam: Present: sclera anicteric - ENT ENT exam: Present: mucous membranes dry - Respiratory Respiratory exam: Present: decreased breath sounds, CTAB. Absent: accessory muscle use, rales, rhonchi, wheezes - Cardiovascular Cardiovascular exam: Present: RRR. Absent: diastolic murmur, gallop, rubs, systolic murmur - GI/Abdominal GI/Abdominal exam: Present: diminished bowel sounds, soft - Extremities Exam Extremities exam: Present: cyanotic. Absent: pedal edema, warm - Neurological Exam Neurological exam: Present: altered. Absent: alert, oriented X3 - Skin Skin exam: Absent: warm Internal Medicine: Result - ABG Interpretation ABG results: ABG ABG pH 7.38 pH Units (7.32-7.45) 07/01/17 16:10 ABG pCO2 23 mmHg (35-45) L 07/01/17 16:10 ABG pO2 288 mmHg (85-104) H 07/01/17 16:10 ABG O2 Saturation 100 % (95-98) H 07/01/17 16:10 Consult Discharge Plan - Plan Referrals: NONE,PCP [Primary Care Provider] - <Vinicius Galaviz H - Last Filed: 07/02/17 12:46> Date of Encounter: 07/02/17 - Constitutional Vitals: Temp Pulse Resp BP Pulse Ox 97.7 F 76 21 94/63 98 07/01/17 20:20 07/02/17 04:52 07/02/17 04:52 07/02/17 04:52 07/02/17 04:52 Internal Medicine: Result - ABG Interpretation ABG results: ABG ABG pH 7.38 pH Units (7.32-7.45) 07/01/17 16:10 ABG pCO2 23 mmHg (35-45) L 07/01/17 16:10 ABG pO2 288 mmHg (85-104) H 07/01/17 16:10 ABG O2 Saturation 100 % (95-98) H 07/01/17 16:10 - Attending Attestation very poor prognosis, full comfort measures I examined this patient and my medical decision-making was reviewed with the Resident Physician. I agree with the documented findings, disposition and treatment plan as described except to the extent set forth below.
[2017-07-02] MEDS: *HR* LORazepam 2 MG/ML VIAL IVP PRN (08:55)
[2017-07-02] MEDS ORDERED: *HR* Morphine 2 MG/ML SYRINGE IVP PRN (09:21)
[2017-07-02] MEDS ORDERED: Atropine Sulfate 1% 40 DROP/2 ML BOTTLE SL PRN (09:22)
--- NOTE | 2017-07-02 09:59 | Palliative - Consult Note ---
Date of Encounter: 07/02/17 Time of Encounter: 09:20 - Assessment and Plan (1) Generalized pain Current Visit: Yes Status: Acute Assessment and plan: Will begin low dose Morphine every hour PRN and monitor. D/W primary nurse Alice. He appears very comfortable when moved or examined (2) Anxiety Current Visit: Yes Status: Acute Assessment and plan: Continue Lorazeapam as currently ordered and monitor (3) Counseling regarding advanced care planning and goals of care Current Visit: Yes Status: Acute Assessment and plan: Will d/w family when they arrive. He was previously at [facility] with [facility]. If he survives weekend, suspect best plan to see if they are able to take pt and re-enroll in [facility]. [facility] does not contract with [facility], so most likely cannot to transition to hospice during this admission. (4) CHF (congestive heart failure) Current Visit: No Status: Chronic Qualifiers: Congestive heart failure type: systolic Congestive heart failure chronicity : acute on chronic Qualified Code(s): I50.23 - Acute on chronic systolic ( congestive) heart failure (5) Cardiomyopathy Current Visit: No Status: Acute Qualifiers: Cardiomyopathy type: unspecified Qualified Code(s): I42.9 - Cardiomyopathy , unspecified Palliative-CN HPI - Data of Consult Patient: known to practice within the last 3 years Consult date: 07/02/17 Requesting Physician: Dinorah Sands MD Primary Care Provider: PCP NONE - Consult Narrative History of present illness: Mr. Saeed is a 67 year old male with a history of CHF and cardiomyopathy, last known EF 10% who was found unresponsive in a shed at his home. Patient is not alert and I cannot reach POA this am, so information taken from chart review. He was here earlier this summer, and we actually saw pt at that time, however, he requested transfer to [facility] for further CHF care and was transferred. By review of records, he did not improved there and was not a candidate for procedures r/t his cachexia. It appears he was may DNRCC and sent to [facility] with [facility]. He signed himself out of ECF and desired to go home to . He was transferred from [place] to our ICU, however shortly later, brother [email or web address] was contacted and desired comfort care only. Upon my visit, he is minimally responsive, but does grimace and moan when examined. Withdraws and resists when extremities examined. Resp irreg. Color dusky. Bilateral feet cold and purplish in color. No family at bedside. CC: Dinorah Sands MD Past Med Surg Social Fam HX - Past Medical History Medical history: cardiomyopathy, CHF, coronary artery disease, diabetes, hyperlipidemia, hypertension, pulmonary embolus Psychiatric history: no psych history - Past Surgical History Surgical History: angioplasty/stent, orthopedic, other - Social History Smoking Status: Never smoker Smokeless Tobacco Status: No Alcohol use: none Drug use: none - Family History Mother Adopted: No Family Member Ethnicity: Non- Living Status: Hx Family Cardiac Disorders: Yes Hx Family Respiratory Disorders: Yes Hx Family Cancer: No Hx Family GI Disorders: No Hx Family Endocrine Disorder: No Hx Family Neuromuscular Disorders: No Hx Family Neurologic Disorders: No Medications and Allergies Ascorbic Acid [Vitamin C with Pat Hips] 1,000 mg PO DAILY 11/03/16 [History] Aspirin 81 mg PO DAILY 11/03/16 [History] Furosemide [Lasix] 40 mg PO TID 11/03/16 [History] Glimepiride [Amaryl] 2 mg PO BID 11/03/16 [History] [place]-3/Dha/Epa/Fish Oil [Fish Oil 1,000 mg Softgel] 1,000 mg PO DAILY 11/03/16 [History] Vitamin B Complex 1 tab PO DAILY 11/03/16 [History] Warfarin [Coumadin] 3.75 mg PO TUTHSA 12/16/16 [History] Gabapentin [Neurontin] 400 mg PO HS 04/26/17 [History] Metoprolol [Lopressor] 12.5 mg PO BID 04/26/17 [History] metOLazone [Zaroxolyn] 2.5 mg PO 2XW 07/01/17 [History] 3 Allergy/AdvReac Type Severity Reaction Status Date / Time No Known Allergies Allergy Verified 12/16/16 08:09 ROS unobtainable: due to mental status Palliative Care-Exam - Constitutional Vitals: Temp Pulse Resp BP Pulse Ox 97.7 F 76 21 94/63 98 07/01/17 20:20 07/02/17 04:52 07/02/17 04:52 07/02/17 04:52 07/02/17 04:52 General appearance: Present: thin - Head Head Exam: Present: normal inspection, normocephalic - Respiratory Respiratory exam: Present: decreased breath sounds, CTAB - Cardiovascular Cardiovascular exam: Present: irregular rhythm, systolic murmur - GI/Abdominal Exam GI/Abdominal exam: Present: diminished bowel sounds, soft - Catheter Type: Urethral (Carlos) Additional comments: Urine dk jacek - Extremities Exam Additional comments: Lower extremities cool to touch. Few dried ulcerated areas bilateral lower extremities. - Neurological Exam Additional comments: Minimally responsive. Moans and becomes restless with exam. Does not open eyes to verbal or tactile stimuli. Internal Medicine - CN: Reslt - ABG Interpretation ABG results: ABG ABG pH 7.38 pH Units (7.32-7.45) 07/01/17 16:10 ABG pCO2 23 mmHg (35-45) L 07/01/17 16:10 ABG pO2 288 mmHg (85-104) H 07/01/17 16:10 ABG O2 Saturation 100 % (95-98) H 07/01/17 16:10 Consult Discharge Plan - Plan Referrals: NONE,PCP [Primary Care Provider] - Palliative Quality Palliative Quality: Screen for Code Status: Yes, Screen for Goals of Care: NA ( awaiting family), Screen for Pain: NA, If Pain Regimen Started, Initiate Bowel Regimen: NA, Screen for Nausea/Vomitting: NA Code Status: 07/01/17 16:32 Resuscitation Status: Active [RES] Routine Comment: Resuscitation Status: DNR-Comfort Care
--- NOTE | 2017-07-02 11:14 | Event Note ---
Date of Encounter: 07/02/17 Time of Encounter: 11:10 Met with pt Brother and RACHEL Helm - he presented copy of POA and I placed in pt chart. Confirms desire for comfort measure only. Discussed that if pt survives , may need to discuss plan for care on Tuesday. Volodymyr unsure if Medicaid still active so this will need verified. He was previously at [facility] for 20 days, but signed himself out as he refused to use his finances for prison care. Was living in a large shed behind his other brother Tye's home. Brother states he has always been very stubborn to accept any assistance. Will D/W palliative social services director on Tuesday if he survives . Resp pattern irreg and not responding. Discussed with Brother, that if any family desires to visit, they should do so soon.
--- NOTE | 2017-07-02 14:01 | Death Note ---
<Baljit Alfred - Last Filed: 07/02/17 15:17> Discharge Sum: Summary - Date and Time Date of admission: 07/01/17 15:26 Date of : 07/02/17 Time of : 12:43 - Summary Details: Pt assessed at 12:43 patient found to have no palpable pulses or respirations by Nurse Emili Mckeon. Confirmed by nurse Mani Robles. Patient was DNRCC so no code was performed. - Additional Data Confirmation of as documented by pronouncing clinician: no pulse, no respirations Family: at bedside Attending/PCP notified?: Yes Attending physician: Dinorah Sands MD Was code activated?: No Discharge Sum: Diag - PCOD Probable Cause of : Cardiorespiratory arrest (Secondary to cardiogenic Shock) Discharge Sum: Prov - Provider Primary care physician: PCP NONE Consults: 07/01/17 16:26 Consult to Palliative Care [CONS] Routine Comment: Consulting Provider: [facility] Reason for Consult: Patient was found down has been in hospice in the past but checked himself out. Brother said to make CC Time Notified: 16:30 Call Completed: Yes Pronouncing clinician: Two Nurses (Alice Mckeon RN and Mani Robles RN ) <Vinicius Galaviz - Last Filed: 07/14/17 07:08> Discharge Sum: Summary - Date and Time Date of admission: 07/01/17 15:26 - Additional Data Attending physician: Dinorah Sands MD Discharge Sum: Prov - Provider Primary care physician: PCP NONE Consults: 07/01/17 16:26 Consult to Palliative Care [CONS] Routine Comment: Consulting Provider: [facility] Reason for Consult: Patient was found down has been in hospice in the past but checked himself out. Brother said to make CC Time Notified: 16:30 Call Completed: Yes - Attending Attestation 67 year old male was transferred here from [facility]. Patient was brought to [facility] because he was found unresponsive by family. Patient was found to be very cold with an initial temperature of 89.3 degrees. According to medical records the patient had been very ill recently and was in a assisted on hospice for end stage heart failure. He then signed himself of the local assisted because he felt that he did not want to there and preferred to do it at home. The patient was minimally responsive. Power of commercial real estate attorney Volodymyr Saeed stated that the patient had expressed that he wanted to be comfort care. The patient was made DNR comfort care based on the patient's wishes per the power of commercial real estate attorney Volodymyr Saeed. Went initially to the ICU and then transferred to the floor on hospice. Cause of was Cardiogenic shock secundary to sepsis ( unidentified source as no further testing was done per family request) No pulse, no spontaneous breathing, no response to painful stimuli, pupils were dilated and fixed. Past Med Surg Social Fam HX - Past Medical History Medical history: cardiomyopathy, CHF, coronary artery disease, diabetes, hyperlipidemia, hypertension, pulmonary embolus Psychiatric history: no psych history I examined this patient and my medical decision-making was reviewed with the Resident Physician. I agree with the documented findings, disposition and treatment plan as described except to the extent set forth below.
== END 2017-07-02 14:15 | disposition expired | DRG 871 ==
LOC: SUATTDRO 15:26 → ICNU 15:26 → 2ANU 18:24
PROVIDERS: ADMIT Internal Medicine Pulmonary Disease; ATTEND Internal Medicine